=== PATIENT | male | born 1945 | race Caucasian/White ===

== ENCOUNTER 2018-09-10 08:30 | Inpatient (IN) ==
[2018-09-10] MEDS ORDERED: ZOFRAN ODT PO ONE (08:54)
[2018-09-10] MEDS ORDERED: MORPHINE IM ONE (08:54)
--- NOTE | 2018-09-10 09:07 | PROVIDER DOCUMENTATION ---
HPI-Musculoskeletal Pain/Inj - GENERAL Chief Complaint: Fall Stated Complaint: FALL/RT SIDE PAIN Time Seen by Provider: 09/10/18 08:40 - HX OF PRESENT ILLNESS-MUSKULOSKELTAL Nature of Presenting Problem: 73 y/o male patient presents with c/o right sided rib and left knee pain. He fell to the ground yesterday in the morning whiles trying to get into his car, buckling his left knee in the process , apart from hurting his right side . He hit his head as well but no nausea, vomiting, significant headache, dizziness, no mental status changes. Patient is on aspirin only. He has taken some oral opioids at home but still in pain. He uses a walker Quality of Pain: reports: sharp Severity in ED: severe Onset/Duration: 24 hours ago Timing: still present Any recent injury?: Yes Locality of Occurance: Home - FALL INJURY Location of Pain/Injury: reports: head (mild), chest (severe), lower extremity ( left knee) Reason for Fall: reports: lost balance Symptoms prior to fall:: reports: none Loss of Consciousness: no loss of consciousness Injury Associated Symptoms: reports: unable to bear weight (left knee). denies : dizziness, headaches Review of Systems - Adult - REVIEW OF SYSTEMS - ADULT Constitutional: reports: no symptoms reported Eyes: reports: no symptoms reported Ears, Nose, Mouth & Throat: reports: no symptoms reported Cardiovascular: reports: no symptoms reported Respiratory: reports: other (pain in right side of chest) Gastrointestinal: reports: no symptoms reported Genitourinary: reports: no symptoms reported Musculoskeletal: reports: joint pain Integumentary: reports: other (bruise on scalp) Neurological: reports: no symptoms reported Psychiatric: reports: no symptoms reported Endocrine: reports: no symptoms reported Hematologic/Lymphatic: reports: no symptoms reported Allergic/Immunologic: reports: no symptoms reported All Other Systems: Reviewed and Negative Past History - Adult - PAST MEDICAL HISTORY-ADULT Review of Records: reports: Nursing Assessment Review Major Childhood Illnesses: reports: denies history Cardiovascular: reports: A-Fib, CAD, HTN, hyperlipidemia Respiratory: reports: denies history Gastrointestinal: reports: GI bleed, other (hiatal hernia) Obstetrical/Gynecological: reports: denies history Genitourinary: reports: denies history Musculoskeletal: reports: other (weakness, chronic) Neurological: reports: denies history Endocrine/Immune: reports: Diabetes Other Conditions: reports: denies history - PRIOR SURGERIES/PROCEDURES Surgical/Procedure History: reports: EGD, cardiac stent, bowel surgery - FAMILY HISTORY Family History: reviewed, not pertinent - SOCIAL HISTORY Substance Use: none/never Alcohol Use Frequency: never Physical Exam-Injury Related - Physical Exam-Injury Related Initial Vital Signs Reviewed: Yes General Appearance: alert, moderate distress Eyes: PERRL/EOMI, pink conjunctivae Head, Ears, Nose, Mouth & Throat: moist mucous membranes, other (small bruise in occiput, without significant swelling nor tenderness) Neck: non-tender, full range of motion, supple Respiratory: decreased breath sounds, rib tenderness (right lower anterior chest wall). negative: rhonchi, wheezing Cardiovascular: tachycardia, irregularly irregular Abdominal Exam: normal bowel sounds, non tender, soft Extremity: pedal edema (trace in both lower extremities), swelling (minimal left knee), tenderness (left knee). negative: normal range of motion (very limited in left knee due to pain), deformity, erythema Integumentary: warm/dry, abrasion (minimal in occiput) Neurologic: grossly normal, no motor/sensory deficits Psych/Mental Status: oriented x 3 - Glascow Coma Score Best Eye Response (Min): (4) open spontaneously Best Verbal Response ([place]): (5) oriented Best Motor Response (Min): (6) obeys commands Progress - PLAN OF CARE/RESULTS Progress/Plan/Lab Results: Vital Signs - 8 hr 09/10/18 08:33 09/10/18 08:46 09/10/18 08:50 Temperature 97.9 F Pulse Rate 79 125 H 119 H Respiratory Rate 18 29 H 28 H Blood Pressure O2 Sat by Pulse Oximetry 90 L 99 99 09/10/18 08:52 09/10/18 08:56 09/10/18 09:00 Temperature Pulse Rate 134 H 115 H 127 H Respiratory Rate 25 H 25 H 18 Blood Pressure 140/119 179/93 O2 Sat by Pulse Oximetry 98 98 98 09/10/18 09:03 09/10/18 09:10 09/10/18 09:20 Temperature Pulse Rate 132 H 117 H 124 H Respiratory Rate 21 19 23 Blood Pressure 158/127 O2 Sat by Pulse Oximetry 98 98 98 09/10/18 09:50 09/10/18 09:55 09/10/18 10:00 Temperature Pulse Rate 123 H 117 H Respiratory Rate 19 25 H Blood Pressure O2 Sat by Pulse Oximetry 88 L 96 97 09/10/18 10:03 09/10/18 10:10 09/10/18 10:11 Temperature Pulse Rate 119 H 124 H 122 H Respiratory Rate 21 22 20 Blood Pressure 127/112 O2 Sat by Pulse Oximetry 97 97 93 L 09/10/18 10:20 09/10/18 10:30 09/10/18 10:40 Temperature Pulse Rate 125 H 120 H 134 H Respiratory Rate 24 22 19 Blood Pressure O2 Sat by Pulse Oximetry 96 95 97 09/10/18 10:50 09/10/18 11:00 09/10/18 11:04 Temperature Pulse Rate 106 H 126 H 123 H Respiratory Rate 21 20 24 Blood Pressure 171/150 O2 Sat by Pulse Oximetry 96 90 L 86 L 09/10/18 11:53 09/10/18 12:00 09/10/18 12:03 Temperature Pulse Rate 117 H 106 H Respiratory Rate 22 24 Blood Pressure 138/113 O2 Sat by Pulse Oximetry 97 88 L 98 09/10/18 12:47 09/10/18 13:00 09/10/18 13:04 Temperature Pulse Rate 117 H 133 H 66 Respiratory Rate 22 26 H 20 Blood Pressure 140/102 164/129 O2 Sat by Pulse Oximetry 95 93 L 93 L 09/10/18 13:05 Temperature Pulse Rate 130 H Respiratory Rate 24 Blood Pressure O2 Sat by Pulse Oximetry 93 L Laboratory Results - last 24 hr 09/10/18 09/10/18 09/10/18 11:35 11:45 11:45 WBC 7.51 RBC 3.95 L Hgb 10.8 L Hct 33.7 L MCV 85.3 MCH 27.3 MCHC 32.0 L RDW Std Deviation 15.6 H Plt Count 217 MPV 10.0 Immature Gran % (Auto) 0.5 Neut % (Auto) 73.8 Lymph % (Auto) 13.3 L [place] % (Auto) 8.0 Eos % (Auto) 4.1 Baso % (Auto) 0.3 Immature Gran # (Auto) 0.04 Neut # (Auto) 5.54 Lymph # (Auto) 1.00 L [place] # (Auto) 0.60 H Eos # (Auto) 0.31 Baso # (Auto) 0.02 PT INR PTT (Actin FS) D-Dimer, Quantitative 3.80 H Specimen Type ARTERIAL Sample Site R RADIAL pH 7.47 H pCO2 38 pO2 45 L* HCO3 27.6 H Base Excess 3.8 H Oxyhemoglobin 79.3 L* ABG O2 Sat (Calculated) 10.4 L ABG O2 Saturation 82.9 L ABG Carboxyhemoglobin 3.40 H ABG Methemoglobin 0.9 Quentin Test YES A-a O2 Difference 57.0 Total Hemoglobin 9.3 L Lactate 1.10 Blood Gas Modality ROOM AIR FiO2 % 21.0 Sodium Potassium Chloride Carbon Dioxide Anion Gap BUN Creatinine Estimated GFR/1.73 m2 BUN/Creatinine Ratio Glucose Calculated Osmolality Calcium Magnesium Total Bilirubin AST ALT Alkaline Phosphatase Creatine Kinase Troponin T [id number] Pept Total Protein Albumin Globulin Albumin/Globulin Ratio 09/10/18 09/10/18 09/10/18 11:45 11:45 11:45 WBC RBC Hgb Hct MCV MCH MCHC RDW Std Deviation Plt Count MPV Immature Gran % (Auto) Neut % (Auto) Lymph % (Auto) [place] % (Auto) Eos % (Auto) Baso % (Auto) Immature Gran # (Auto) Neut # (Auto) Lymph # (Auto) [place] # (Auto) Eos # (Auto) Baso # (Auto) PT 16.7 H INR 1.25 PTT (Actin FS) 37.2 D-Dimer, Quantitative Specimen Type Sample Site pH pCO2 pO2 HCO3 Base Excess Oxyhemoglobin ABG O2 Sat (Calculated) ABG O2 Saturation ABG Carboxyhemoglobin ABG Methemoglobin Quentin Test A-a O2 Difference Total Hemoglobin Lactate Blood Gas Modality FiO2 % Sodium 136 Potassium 4.0 Chloride 98 Carbon Dioxide 24 L Anion Gap 14 BUN 16 Creatinine 1.2 Estimated GFR/1.73 m2 59 BUN/Creatinine Ratio 13 Glucose 167 H Calculated Osmolality 277 Calcium 8.2 L Magnesium Total Bilirubin 0.86 AST 14 ALT 9 L Alkaline Phosphatase 80 Creatine Kinase 93 Troponin T < 0.010 Ykl-[id number]-Dormnktkxjb Pept Total Protein 6.5 Albumin 2.8 L Globulin 3.7 Albumin/Globulin Ratio 0.8 09/10/18 09/10/18 11:45 11:45 WBC RBC Hgb Hct MCV MCH MCHC RDW Std Deviation Plt Count MPV Immature Gran % (Auto) Neut % (Auto) Lymph % (Auto) [place] % (Auto) Eos % (Auto) Baso % (Auto) Immature Gran # (Auto) Neut # (Auto) Lymph # (Auto) [place] # (Auto) Eos # (Auto) Baso # (Auto) PT INR PTT (Actin FS) D-Dimer, Quantitative Specimen Type Sample Site pH pCO2 pO2 HCO3 Base Excess Oxyhemoglobin ABG O2 Sat (Calculated) ABG O2 Saturation ABG Carboxyhemoglobin ABG Methemoglobin Quentin Test A-a O2 Difference Total Hemoglobin Lactate Blood Gas Modality FiO2 % Sodium Potassium Chloride Carbon Dioxide Anion Gap BUN Creatinine Estimated GFR/1.73 m2 BUN/Creatinine Ratio Glucose Calculated Osmolality Calcium Magnesium 1.6 Total Bilirubin AST ALT Alkaline Phosphatase Creatine Kinase Troponin T Mrw-O-Fknlfuiahrv Pept 3351 H Total Protein Albumin Globulin Albumin/Globulin Ratio Orders Category Date Time Status CT ANGIOGRM PULMONARY ARTERIES [CT] Stat Exams 09/10/18 11:47 Completed KNEE 3 VIEWS LEFT [RAD] Stat Exams 09/10/18 08:53 Completed RIBS UNILAT W/PA CHEST RIGHT [RAD] Stat Exams 09/10/18 08:51 Completed ABG [RESP] Routine Lab 09/10/18 11:35 Completed CBC WITH ELECTRONIC DIFF [HEME] Stat Lab 09/10/18 11:45 Completed CK PROFILE [SP CHEM] Stat Lab 09/10/18 11:45 Completed COMPREHENSIVE METABOLIC PANEL [CHEM] Stat Lab 09/10/18 11:45 Completed D-DIMER [COAG] Stat Lab 09/10/18 11:45 Completed MAGNESIUM [CHEM] Stat Lab 09/10/18 11:45 Completed PRO B-NATRIURETIC PEPTIDE Stat Lab 09/10/18 11:45 Completed PT [PROTIME WITH INR] [COAG] Stat Lab 09/10/18 11:45 Completed PTT [COAG] Stat Lab 09/10/18 11:45 Completed TROPONIN T Stat Lab 09/10/18 11:45 Completed Furosemide [Lasix] Med 09/10/18 15:23 Discontinued 40 mg IV NOW ONE Ketorolac [Toradol] Med 09/10/18 15:12 Discontinued 15 mg IV NOW ONE Morphine Med 09/10/18 08:54 Discontinued 4 mg IM NOW ONE Ondansetron Odt [Zofran Odt] Med 09/10/18 08:54 Discontinued 4 mg PO NOW ONE EKG [EKG] Stat Ther 09/10/18 08:45 Draft Result Diagrams: 09/10/18 11:45 09/10/18 11:45 - REASSESSMENT Reassessment #1 Time Reassessed: 10:45 Status: improving (less pain in ribs and left knee; patient is currently not on anticoagulant due to h/o GI bleed) Reassessment #2 Time Reassessed: 11:45 Status: worsening (patient has oxygen saturations in the low 80s on room air, as such further work up of hypoxemia will be done) - EKG 1 Time of EKG reading by physician:: 08:46 EKG Read and Signed by:: Wilbert Solis EKG Interpretation (*Must complete 3 of following elements*): Abnormal (atrial fibrillation with rapid ventricular response) Rate: 131 [place]: normal - XRAY 1 XRAY: Left XRAY Study: Knee Impression: Normal ( EXAM: KNEE 3 VIEWS LEFT HISTORY: fall; left knee pain TECHNIQUE: Left knee, three views COMPARISON: None. FINDINGS: No fracture. No dislocation. Moderate to prominent arthritis. Moderate atherosclerosis. IMPRESSION: No acute bony injury. Electronically signed by Rob Young 09/10/2018 9:48 AM 09/10/18 0948 Interpreting Physician: Rob Young MD Dictated Date/Time: 09/10/18 0930) 2 XRAY: Right XRAY Study: Ribs Impression: Abnormal ( EXAM: RIBS UNILAT W/PA CHEST RIGHT INDICATION: fall; left lower sided chest pain TECHNIQUE: 5 views COMPARISON: None. FINDINGS : There are several healed rib fractures on the right. These can also be seen on the prior CT of the chest dated 02/07/2018. No definite acute rib fracture can be identified by plain radiograph. There are fibrotic changes throughout the right lung. There is a small chronic pleural effusion on the left that can also be seen on the prior CT. No pleural fluid collection or pneumothorax is identified. IMPRESSION: Several chronic appearing rib fractures on the right. No acute fracture is identified by plain radiograph. Electronically signed by Neno Mckeon 09/10/2018 10:21 AM 09/10/18 1021 Interpreting Physician: Neno Mckeon MD Dictated Date/Time: 09/10/18 1019) XRAY Interpretation: No acute fracture - CT/MRI 1 CT Study: Angiogram, Thorax Impression: Abnormal ( EXAM: CT ANGIOGRM PULMONARY ARTERIES 09/10/2018 HISTORY : chest pain; hypoxemia TECHNIQUE: This exam was performed using automated exposure control, adjustment of mA or kV according to patient size, and/or use of iterative reconstruction technique. COMMENT: 3-D MIPS were performed. The current examination is compared with 02/07/2018. There are bilateral pleural effusions. There was previously no fluid on the right side. The left effusion was present previously. Some of this may be loculated anteriorly on the current study. There are no filling defects in the pulmonary arteries. The aorta is normal in caliber without evidence of dissection. There are some atherosclerotic calcifications with extensive calcification within the coronary arteries. There is compressive atelectasis in both lung bases. The possibility of pneumonia particularly in the lower lobes cannot be excluded. The possibility of pulmonary edema cannot be excluded. In the inferior portion of the right upper lobe there is ill-defined groundglass/interstitial opacity which was not as severe on the previous study however there may have been some degree of interstitial edema and/or fibrosis at that time. There are number of enlarged mediastinal nodes particularly in the right paratracheal region where there is a node measuring over 21mm. This measured over 22 mm at the time the previous study IMPRESSION: New right pleural effusion. Worsened pulmonary edema and/or pneumonia since 02/07/2018. No evidence of pulmonary emboli. Electronically signed by Yehuda Roldan 09/10/2018 2:18 PM 09/10/18 1418 Interpreting Physician: Yehuda Roldan MD Dictated Date/Time: 1413) - CONSULTS/PCP/HOSPITALIST Notification #1 *Consult/PCP/Hospitalist*: KAVEH Hoyos/Dr. Figueroa Time Discussed: 15:32 Consult Disposition: Admit Departure - Departure Date of Disposition Decision: 09/10/18 Time of Disposition Decision: 15:32 DIAGNOSIS: Rib pain on right side, Atrial fibrillation with rapid ventricular response Fall Qualifiers: Encounter type: initial encounter Qualified Code(s): W19.XXXA - Unspecified fall, initial encounter Knee pain, acute Qualifiers: Laterality: left Qualified Code(s): M25.562 - Pain in left knee Pulmonary edema Qualifiers: Chronicity: acute Qualified Code(s): J81.0 - Acute pulmonary edema Respiratory failure with hypoxia Qualifiers: Chronicity: acute Qualified Code(s): J96.01 - Acute respiratory failure with hypoxia Disposition: ADMITTED INPATIENT 09 Certified Medical Emergency: Emergent Condition: Serious Discharge Education: Fall Prevention in the Home, [id number], Rib Contusion, Knee Pain, Adult, [id number], Atrial Fibrillation, [id number] - Critical Care Note This patient required my direct & personal management of CC.: No Attestation - Physician/ LOIVER Attestation The physician spent face to face time with patient:: Yes Advanced Practice Provider documentation review:: Supervising physician onsite and consulted in the evaluation and care of this patient. The physician did have a face to face encounter with the patient.
--- NOTE | 2018-09-10 09:50 | Diag Imaging Result Doc PS360 ---
EXAM: KNEE 3 VIEWS LEFT HISTORY: fall; left knee pain TECHNIQUE: Left knee, three views COMPARISON: None. FINDINGS: No fracture. No dislocation. Moderate to prominent arthritis. Moderate atherosclerosis. IMPRESSION: No acute bony injury. Electronically signed by Rob Young 09/10/2018 9:48 AM
--- NOTE | 2018-09-10 10:23 | Diag Imaging Result Doc PS360 ---
EXAM: RIBS UNILAT W/PA CHEST RIGHT INDICATION: fall; left lower sided chest pain TECHNIQUE: 5 views COMPARISON: None. FINDINGS: There are several healed rib fractures on the right. These can also be seen on the prior CT of the chest dated 02/07/2018. No definite acute rib fracture can be identified by plain radiograph. There are fibrotic changes throughout the right lung. There is a small chronic pleural effusion on the left that can also be seen on the prior CT. No pleural fluid collection or pneumothorax is identified. IMPRESSION: Several chronic appearing rib fractures on the right. No acute fracture is identified by plain radiograph. Electronically signed by Neno Mckeon 09/10/2018 10:21 AM
[2018-09-10 11:40] LABS: ALLEN TEST YES; BE 3.8 mmoll (-3.0-3.0); BLOOD TYPE ARTERIAL; HCO3-(ACT) 27.6 mmoll (20.0-26.0); METHB 0.9 % (0.0-1.5); O2(CT) 10.4 mL/dL (15.0-23.0); PCO2(98.6) 38 mmHg (35-45); SAMPLE BLOOD; SAO2 82.9 % (95.0-100.0); THB 9.3 g/dL (11.5-17.4); pH(98.6) 7.47 (7.35-7.45)
[2018-09-10 11:41] LABS: MODALITY ROOM AIR; O2HB 79.3 % (95.0-99.0); PO2(98.6) 45 mmHg (60-100)
[2018-09-10 12:05] LABS: BASO# 0.02 X1000 (0.0-0.2); BASO% 0.3 % (0.0-0.8); EOS# 0.31 X1000 (0.0-0.7); EOS% 4.1 % (0.0-10.0); HEMATOCRIT 33.7 % (42.0-52.0); HEMOGLOBIN 10.8 g/dL (14.0-18.0); IMM GRAN# 0.04 X1000 (0.0-0.04); IMM GRAN% 0.5 % (0.0-0.5); LYMPH% 13.3 % (20.5-51.1); MCH 27.3 PG (27-31); MCV 85.3 FL (81-99); NEUT# 5.54 X1000 (1.4-6.5); NEUT% 73.8 % (42.2-75.2); PLT 217 X1000 (130-400); RBC 3.95 XMIL (4.7-6.1); RDW 15.6 % (11.5-14.5); WBC 7.51 X1000 (4.8-10.8)
[2018-09-10 12:16] LABS: INR 1.25; PROTIME 16.7 Seconds (11.0-16.0)
[2018-09-10 12:17] LABS: PTT 37.2 Seconds (22.3-41.8)
[2018-09-10 12:30] LABS: ALB/GLOB RATIO 0.8; ALBUMIN 2.8 g/dL (3.5-5.0); CALCIUM 8.2 mg/dL (8.8-10.2); CREATININE 1.2 mg/dL (0.7-1.2); TOTAL BILIRUBIN 0.86 mg/dL (0.20-1.00); TOTAL PROTEIN 6.5 g/dL (6.3-8.3)
--- NOTE | 2018-09-10 14:20 | Diag Imaging Result Doc PS360 ---
EXAM: CT ANGIOGRM PULMONARY ARTERIES 09/10/2018 HISTORY: chest pain; hypoxemia TECHNIQUE: This exam was performed using automated exposure control, adjustment of mA or kV according to patient size, and/or use of iterative reconstruction technique. COMMENT: 3-D MIPS were performed. The current examination is compared with 02/07/2018. There are bilateral pleural effusions. There was previously no fluid on the right side. The left effusion was present previously. Some of this may be loculated anteriorly on the current study. There are no filling defects in the pulmonary arteries. The aorta is normal in caliber without evidence of dissection. There are some atherosclerotic calcifications with extensive calcification within the coronary arteries. There is compressive atelectasis in both lung bases. The possibility of pneumonia particularly in the lower lobes cannot be excluded. The possibility of pulmonary edema cannot be excluded. In the inferior portion of the right upper lobe there is ill-defined groundglass/interstitial opacity which was not as severe on the previous study however there may have been some degree of interstitial edema and/or fibrosis at that time. There are number of enlarged mediastinal nodes particularly in the right paratracheal region where there is a node measuring over 21mm. This measured over 22 mm at the time the previous study IMPRESSION: New right pleural effusion. Worsened pulmonary edema and/or pneumonia since 02/07/2018. No evidence of pulmonary emboli. Electronically signed by Yehuda Roladn 09/10/2018 2:18 PM
--- NOTE | 2018-09-10 14:29 | EKG Report ---
Test Performed on : 09/10/2018 08:46:47 AM Test Reason : NO EKG ORDER FOR MUSE Blood Pressure : / mmHG Vent. Rate : 131 BPM Atrial Rate : 115 BPM P-R Int : 000 ms QRS Dur : 094 ms QT Int : 338 ms P-R-T Axes : 000 003 025 degrees QTc Int : 499 ms Atrial fibrillation. with rapid ventricular response. with premature ventricular or aberrantly conduc vanessa complexes. Abnormal ECG When compared with ECG of 06-OCT-2015 10:55, Left anterior fascicular block is no longer present Unconfirmed Result
[2018-09-10] MEDS ORDERED: TORADOL IV ONE (15:12)
[2018-09-10] MEDS ORDERED: LASIX IV ONE (15:23)
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
[2018-09-10] MEDS: ROCEPHIN 1 GM in NS 50 ML IV SCH (17:36)
[2018-09-10 18:10] LABS: BASO# 0.02 X1000 (0.0-0.2); BASO% 0.3 % (0.0-0.8); EOS# 0.39 X1000 (0.0-0.7); EOS% 6.1 % (0.0-10.0); HEMOGLOBIN 10.5 g/dL (14.0-18.0); IMM GRAN# 0.05 X1000 (0.0-0.04); IMM GRAN% 0.8 % (0.0-0.5); LYMPH# 0.87 X1000 (1.2-3.4); LYMPH% 13.5 % (20.5-51.1); MCH 27.3 PG (27-31); MCHC 31.8 g/dL (33-37); MCV 85.9 FL (81-99); MONO# 0.62 X1000 (0.11-0.59); MONO% 9.6 % (1.7-9.3); NEUT# 4.48 X1000 (1.4-6.5); NEUT% 69.7 % (42.2-75.2); PLT 224 X1000 (130-400); RBC 3.84 XMIL (4.7-6.1); RDW 15.7 % (11.5-14.5); WBC 6.43 X1000 (4.8-10.8)
[2018-09-10 18:20] LABS: IRON SATURATION 17 %; TIBC 243 ug/dL; TOTAL IRON 42 ug/dL (53-167); UNBOUND IRON 201 ug/dL (112-346)
[2018-09-10] MEDS: CARDIZEM PO SCH (18:22)
[2018-09-10] MEDS: DUONEB (A & A) INH SCH ×2 (19:01→23:20)
[2018-09-10] MEDS: LOPRESSOR PO SCH (21:26)
[2018-09-10] MEDS: HUMULIN R SUBQ SCH (21:26)
[2018-09-11] MEDS: MORPHINE IV PRN ×5 (01:24→19:59)
[2018-09-11 02:24] LABS: CK INDEX 1.4 (0.0-2.5); CK-MB 3.06 ng/mL (0.0-5.0)
[2018-09-11] MEDS: DUONEB (A & A) INH SCH ×6 (03:48→23:30)
[2018-09-11 05:23] LABS: BASO# 0.01 X1000 (0.0-0.2); BASO% 0.1 % (0.0-0.8); EOS# 0.33 X1000 (0.0-0.7); EOS% 4.6 % (0.0-10.0); HEMATOCRIT 32.1 % (42.0-52.0); HEMOGLOBIN 10.2 g/dL (14.0-18.0); IMM GRAN# 0.06 X1000 (0.0-0.04); IMM GRAN% 0.8 % (0.0-0.5); LYMPH# 0.77 X1000 (1.2-3.4); LYMPH% 10.7 % (20.5-51.1); MCH 27.5 PG (27-31); MCHC 31.8 g/dL (33-37); MCV 86.5 FL (81-99); MONO# 0.58 X1000 (0.11-0.59); MPV 9.9 FL (7.4-10.4); NEUT# 5.48 X1000 (1.4-6.5); NEUT% 75.8 % (42.2-75.2); PLT 214 X1000 (130-400); RBC 3.71 XMIL (4.7-6.1); RDW 15.8 % (11.5-14.5); WBC 7.23 X1000 (4.8-10.8)
[2018-09-11 05:36] LABS: HEMOGLOBIN A1C 6.1 % (4.8-6.0)
[2018-09-11 05:44] LABS: CALCIUM 7.7 mg/dL (8.8-10.2); CREATININE 1.5 mg/dL (0.7-1.2); POTASSIUM 4.1 mmol/L (3.5-5.1)
--- NOTE | 2018-09-11 07:32 | EKG Report ---
Test Performed on : 09/11/2018 06:45:09 AM Test Reason : afib rvr Blood Pressure : / mmHG Vent. Rate : 113 BPM Atrial Rate : 120 BPM P-R Int : 000 ms QRS Dur : 096 ms QT Int : 346 ms P-R-T Axes : 000 -04 -18 degrees QTc Int : 474 ms Atrial fibrillation. with rapid ventricular response. with premature ventricular or aberrantly conduc vanessa complexes. Low voltage QRS Abnormal ECG When compared with ECG of 10-SEP-2018 08:46, (Unconfirmed) No significant change was found Confirmed by Mendoza SOLIMAN, Quentin Roper ([id number]) on 09/11/2018 4:52:38 PM
[2018-09-11] MEDS ORDERED: LASIX IV SCH (08:00)
[2018-09-11] MEDS: HUMULIN R SUBQ SCH ×2 (08:09→20:00)
[2018-09-11] MEDS: ASPIRIN PO SCH (08:10)
[2018-09-11] MEDS: LOPRESSOR PO SCH ×2 (08:10→20:00)
[2018-09-11] MEDS: CARDIZEM PO SCH ×3 (08:10→20:00)
--- NOTE | 2018-09-11 10:16 | Diag Imaging Result Doc PS360 ---
EXAM: CHEST-2 VIEWS 09/11/2018 HISTORY: POST THORACENTESIS TECHNIQUE: Inspiratory expiratory PA upright COMMENT: There is no evidence of pneumothorax. Considering differences in technique the appearance of the chest has not changed appreciably since the previous examination of 09/10/2018. There is still a fair amount of pleural fluid on the left and there is apparent pulmonary edema. There is cardiomegaly. IMPRESSION: No evidence of pneumothorax. Pulmonary edema cardiomegaly and left pleural effusion. Electronically signed by Yehuda Roldan 09/11/2018 10:14 AM
--- NOTE | 2018-09-11 11:24 | PROGRESS NOTE ---
DATE: 09/11/2018 SUBJECTIVE: This patient is complaining a little bit of shortness of breath and left knee pain. He fell a few days ago and he hit his left knee. X-ray did not show any acute bony abnormality or injury. No fracture. He just had a thoracentesis done on the right side and only a small amount of fluid has been removed, less than 50 mL. I do believe it is 44 mL. Pulmonary department is on board. He is still in atrial fibrillation with RVR but the heart rate has been in the 110s mostly. We have placed this patient back on diltiazem and metoprolol tartrate. Cardiology department has been consulted. He has not been on anticoagulation before because he had a really severe GI bleed. Apparently, he required around 11 units of blood. He was transferred to [facility] and apparently they did a capsule endoscopy. They did not find the source of bleeding. I do believe this is the reason why he is not on blood thinners at this moment, only aspirin. OBJECTIVE: Vital Signs: Temperature. 99.5, pulse 113, respiratory rate 20, blood pressure 154/94, oxygen saturation 93 on 2 L of nasal cannula. HEENT: Head normocephalic. No trauma. PERRLA. Neck: Supple. No JVD. No masses. Central trachea. Chest: Decreased breath sounds at the bases with some rales at the bases as well. Abdomen: Soft, obese, protuberant, nontender, nondistended. No hepatosplenomegaly. Extremities: No edema. No clubbing. No cyanosis. His left knee looks a little bit more edematous compared with the right knee. No signs of infection. A little bit of localized redness which is painful to palpation. Neurological Examination: Alert and oriented x3. No focal deficits. Laboratory: WBCs 7.2, hemoglobin 10.2, hematocrit 32.1, platelets 214,000. Sodium 133, potassium 4.1, chloride 96, bicarbonate 26, BUN 22, creatinine 1.5, glucose 216, hemoglobin A1c 6.1, calcium 7.7. Troponins negative x3. ASSESSMENT AND PLAN: 1. Bilateral pleural effusion with hypoxemic respiratory failure, status post thoracentesis on the right side. Also, he is getting diuretics. He has been placed on 40 of Lasix twice a day but I will decrease it to once a day due to his chronic kidney disease. From the thoracentesis, they removed just a little bit of fluid, I do believe around 44 mL. I do not think this patient has pneumonia, at least clinically, but he has been placed on ceftriaxone. I will wait for the sputum culture. I will keep him on antibiotics for at least 1 or 2 more days. Blood cultures so far negative. 2. Atrial fibrillation with rapid ventricular response. His heart rate has been mostly in the 110s. This is probably the cause of his pulmonary venous hypertension and pleural effusion. Probably congestive heart failure as well. 3. History of chronic obstructive pulmonary disease. He is not complaining of chest pain. Troponins are negative x3. 4. Morbid obesity with a body mass index of 40.3. 5. Soft tissue injury to his left knee due to recent trauma. Aware. No bony abnormality on the x-ray. He may need to go to rehabilitation to improve his deconditioning and weakness. 6. History of severe gastrointestinal bleed. He had an esophagogastroduodenoscopy done on 08/24/2018 that showed gastritis. He is not complaining of shortness of breath or abdominal pain. He also had apparently a capsule endoscopy done at [facility] and they did not find a source of infection. 7. Type 2 diabetes. Continue with the sliding scale insulin and pattern of blood sugar. We will monitor. 8. Patient seems to be stable at this moment. Probably will need to get a thoracentesis done today in the afternoon or tomorrow morning on the left side, which I believe is bigger than the right side. Cardiology department and pulmonary department consulted, pending recommendations. cc: Baron Cisneros MD
[2018-09-11 14:09] LABS: TOTAL PROT BODY FLUID 2.8 g/dL
[2018-09-11 14:21] LABS: AMYLASE BODY FLUID 27 U/L; GLUCOSE BODY FLUID 235 mg/dL; LDH BODY FLUID 167 U/L
[2018-09-11 14:56] LABS: SPECIMEN PLEURAL FLUID
[2018-09-11 15:10] LABS: BODY FLUID SOURCE PLEURAL FLUID; MONOS 87 %; POLYS 13 %; WBC BF 1942 /cumm
[2018-09-11] MEDS: ROCEPHIN 1 GM in NS 50 ML IV SCH (16:12)
[2018-09-11] MEDS ORDERED: NAPROSYN PO PRN (16:40)
[2018-09-11 16:45] LABS: URINE SOURCE CLEAN CATCH
[2018-09-11 16:51] LABS: BILIRUBIN URINE NEGATIVE (NEGATIVE); BLOOD URINE MODERATE (NEGATIVE); COLOR YELLOW; GLUCOSE URINE NEGATIVE (NEGATIVE); KETONE URINE NEGATIVE (NEGATIVE); LEUKOCYTES URINE NEGATIVE (NEGATIVE); NITRITE URINE NEGATIVE (NEGATIVE); PH URINE 5.5; PROTEIN URINE 30 mg/dL (NEGATIVE); SP GRAVITY URINE 1.022; TURBIDITY URINE CLEAR (CLEAR); UROBILINOGEN URINE NORMAL (NORMAL)
[2018-09-11 16:52] LABS: UR EPITHELIAL CELLS <10 /HPF (<10); URINE BACTERIA NEGATIVE /HPF; URINE WBC <10 /HPF (<10)
[2018-09-11] MEDS: ULTRAM PO PRN (17:42)
--- NOTE | 2018-09-11 18:14 | CARDIOLOGY CONSULTATION ---
DATE: 09/11/2018 CHIEF COMPLAINT ON PRESENTATION: Severe pain in bilateral knees as well as the right chest wall area and upper abdomen. HISTORY OF PRESENT ILLNESS: Mr. Ramirez is a 73-year-old gentleman who presented with significant pain that occurred earlier this week after he had a fall. He noted bilateral knee pain as well as he injured his ribs and had significant pain in the right chest wall area as well as the upper abdomen. The patient noted that the fall occurred due to slipping. He did not have a syncopal episode. He has not had any recent chest pain. The patient reports that his shortness of breath has been relatively at baseline lately. He denies any orthopnea. He has not had any palpitations. PAST MEDICAL HISTORY: Significant for: 1. Coronary artery disease. His last cardiac catheterization was performed in 2014. At that time he was found to have an eccentric 30% stenosis in his left main. His LAD had an 85% stenosis. The circumflex had luminal irregularities. The right coronary had mild luminal irregularities. He had a PCI performed with a 3.0 x 24 mm Rio Promus drug-eluting stent to the mid LAD. 2. History of GI bleeding. The patient had a significant GI bleed following the percutaneous coronary intervention that resulted in his discontinuation of dual-antiplatelet therapy. He has not been on anticoagulation for his atrial fibrillation secondary to his significant amount of GI bleeding in the past. 3. Chronic diastolic heart failure. His last evaluation of his ejection fraction was noted by nuclear scan in January 2016. His ejection fraction was 42%. His echo in 2016 had an EF in the order of 45% to 50%. 4. Chronic atrial fibrillation. 5. Hypertension. 6. Hyperlipidemia. 7. Diabetes. 8. History of chronic renal insufficiency. 9. Morbid obesity. SOCIAL HISTORY: He has no tobacco use currently FAMILY HISTORY: Significant for hypertension. REVIEW OF SYSTEMS: A 10-system review of systems is negative except for those as mentioned in the HPI. PHYSICAL EXAMINATION: Vital Signs: The patient has been afebrile. His T max during this hospitalization was 99.5. His heart rates have been predominantly in the 100s to 110s. His most recent blood pressure was noted to be 154/94. General: He is in mild to moderate distress secondary to pain in his bilateral legs as well as his right rib area. Eyes: [facility] conjunctivae and white sclerae. Neck: Shows no obvious thyromegaly or thyroid tenderness. Cardiovascular: He sounds to be in a mildly tachycardic and irregular rhythm. He has no obvious murmurs heard. He has somewhat distant heart sounds. He has trace to mild bilateral lower extremity edema with warm and well-perfused lower extremities. Chest: Has somewhat poor inspiratory effort. He has no increased work of breathing. He has mild reduction in breath sounds somewhat diffusely. Abdomen: Soft and nontender with no obvious organomegaly. Skin: Warm and dry throughout without any rashes. Neurologic: He is moving all extremities well. He has no lateralizing deficits. Psychiatric: He is alert, oriented and pleasant. Normal mood and affect. PERTINENT DATA: The patient's initial pulmonary arteriogram demonstrates a new right pleural effusion, worsening pulmonary edema or pneumonia since January 2018. No evidence of pulmonary emboli. His knee x-ray was unremarkable for any acute bony injury. His chest x-ray had mild cardiomegaly with mild pulmonary edema and small pleural effusions. His rib films show no evidence of any acute fractures. His lab data shows a white count of 7.2, hematocrit of 32, platelet count of 214. His sodium is 133, potassium is 4.1. His BUN is 22, creatinine 1.5. His pro-BNP is 3351. His TSH is 5.41. He has negative cardiac enzymes. ASSESSMENT: Mr. Ramirez is a 73-year-old gentleman with atrial fibrillation. He suffered a fall. PLAN: He has pleural effusions present. Notably, his albumin is 2.8, and looking back at his history, his albumins have been relatively low for quite some time. I will check a urinalysis as well as an abdominal ultrasound. Presently from a cardiovascular standpoint, I would not recommend any acute medication changes given the fact that his atrial fibrillation, I believe, is slightly rapid secondary to pain. I will add in an oral narcotic as well as a bowel regimen to help assist with pain control, and since the patient is receiving occasional narcotics. cc: Abiodun Bustamante MD
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
--- NOTE | 2018-09-12 03:56 | CONSULTATION ---
DATE OF CONSULTATION: 09/11/2018 HISTORY OF PRESENT ILLNESS: This is a 73-year-old male who complains of left knee pain. He reports he was getting into his car with his right leg and his left knee twisted. He fell and landed on the concrete with his left knee. He reports that he cannot bend his knee well. He reports he has lateral and medial side pain. He also reports his knee is extremely swollen. PAST MEDICAL HISTORY: Coronary artery disease, GI bleed, high cholesterol, diabetes mellitus, GERD, chronic atrial fibrillation, and a history of pleural effusions. ALLERGIES: He is allergic to Lasix and sulfa. SOCIAL HISTORY: Denies tobacco or alcohol use. FAMILY HISTORY: There is a history of heart and lung disease. REVIEW OF SYSTEMS: General: He denies weight loss or gain. He denies fever. HEENT: No changes in visual or hearing acuity. Neck: No lymphadenopathy. Respiratory: There is equal chest expansion. He denies shortness of breath. He does report that he had some shortness of breath that comes and goes. GI: Denies complaints. Endocrine: Reports weakness at times. PHYSICAL EXAMINATION: Vital Signs: Temperature 97.6 degrees, pulse rate 102, respiratory rate 20, blood pressure 138/93, oxygen 96% on room air. General: The patient is resting comfortably in the bed. HEENT: Pupils are equal, round, and reactive. Abdomen: Soft and nontender. Extremities: There is mild edema to the left knee. There is decreased range of motion to the knee. There is a positive Kat's sign. There is a negative Homans sign. There is a questionable Spring test. There is moderate medial and lateral joint line tenderness. There is good capillary refill in the toes. There are good pedal pulses. LABS: White blood cells 7.23. INR is 1.25. His D-dimer was elevated at 3.80. Sodium 133, chloride 96, creatinine of 0.5, glucose 216. Hemoglobin A1c 6.1. His troponin was 0.01. His BNP was 3351. His TSH is 5.41. X-ray of the left knee is normal with moderate DJD of the knee. ASSESSMENT/PLAN: 1. Contusion, left knee. 2. Degenerative joint disease, left knee. 3. He could have a possible medial cruciate ligament strain or medial meniscal tear. At this time, we will place him in a knee immobilizer on the left side. We will start him out using crutches. We will see him in the office for followup. If he fails to improve, we will order an MRI of the left knee. We have started naproxen twice daily to help with inflammation and pain in the knee. We will see him in the office soon. Dictated by ALEJANDRA Hernandez for Neno Teran MD cc: ALEJANDRA Hernandez MD
[2018-09-12] MEDS: MORPHINE IV PRN ×6 (04:02→19:34)
[2018-09-12] MEDS: DUONEB (A & A) INH SCH ×6 (04:41→23:30)
[2018-09-12 05:54] LABS: CALCIUM 8.5 mg/dL (8.8-10.2); CREATININE 1.9 mg/dL (0.7-1.2); POTASSIUM 4.2 mmol/L (3.5-5.1)
--- NOTE | 2018-09-12 07:41 | EKG Report ---
Test Performed on : 09/12/2018 06:50:52 AM Test Reason : afib rvr Blood Pressure : / mmHG Vent. Rate : 086 BPM Atrial Rate : 079 BPM P-R Int : 000 ms QRS Dur : 102 ms QT Int : 418 ms P-R-T Axes : 000 002 001 degrees QTc Int : 500 ms Atrial fibrillation. Low voltage QRS Cannot rule out Anterior infarct , age undetermined Prolonged QT Abnormal ECG When compared with ECG of 11-SEP-2018 06:45, Minimal criteria for Anterior infarct are now present Confirmed by Mendoza SOLIMAN, Quentin Roper ([id number]) on 09/12/2018 4:15:31 PM
[2018-09-12] MEDS: ASPIRIN PO SCH (08:25)
[2018-09-12] MEDS: HUMULIN R SUBQ SCH ×4 (08:26→20:35)
[2018-09-12] MEDS: LOPRESSOR PO SCH ×2 (08:26→20:36)
[2018-09-12] MEDS: ULTRAM PO PRN ×2 (08:26→20:36)
[2018-09-12] MEDS: CARDIZEM PO SCH ×3 (08:26→20:36)
[2018-09-12] MEDS: COLACE PO SCH (08:26)
[2018-09-12] MEDS ORDERED: LASIX IV SCH (09:00)
--- NOTE | 2018-09-12 09:34 | Diag Imaging Result Doc PS360 ---
EXAM: US ABDOMEN-COMPLETE INDICATION: hypoalbuminemia, eval liver COMPARISON: Renal ultrasound dated 02/09/2015 FINDINGS: The gallbladder appears normal with no stones, wall thickening, or pericholecystic fluid. The common bile duct is normal in diameter. Sonographic Ramirez's sign was reported to be negative. The liver is grossly unremarkable. Portal venous flow is hepatopetal. The pancreas is largely obscured by gas. The aorta and IVC are also partially obscured. The visualized portion is unremarkable. The spleen is mildly prominent measuring up to 15 cm in length. The kidneys are grossly unremarkable. A left-sided pleural effusion is noted incidentally. IMPRESSION: 1.Mildly prominent spleen. 2.Incidental left-sided pleural effusion. Electronically signed by Neno Mckeon 09/12/2018 9:32 AM
--- NOTE | 2018-09-12 11:20 | ECHO REPORT ---
ORDER DATE: 09/11/2018 INTERPRETING PHYSICIAN: Dr. Clay Reid. ECHOCARDIOGRAPHIC MEASUREMENTS: Interventricular septum: 1.0 cm. Left ventricular posterior wall: 1.0 cm. Diastolic diameter: 5.5 cm. Left atrium: 4.3 cm. Aorta: 3.3 cm. SUMMARY OF THE 2-DIMENSIONAL IMAGING: Technically suboptimal study, very poor acoustic window. Definity was used to assess left ventricular systolic function. Aortic valve leaflets are calcified, trileaflet. Pulmonic valve was normal. There is mitral annular calcification. Tricuspid valve was normal. Mitral valve leaflets were normal. There is left atrial enlargement. There is mild mitral regurgitation. Mild tricuspid regurgitation. Peak velocity across the tricuspid valve was 2.2 m/sec. Peak velocity across the aortic valve was 2.5 m/sec with a peak gradient of 24 mmHg. There is aortic sclerosis. There is trace aortic regurgitation. Normal left ventricular cavity size. Estimated ejection fraction of 55-60%. Atrial fibrillation with tachycardia was noted. This could overestimate the left ventricular systolic function. There is no pericardial effusion. cc: MD Neil Kwon CRNP
--- NOTE | 2018-09-12 11:27 | Diag Imaging Result Doc PS360 ---
EXAM: US THORACENTESIS W/IMAGE GUIDE 09/11/2018 HISTORY: Right effusion TECHNIQUE: Ultrasound-guided right thoracentesis COMMENT: The risks and benefits of the procedure were discussed with the patient and he agreed to the procedure. Following sterile preparation of the skin posteriorly and administration 1% lidocaine to the skin and deeper soft tissues, a 22-gauge needle was advanced into the small pleural fluid collection posteriorly under ultrasonographic guidance. 40 mL of blood-tinged fluid was aspirated and sent to the laboratory. There are no immediate complications. IMPRESSION: Successful ultrasound-guided right thoracentesis. Electronically signed by Yehuda Roldan 09/12/2018 11:24 AM
--- NOTE | 2018-09-12 13:33 | PROGRESS NOTE ---
DATE: 09/12/2018 SUBJECTIVE DATA: Mr. Ramirez reports that his pain has significantly increased in his left knee. By report right now at rest, his pain is 8/10 and sharp. He reports the knee brace is not helping at this time. He also reports that it took about 4 people to help him ambulate around the hallway. OBJECTIVE DATA: There is moderate to severe tenderness to the lateral and medial aspects of the knee. There is decreased range of motion. There is a positive Kat's test. There is a negative Homans sign. There are good pedal pulses. There is good capillary refill in the toes. There is no redness or signs of infection. There is mild to moderate edema in the knee. ASSESSMENT: Left knee pain. PLAN: We plan on continuing the knee immobilizer on the left side. I will order MRI of the left knee to rule out tibial plateau fracture or other internal derangement. We will check back on the patient and go over the MRI results with him. Dictated by ALEJANDRA Hernandez for Neno Teran MD cc: ALEJANDRA Hernandez MD
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
--- NOTE | 2018-09-12 14:49 | Diag Imaging Result Doc PS360 ---
EXAM: MRI LOWER EXT JT W/O CON-LEFT 09/12/2018 HISTORY: Left knee pain TECHNIQUE: T2 axial fat sat, sagittal T1 and T2, sagittal proton density fat sat, coronal STIR and T1 COMMENT: There are no previous studies. There is considerable subcutaneous edema on the lateral aspect of the knee. There is also some edema present in the lateral quadriceps musculature. There is a fairly large effusion. The medial meniscus appears somewhat truncated and there is degenerative change in the articular cartilage on both the medial femoral condyle and tibial plateau with subchondral cyst formation. There is some osteophyte formation in the lateral femoral condyle. There is an apparent tear of the posterior horn of the medial meniscus. The cruciate ligaments are intact. There is increased T2-weighted signal intensity in the anterior horn of the lateral meniscus which may indicate degeneration or tear. There is patellofemoral arthropathy. The quadriceps and patellar tendons appear to be intact. The collateral ligaments appear to be intact. IMPRESSION: Osteoarthritic changes particularly in the medial joint compartment. Medial and lateral meniscal tears as described. Subcutaneous and intramuscular edematous changes laterally as described. Electronically signed by Yehuda Roldan 09/12/2018 2:47 PM
--- NOTE | 2018-09-12 15:23 | PROGRESS NOTE ---
DATE: 09/12/2018 SUBJECTIVE: This patient states that he is feeling better. He is still complaining of left lower extremity knee pain. Has been placed on naproxen which I have stopped today because the kidney function has been getting worse. Also, I stopped the furosemide for now and I have contacted Nephrology Department for evaluation. Also, I spoke with the coding technician nurse practitioner to let her know what I did earlier with the medications. Vital signs are stable. I will continue with the rest of the management. OBJECTIVE: Vital Signs: Temperature 97.4, [id number], respiratory rate 15, blood pressure 136/86. Oxygen saturation 97% on 3 L of nasal cannula. HEENT: Head normocephalic. No trauma. PERRLA. Neck: Supple. No JVD. No masses. Central trachea. Chest: Decreased breath sounds at the bases with some rales at the bases as well, mostly on the on the left side. Abdomen: Soft, obese, protuberant. Nontender, nondistended. No hepatosplenomegaly. Extremities: No edema. No clubbing. No cyanosis. His left knee looks a bit more edematous compared with the right knee. No signs of infection. A little bit of localized redness which is painful to palpation. Neurologic: The patient is alert and oriented x 3. No focal deficits. LABORATORY: Sodium 135, potassium 4.2, chloride 98, bicarbonate 24, BUN 31, creatinine 1.9, glucose 225, calcium 8.5. ASSESSMENT AND PLAN: 1. Bilateral pleural effusions with hypoxemic respiratory failure, status post thoracentesis on the right side. He was getting diuretics which has been stopped because of acute on chronic kidney disease. I have placed a consult for Nephrology Department and I will monitor this patient closely. I also have stopped the naproxen due to his kidney dysfunction. 2. Atrial fibrillation with rapid ventricular response. Heart rate has been stable. Continue with the same management. Cardiology on board. 3. History of COPD. He is not complaining of shortness of breath or chest pain at this moment. Will monitor. 4. History of coronary artery disease. He is having no chest pain and troponins are negative x 3. 5. Morbid obesity, with a body mass index of 40.3, aware. 6. Soft tissue injury. 7. Left knee injury due to recent trauma, Orthopedic Surgery on board. This patient has been placed on naproxen, but I had to stop this in the morning because of the kidney dysfunction. 8. History of severe gastrointestinal bleed. He had an EGD done on 08/24/2018 that showed gastritis. He is not complaining of abdominal pain and apparently he had a capsule endoscopy done at [facility] and they did not identify any source of bleeding. 9. Type 2 diabetes. Continue with sliding scale insulin and pattern of blood sugar. I put this patient back on his home dose of Lantus. cc: Baron Cisneros MD MTDD
[2018-09-12] MEDS: ROCEPHIN 1 GM in NS 50 ML IV SCH (20:35)
[2018-09-12] MEDS ORDERED: BASAGLAR SUBQ SCH (21:00)
[2018-09-12 22:38] LABS: UR CREAT RANDOM 210.7 mg/dL (14-26); UR PROT RANDOM 35.7 mg/dL
[2018-09-13] MEDS: DUONEB (A & A) INH SCH ×5 (03:25→19:22)
[2018-09-13 05:21] LABS: HEMATOCRIT 28.3 % (42.0-52.0); HEMOGLOBIN 9.1 g/dL (14.0-18.0); MCH 27.9 PG (27-31); MCHC 32.2 g/dL (33-37); MCV 86.8 FL (81-99); MPV 10.3 FL (7.4-10.4); RBC 3.26 XMIL (4.7-6.1); RDW 15.7 % (11.5-14.5); WBC 7.48 X1000 (4.8-10.8)
[2018-09-13 05:57] LABS: CREATININE 1.8 mg/dL (0.7-1.2); POTASSIUM 4.4 mmol/L (3.5-5.1)
[2018-09-13] MEDS: MORPHINE IV PRN ×4 (06:38→20:18)
[2018-09-13] MEDS: HUMULIN R SUBQ SCH ×4 (06:38→20:35)
--- NOTE | 2018-09-13 07:11 | Diag Imaging Result Doc PS360 ---
EXAM: CHEST-1 VIEW HISTORY: assess pulmonary edema TECHNIQUE: Portable chest COMPARISON: 09/11/2018 FINDINGS: There are increased interstitial markings throughout both lungs. There is at least a small left pleural effusion. Underlying atelectasis or infiltrates in the left base. Heart is mildly prominent. IMPRESSION: Pulmonary edema with pleural fluid and possibly underlying pneumonia. Electronically signed by Rob Young 09/13/2018 7:09 AM
[2018-09-13] MEDS ORDERED: LANTUS SUBQ ONE (07:35)
--- NOTE | 2018-09-13 07:38 | EKG Report ---
Test Performed on : 09/13/2018 07:12:22 AM Test Reason : afib rvr Blood Pressure : / mmHG Vent. Rate : 106 BPM Atrial Rate : 150 BPM P-R Int : 000 ms QRS Dur : 102 ms QT Int : 362 ms P-R-T Axes : 000 -23 013 degrees QTc Int : 480 ms Atrial fibrillation. with rapid ventricular response. with premature ventricular or aberrantly conduc vanessa complexes. Low voltage QRS Cannot rule out Anterior infarct (cited on or before 12-SEP-2018) Abnormal ECG When compared with ECG of 12-SEP-2018 06:50, No significant change was found Confirmed by Mendoza SOLIMAN, Quentin Roper ([id number]) on 09/13/2018 4:08:03 PM
[2018-09-13] MEDS: ASPIRIN PO SCH ×2 (07:42→08:59)
[2018-09-13] MEDS: COLACE PO SCH ×2 (07:42→08:59)
[2018-09-13] MEDS: CARDIZEM PO SCH ×4 (07:42→20:18)
[2018-09-13] MEDS: LOPRESSOR PO SCH ×3 (07:42→20:18)
--- NOTE | 2018-09-13 07:43 | PROGRESS NOTE ---
DATE: 09/13/2018 Mr. Ramirez is seen status post followup for his knee injury. He underwent an MRI of the knee on the left lower extremity. This showed predominantly osteoarthritic changes with some degenerative meniscal tears. This can be treated nonsurgically just with anti-inflammatory medicine, standing walker, and mobilization as tolerated. There is no signs of fracture or other injury. We will consider a cortisone injection on an outpatient basis or possibly during his hospitalization if needed. We will follow up with him in the outpatient clinic when he is medically cleared and discharged from the hospital. In the interim, he can be mobilized with physical therapy with a walker. Will be available as needed. cc: Neno Teran MD
[2018-09-13] MEDS: BASAGLAR SUBQ SCH ×2 (07:45→08:59)
[2018-09-13 09:07] LABS: ALLEN TEST YES; BE 1.4 mmoll (-3.0-3.0); BLOOD TYPE ARTERIAL; O2(CT) 12.5 mL/dL (15.0-23.0); O2HB 94.6 % (95.0-99.0); PCO2(98.6) 44 mmHg (35-45); PO2(98.6) 86 mmHg (60-100); SAMPLE BLOOD; SAO2 98.5 % (95.0-100.0); THB 9.3 g/dL (11.5-17.4); pH(98.6) 7.39 (7.35-7.45)
[2018-09-13 09:08] LABS: MODALITY CANNULA
--- NOTE | 2018-09-13 10:23 | PROGRESS NOTE ---
DATE: 09/13/2018 SUBJECTIVE: This patient states that he is feeling about the same. His left lower extremity pain/left knee pain is better. For now, we will continue with the same management. He is not getting furosemide or NSAIDs because of his kidney dysfunction. Nephrology Department and Pulmonary Department following this patient closely. Chest x-ray show pulmonary edema and pleural fluid with possible underlying Pneumonia. OBJECTIVE: Vital Signs: Temperature 97.7 degrees, pulse 101, respiratory rate 18, blood pressure 132/62, oxygen saturation 97% on 3 L of nasal cannula. HEENT: Head normocephalic. No trauma. PERRLA. Neck: Supple. No JVD. No masses. Central trachea. Chest: Decreased breath sounds mostly at the bases with some rales and scattered crackles as well, mostly on the left side. Abdomen: Soft, protuberant, obese. Nontender, nondistended, no hepatosplenomegaly. Extremities: No edema. No clubbing. No cyanosis. His left knee looks a little bit edematous compared with the right knee, and he has been placed on a knee brace. Neurological examination: Alert and oriented x3. No focal deficits. LABORATORY: WBC 7.4, hemoglobin 9.1, hematocrit 28.3, platelets 212. Sodium 131, potassium 4.4, chloride 95, bicarbonate 24. BUN 40, creatinine 1.8, glucose 268, calcium 8. ASSESSMENT AND PLAN: 1. Bilateral pleural effusion with hypoxemic respiratory failure, status post thoracentesis on the right side. He was getting diuretics which has been stopped because of his acute on chronic kidney disease. Nephrology Department has been following this patient, as well as Pulmonary Department. We are going to avoid any kind of nephrotoxic medications at this moment. 2. Atrial fibrillation with rapid ventricular response. Heart rate has been stable. Continue with same management. Cardiology on board. 3. History of chronic obstructive pulmonary disease. He is wheezing a little bit today, but he is not complaining of too much shortness of breath. We will continue with breathing treatment. 4. History of coronary artery disease. He is not complaining of chest pain. Troponins are negative. 5. Morbid obesity with a body mass index of 40.3. Aware. 6. Left knee injury due to recent trauma. Orthopedic Surgery on board. They will monitor this patient as an outpatient. For now, we will continue with the knee brace and , once this patient is more stable, we will start with physical therapy. 7. History of severe gastrointestinal bleed. He had an esophagogastroduodenoscopy done on 08/24/2018 that showed gastritis. He is not complaining of abdominal pain or burning sensation in his stomach at this moment. Apparently he also had a capsule endoscopy done at [facility] and did not identify any source of bleeding. 8. Type 2 diabetes. Continue sliding scale insulin and pattern blood sugar. I have placed this patient back on his home dose of Lantus; usually he uses 45 units twice a day. Given his kidney dysfunction, I have placed this patient only on 45 units daily, but in the near future if he is more stable and the kidney function goes back to his baseline, we will put this patient back on his home dose medication which is twice a day. 9. Acute on chronic kidney disease, nephrology following. We will avoid nephrotoxic medications. cc: Baron Cisneros MD MTDD
--- NOTE | 2018-09-13 10:59 | NEPHROLOGY PROGRESS NOTE ---
DATE: 09/13/2018 SUBJECTIVE: Patient is sitting up in bed. He is about to undergo a breathing treatment. OBJECTIVE: Vital Signs: Temperature 97.7 degrees, pulse 65, respiratory rate 18, blood pressure 121/49. Intake 1.2 L; output 720 mL. General: Elderly gentleman resting in bed. Awake alert, no acute distress. HEENT: Normocephalic, atraumatic. MAKEDA. Oral mucosa moist. Cardiovascular: Regular rate and rhythm. Pulmonary: He has some expiratory wheeze, greater in the left upper lobe. Equal excursion otherwise on O2 supplementation. Abdomen: Soft, obese. Positive bowel sounds. : He is voiding. Extremities: Trace pretibial edema. No clubbing , cyanosis. Integumentary: Skin is warm and dry otherwise. LAB DATA: WBC of 7.4, hemoglobin 9.1. Sodium 131, potassium 4.4, CO2 24, creatinine 1.8, calcium 8.0. ASSESSMENT AND PLAN: 1. Acute on chronic kidney disease likely acute tubular necrosis secondary to contrast nonsteroidals and IV contrast. His creatinine appears to have plateaued. He has adequate urine output. No indications for intervention otherwise than his current treatment plan. We will continue to monitor. 2. Recent fall followed by Primary and Orthopedics. 3. Bilateral pleural effusions. History of chronic obstructive pulmonary disease. Followed by Primary. Dictated by ALEJANDRA Chu for Hunter Iniguez MD Face to face encounter, data reviewed, discussed with Gabe Parks on 09/13/18. I agree with the above assessment and plan of care. cc: Hunter Iniguez MD [facility]
--- NOTE | 2018-09-13 12:38 | OPERATIVE NOTE ---
PROCEDURE DATE: DIAGNOSIS: Degenerative joint disease, left knee. PROCEDURE: Injection of Depo-Medrol into the left knee. PROVIDER: ALEJANDRA Hernandez SUPERVISING PHYSICIAN: Neno Teran MD ANESTHESIA: Local. COMPLICATIONS: Zero. PROCEDURE DESCRIPTION: The patient's left knee was prepped with Betadine and an 18-gauge needle was attached to a 12 mL syringe with 4 mL of lidocaine, 4 mL of Marcaine, and 80 mg of Depo- Medrol. Sterile technique was performed and injection of the left knee joint in the intra- articular space was performed on the lateral aspect of the knee. There was roughly 0.5 cc of blood from the site after injection. There were zero complications. The patient tolerated the procedure well. Dictated by ALEJANDRA Hernandez for Neno Teran MD cc: ALEJANDRA Hernandez MD
--- NOTE | 2018-09-13 14:43 | CARDIOLOGY PROGRESS NOTE ---
DATE: 09/13/2018 SUBJECTIVE: Mr. Ramirez reports he is doing better. He has had a steroid injection to his knee, and his pain in that area has been much better controlled. OBJECTIVE: He is afebrile. His heart rate today is 87 in atrial fibrillation. Overall, his heart rate seems to be slightly better over the last 12 hours or so. Blood pressure is 137/71. General: He is in no acute distress. Cardiovascular: He is in an irregularly irregular rhythm. He has no obvious murmurs. He has no S3. He has no lower extremity edema. His chest exam has very distant breath sounds. He has no increased work of breathing. He has mild dullness in the bases. Abdomen is soft, nontender. DIAGNOSTIC DATA: His echocardiogram suggests normal ejection fraction. His hematocrit is 28, platelet count 212. His sodium is 131, potassium 4.4, BUN is 40, creatinine 1.8. Notably, his albumin earlier in the hospitalization was 2.8. ProBNP is 3351. ASSESSMENT: Mr. Ramirez is a 73-year-old gentleman who presented with volume overload as well as significant pain complaints after a fall. PLAN: His renal function seems to have leveled off and is slightly improved compared to yesterday. He is hyponatremic. He may have some volume overload; however, his renal function has been somewhat limiting to this. Nephrology is following. I am unclear the exact reason for his chronic hypoalbuminemia which seems to have been ongoing over several checks. We did check an abdominal ultrasound this hospitalization which did not really show any significant liver abnormalities. His albumin over the last several checks has been in the high 2's to low 3's. We will continue to follow along. We may want to try to add in some slight diuresis over the next few days. cc: Abiodun Bustamante MD
--- NOTE | 2018-09-13 15:56 | PULMONOLOGY PROGRESS NOTE ---
DATE: 09/13/2018 SUBJECTIVE: The patient is awake, alert and conversant. He is eating lunch. OBJECTIVE: Blood pressure is 137/71, heart rate 87, respiratory rate 20, oxygen saturation 93% on nasal cannula. HEENT: Pupils are equal and reactive. Oropharynx is clear. Neck is supple. Chest reveals diminished breath sounds in both lung bases. Cardiac: S1, S2. Abdomen is obese and soft. Extremities reveal trace to plus 1 edema. DIAGNOSTIC DATA: Chest x-ray reveals vascular congestion, generous cardiac silhouette, effusion of left base. Arterial blood gas on 3 L per nasal cannula reveals a pH of 7.39, pCO2 of 44, pO2 of 86. IMPRESSION: A 73 year old with morbid obesity, untreated obstructive sleep apnea, acute hypoxemic respiratory failure, chronic atrial fibrillation, acute on chronic renal insufficiency, pleural effusions. He underwent a thoracentesis, and pleural fluid reveals no growth. Pleural fluid was likely transudative. RECOMMENDATIONS: 1. Continue to monitor intake and output. 2. Continue oxygen for acute hypoxemic respiratory failure, but I suspect he may require oxygen at discharge. 3. The patient has an untreated obstructive sleep apnea. It would be difficult to control his diastolic heart failure without treating his sleep apnea. He has failed CPAP in the past. I recommended that he reattempt CPAP and consider a SomnoDent. A tracheostomy might be of benefit, but he does not wish to pursue this route. cc: Caleb Petty MD
[2018-09-13] MEDS: ROCEPHIN 1 GM in NS 50 ML IV SCH (20:18)
[2018-09-13] MEDS ORDERED: ROCEPHIN ONE (20:19)
[2018-09-13] MEDS ORDERED: BASAGLAR SUBQ SCH (21:00)
[2018-09-14] MEDS: DUONEB (A & A) INH SCH ×7 (00:32→23:14)
[2018-09-14] MEDS ORDERED: HUMALOG SUBQ ONE (01:24)
[2018-09-14] MEDS ORDERED: HUMULIN R SUBQ SCH (01:26)
[2018-09-14 05:39] LABS: HEMOGLOBIN 9.1 g/dL (14.0-18.0); MCH 27.6 PG (27-31); MCHC 32.5 g/dL (33-37); MCV 84.8 FL (81-99); MPV 10.8 FL (7.4-10.4); RBC 3.3 XMIL (4.7-6.1); RDW 15.2 % (11.5-14.5)
[2018-09-14] MEDS: HUMULIN R SUBQ SCH ×4 (06:16→20:33)
[2018-09-14 06:18] LABS: CALCIUM 8.4 mg/dL (8.8-10.2); CREATININE 1.8 mg/dL (0.7-1.2); POTASSIUM 4.6 mmol/L (3.5-5.1)
[2018-09-14] MEDS: ASPIRIN PO SCH (09:08)
[2018-09-14] MEDS: COLACE PO SCH (09:08)
[2018-09-14] MEDS: CARDIZEM PO SCH ×3 (09:08→20:34)
[2018-09-14] MEDS: LOPRESSOR PO SCH ×2 (09:08→20:34)
[2018-09-14] MEDS: BASAGLAR SUBQ SCH ×2 (09:08→17:19)
[2018-09-14] MEDS: MORPHINE IV PRN ×2 (09:58→20:34)
--- NOTE | 2018-09-14 11:05 | NEPHROLOGY PROGRESS NOTE ---
DATE: 09/14/2018 SUBJECTIVE: Patient lying flat in the bed asleep. He appears in no distress. OBJECTIVE: Vital Signs: Temperature 98.3, pulse 96, respiratory rate 18, blood pressure 149/66. Intake 70 mL. Output 1.1 L. General: Elderly gentleman resting in bed. No acute distress. HEENT: Normocephalic, atraumatic. His oral mucosa appears dry. He is sleeping with his mouth open. Cardiovascular: Regular rate and rhythm. Pulmonary: He has no increased work of breathing. No rales or rhonchi. Abdomen: Obese, soft, positive bowel sounds. : Continues to void. Extremities: Trace edema. Integumentary: Skin is warm and dry. LAB DATA: WBC of 6.0, hemoglobin 9.1. Sodium 128, potassium 4.6, CO2 of 23, creatinine 1.8. ASSESSMENT AND PLAN: 1. Acute on chronic kidney disease with overlying acute tubular necrosis secondary to contrast and nonsteroidals. His renal function is stable overnight. He has adequate urine output. No indications for intervention otherwise. 2. Bilateral pleural effusion with hypoxemic respiratory failure. He is followed by pulmonology. Dictated by ALEJANDRA Chu for Hunter Iniguez MD cc: Hunter Iniguez MD
[2018-09-14] MEDS ORDERED: SAMSCA PO ONE (12:38)
[2018-09-14] MEDS ORDERED: HUMULIN R IV ONE ×2 (12:46→18:33)
--- NOTE | 2018-09-14 13:13 | PROGRESS NOTE ---
DATE: 09/14/2018 SUBJECTIVE: The patient has no major complaints. His knee pain is better. Breathing is a bit better. OBJECTIVE: Vital Signs: Blood pressure 133/71, heart rate of 84, respiratory rate 18, temperature 97.6 degrees, 100% on 3 L. Cardiovascular: Regular rate and rhythm. Pulmonary: Bilateral breath sounds. Clear to auscultation. GI: Soft, nontender, nondistended. Bowel sounds were positive. LABORATORY DATA: White count 6, hemoglobin and hematocrit 9 and 28, platelets 232,000. Sodium 128, but his sugar was 428. The most recent check, which was just within the last 5 minutes, is 437. BUN and creatinine are 54 and 1.8. PROBLEM LIST: Today, as far as medical issues: 1. Hyperglycemia, type 2 diabetes. He was on daily Lantus, which with his kidney failure, adjusted down to once a day, but he is still very hyperglycemic, in the 400-range, so I am going to put him back on his dose because he really has not been controlled, and it is worse today. I agree with Dr. Figueroa, we may have to adjust his dose accordingly because of his kidney dysfunction, but right now it is really not controlled. We will adjust it down to 40 b.i.d. I have increased his sliding scale intensity to high. He also gets regular insulin 20 units b.i.d., which I am going to hold for now, just so he does not get extra insulin in addition to his sliding scale. 2. Atrial fibrillation. It has been stable. Cardiology is following. 3. Chronic obstructive pulmonary disease. We will continue breathing treatments. 4. Bilateral pleural effusion, with hypoxic respiratory failure. He is off diuretics now because of acute kidney injury. Micro has been negative, but he is on antibiotics, particularly Rocephin. 5. Acute kidney injury is not much improved. Nephrology is following. Holding nephrotoxic drugs. We will continue to monitor. 6. Disposition pending his clinical status. We will continue to monitor his labs. 7. Hyponatremia I think is probably unchanged, if you correct for his hyperglycemia. 8. Significant arthritis of the knee. He has improved with orthopedic injections. Some of the hyperglycemia may be related to that, although typically not much is absorbed systemically. cc: Darrian Orosco MD
--- NOTE | 2018-09-14 15:31 | CARDIOLOGY PROGRESS NOTE ---
DATE: 09/14/2018 CHIEF COMPLAINT: Pain in the knee, pain in the ribcage. SUBJECTIVE: Mr. Ramirez is generally feeling better today. He is breathing more comfortably. His pain is subsiding. OBJECTIVE: Temperature is 97.6, pulse 84, respirations 18, blood pressure 133/71. Awake, alert, oriented, no distress. Appears to be chronically ill. HEENT is unremarkable. Chest: Diminished breath sounds diffusely. Heart sounds are irregularly irregular with a systolic murmur of the aortic area. Abdomen is obese, nontender. Extremities showed trace brawny edema. Neurologic: Follows commands. Moves all 4 extremities. DIAGNOSTIC DATA: Blood work shows his chemistry today with glucose 437, BUN is 54, creatinine 1.8, sodium 128, potassium 4.6. ProBNP is 4114. IMPRESSION: 1. The patient presented with a fall and hurting in the knee and the ribcage. 2. Congestive heart failure and pulmonary edema, probably a combination of systolic and diastolic dysfunction. 3. History of coronary heart disease. 4. Previous stents. 5. Permanent atrial fibrillation. 6. Acute renal failure, probably precipitated by use of intravenous contrast in the face of heart failure and chronic kidney disease with diabetes mellitus. RECOMMENDATIONS: From a Cardiology viewpoint, we will probably suggest a dose of Samsca to try to correct the low sodium. Part of that could be dilutional or pseudohyponatremia because of the high blood sugar. At any rate, the patient's cardiac status in general seems to be stable. We will follow him. cc: Andrés Irene MD
--- NOTE | 2018-09-14 16:43 | PULMONOLOGY PROGRESS NOTE ---
DATE: 09/14/2018 SUBJECTIVE: The patient reports that he feels better. He does believe he will be ready for rehab soon. He reports his knee is better following the steroid injections. OBJECTIVE: Vital signs: The patient has been afebrile for the last 24 hours. Blood pressure 133/71, heart rate 84, respiratory rate 18 and oxygen saturation 100% on 3 L per nasal cannula. HEENT: Pupils are equal and reactive. Oropharynx is clear. Neck: Supple. Chest: Prolonged expiratory phase with decreased breath sounds in the lung bases. Cardiac: S1, S2. Abdomen: Obese and soft. Extremities: Trace to +1 edema. LABORATORY: Sodium 128, potassium 4.6, chloride 93, bicarbonate 23, BUN 54, creatinine 1.8, glucose 428. ProBNP 4,114. IMPRESSION: 73-year-old with morbid obesity, chronic pleural effusions which were exudative on evaluation, untreated obstructive sleep apnea, chronic atrial fibrillation, acute hypoxemic respiratory failure, contrast-induced [id number] renal insufficiency, status post steroid injection for knee injury which has led to hyperglycemia with mild to moderate hyponatremia. RECOMMENDATIONS: 1. Attempt to balance intake and output if possible. 2. Continue oxygen for acute hypoxemic respiratory failure. The patient will likely need oxygen at the time of discharge. 3. Recommend reevaluation for obstructive sleep apnea. He will have difficulty with fluid management, and his prognosis will improve with treatment of his sleep apnea. 4. MCFP, the patient would benefit from a 100 pound weight loss. cc: Caleb Petty MD
[2018-09-14] MEDS: ROCEPHIN 1 GM in NS 50 ML IV SCH (20:33)
[2018-09-14] MEDS: LIPITOR PO SCH (20:34)
[2018-09-14] MEDS ORDERED: BASAGLAR SUBQ SCH (21:00)
[2018-09-15] MEDS ORDERED: HUMALOG SUBQ ONE ×2 (01:28→23:25)
[2018-09-15] MEDS: DUONEB (A & A) INH SCH ×6 (03:34→23:17)
[2018-09-15 05:20] LABS: HEMATOCRIT 28.6 % (42.0-52.0); HEMOGLOBIN 9.3 g/dL (14.0-18.0); MCH 27.4 PG (27-31); MCHC 32.5 g/dL (33-37); MCV 84.4 FL (81-99); MPV 10.4 FL (7.4-10.4); RBC 3.39 XMIL (4.7-6.1); WBC 9.55 X1000 (4.8-10.8)
[2018-09-15 05:58] LABS: CALCIUM 8.6 mg/dL (8.8-10.2); CREATININE 1.4 mg/dL (0.7-1.2); POTASSIUM 4.3 mmol/L (3.5-5.1)
[2018-09-15] MEDS: HUMULIN R SUBQ SCH ×4 (06:17→20:58)
[2018-09-15] MEDS: ULTRAM PO PRN (08:11)
[2018-09-15] MEDS: MORPHINE IV PRN ×2 (08:12→23:00)
--- NOTE | 2018-09-15 08:44 | Diag Imaging Result Doc PS360 ---
EXAM: CHEST-2 VIEWS - 09/15/2018 HISTORY: effusion TECHNIQUE: Chest two views COMPARISON: Portable chest of 09/13/2018 FINDINGS: There are bilateral interstitial opacities which appear to decreased mildly. There is a left pleural effusion which appears of decreased mildly. There is no pneumothorax identified. There is mild cardiomegaly. IMPRESSION: Mild decrease in interstitial opacities and left pleural effusion compared to prior. Electronically signed by Fernando Cisneros 09/15/2018 8:41 AM
[2018-09-15] MEDS: CARDIZEM PO SCH ×3 (09:00→20:41)
[2018-09-15] MEDS ORDERED: ASPIRIN PO SCH (09:00)
[2018-09-15] MEDS: LOPRESSOR PO SCH ×2 (09:00→20:42)
[2018-09-15] MEDS: NEURONTIN PO SCH (09:00)
[2018-09-15] MEDS: ASPIRIN PO SCH (09:00)
[2018-09-15] MEDS: COLACE PO SCH (09:00)
[2018-09-15] MEDS ORDERED: INSULIN PEN NEEDLES ONE (09:09)
[2018-09-15] MEDS: BASAGLAR SUBQ SCH ×2 (09:10→20:41)
--- NOTE | 2018-09-15 10:04 | PROGRESS NOTE ---
DATE: 09/15/2018 SUBJECTIVE: Patient is still complaining of left lower knee pain. He is not complaining of shortness of breath or chest pain or headache at this moment. Blood sugar a little bit better controlled, down from 428 to 265. I will continue with Lantus twice a day and I will monitor this closely. A couple of days ago, he received apparently a shot of steroids inside his knee and that probably increase the glucose in blood. Sodium better compared with yesterday from 128 to 134. OBJECTIVE: Vital Signs: Temperature 98 degrees, pulse 90, respiratory rate 20, blood pressure 128/68. Oxygen saturation 92 on 3 L of nasal cannula. HEENT: Head normocephalic. No trauma. PERRLA. Neck: Supple. No JVD. No masses. Central trachea. Chest: Decreased breath sounds mostly at the bases with some scattered rales and rhonchi. Abdomen: Soft. Nontender. Nondistended. No hepatosplenomegaly. Extremities: 3+ lower extremity edema. No clubbing. No cyanosis. Neurological: Alert and oriented x3. No focal deficits. LABORATORY: WBC 9.5, hemoglobin 9.3, hematocrit 28.6, platelets 263,000. Sodium 134, potassium 4.3, chloride 96, bicarbonate 23, BUN 59, creatinine 1.4, glucose 265, calcium 8.6. ASSESSMENT AND PLAN: 1. Bilateral pleural effusion with hypoxemic respiratory failure, status post thoracentesis on the right side. He was getting diuretics, which have been stopped because of his acute on chronic kidney injury. Nephrology Department following this patient as well as Pulmonary Department. We will avoid any kind of nephrotoxic medications. 2. Atrial fibrillation with RVR. Heart rate has been stable. Continue with same management. Cardiology on board. 3. Hyponatremia, likely pseudohyponatremia. Today the sodium is much better. Continue to monitor. 4. History of COPD, not in exacerbation. Continue breathing treatment. 5. History of coronary artery disease. No chest pain. 6. Morbid obesity with a body mass index around 40, aware. 7. Left knee injury due to recent trauma. Orthopedic Surgery on board. He needs to use a knee brace and he will follow up Orthopedic Surgery as an outpatient. I do believe he already received a steroid shot inside the knee. 8. History of severe gastrointestinal bleed. He had an EGD done 08/24/2018 that showed gastritis. He is not complaining of abdominal pain or burning sensation in his stomach at this moment. Apparently, he also had a capsule endoscopy done at the [facility] and they did not identify any source of bleeding. The bleed was so severe that he received at least 11 PRBCs. 9. Type 2 diabetes. We have placed this patient back on his home dose of Lantus because his blood sugar has been elevated. Actually at home he is using 45 units and here in the hospital 40 twice a day. We will monitor. Blood sugar is better compared with yesterday. 10. Acute on chronic kidney disease. Nephrology following. We will avoid nephrotoxic medications. The urine output has been stable. cc: Baron Cisneros MD
[2018-09-15] MEDS: LANOXIN PO SCH (10:20)
--- NOTE | 2018-09-15 10:37 | CARDIOLOGY PROGRESS NOTE ---
DATE: 09/15/2018 CHIEF COMPLAINT: Irregular heart beat, chest cage pain. SUBJECTIVE: Mr. Ramirez continues to improve. A chest x-ray was done today that shows mild decrease in interstitial opacities and left pleural effusion compared to prior. OBJECTIVE: Heart rate is still borderline controlled. This morning, heart rate is 93, blood pressure 128/68, temperature is 98 degrees, respirations 18. He is awake, alert, follows commands. He seems to be comfortable. HEENT is unremarkable. Chest shows diminished breath sounds at bases. Heart sounds are irregularly irregular. Abdomen is obese. Extremities showed no significant edema. Neurologic: Follows commands, moves all 4 extremities. DIAGNOSTIC DATA: Blood work shows hemoglobin is 9.3, hematocrit 28.6, white cell count is 9450. Sodium is 134, potassium 4.3, BUN is 59, creatinine 1.4. IMPRESSION: 1. The patient has persistent atrial fibrillation. 2. Rib cage pain, noncardiac chest pain. 3. History of coronary heart disease and previous coronary stents. 4. Congestive heart failure, systolic and diastolic, which is improving. 5. Acute on chronic renal dysfunction. RECOMMENDATIONS: I will add a low dose digoxin to his regimen. We will also go ahead and get him started on long acting diltiazem tomorrow probably at a dose of 240 mg daily, and then we will take it from there. cc: Andrés Irene MD
--- NOTE | 2018-09-15 13:53 | NEPHROLOGY PROGRESS NOTE ---
DATE: 09/15/2018 SUBJECTIVE: Patient is sitting up on the side of the bed. He states he is feeling much better and he hopes to go home or to rehab in the next day or so. OBJECTIVE: Vital Signs: Temperature 96 degrees, pulse 93, respiratory rate 18, blood pressure 128/68. General: This is an elderly gentleman sitting up on the side of the bed. He is awake, alert, no acute distress. HEENT: Normocephalic, atraumatic. MAKEDA. Oral mucosa moist. Neck: Supple. Cardiovascular: Regular rate and rhythm. Pulmonary: He has decreased breath sounds to the bases. Abdomen: Obese, soft, positive bowel sounds. : He is now voiding. Extremities: He has trace lower extremity edema. He has vascular changes noted. Integumentary: Skin is warm and dry. LABORATORY DATA: Creatinine today is 1.4 (1.8). INPUT AND OUTPUT: Intake not measured. Output 250 mL. He is voiding. ASSESSMENT AND PLAN: 1. Acute on chronic kidney disease. Overlying acute tubular necrosis. Renal function continues to improve. No intervention otherwise. 2. Electrolytes, acid-base balance. Apparently, he was dosed with Samsca. No objections. His sodium yesterday was 128, today is 134. 3. Hypoxemic respiratory failure, improving, followed by Pulmonology. Dictated by ALEJANDRA Chu for Hunter Iniguez MD cc: Hunter Iniguez MD
[2018-09-15] MEDS ORDERED: TUMS PO ONE (15:43)
[2018-09-15] MEDS: ROCEPHIN 1 GM in NS 50 ML IV SCH (20:42)
[2018-09-15] MEDS: LIPITOR PO SCH (20:42)
[2018-09-15] MEDS: PRILOSEC PO SCH (20:42)
[2018-09-16] MEDS: DUONEB (A & A) INH SCH ×6 (02:58→23:32)
[2018-09-16 05:38] LABS: HEMATOCRIT 30.9 % (42.0-52.0); HEMOGLOBIN 9.8 g/dL (14.0-18.0); MCH 27.5 PG (27-31); MCHC 31.7 g/dL (33-37); MCV 86.8 FL (81-99); MPV 10.3 FL (7.4-10.4); RBC 3.56 XMIL (4.7-6.1); RDW 15.5 % (11.5-14.5); WBC 8.48 X1000 (4.8-10.8)
[2018-09-16] MEDS: HUMULIN R SUBQ SCH ×5 (06:00→20:01)
[2018-09-16] MEDS: PRILOSEC PO SCH ×3 (06:00→20:02)
[2018-09-16 06:23] LABS: ALBUMIN 2.7 g/dL (3.5-5.0); CALCIUM 9.2 mg/dL (8.8-10.2); CREATININE 1.4 mg/dL (0.7-1.2); PHOSPHORUS 3.2 mg/dL (2.7-4.5); POTASSIUM 4.5 mmol/L (3.5-5.1)
[2018-09-16] MEDS: NEURONTIN PO SCH (08:23)
[2018-09-16] MEDS: LOPRESSOR PO SCH ×3 (08:23→20:02)
[2018-09-16] MEDS: ASPIRIN PO SCH (08:23)
[2018-09-16] MEDS: CARDIZEM PO SCH ×2 (08:23→16:04)
[2018-09-16] MEDS: BASAGLAR SUBQ SCH ×3 (08:23→20:01)
[2018-09-16] MEDS: LANOXIN PO SCH (08:23)
[2018-09-16] MEDS: COLACE PO SCH (08:23)
--- NOTE | 2018-09-16 08:31 | PROGRESS NOTE ---
DATE: 09/16/2018 SUBJECTIVE: I think this patient is doing better. He is still complaining of cough left lower knee pain. His blood sugar is still uncontrolled. I have increased the dose of Lantus to 55 units twice a day, since his kidney function is getting better, and I will monitor. Sodium level is normal today. He states that he is breathing better. No chest pain. OBJECTIVE: Vital Signs: Temperature 98.1, pulse 82, respiratory rate 18, blood pressure 154/77, oxygen saturation 95% on 3 L of nasal cannula. HEENT: Head normocephalic. No trauma. PERRLA. Neck: Supple. No JVD. No masses. Central trachea. Chest: Decreased breath sounds, mostly at the bases with some scattered rhonchi bilaterally and mild rales. Abdomen: Soft, nontender, nondistended. No hepatosplenomegaly. Extremities: 3+ lower extremity edema. No clubbing. No cyanosis. Neurological: The patient is alert and oriented x3. No focal deficits. Cardiovascular: Irregularly, irregular rate and rhythm. LABORATORY: WBC 8.4, hemoglobin 9.8, hematocrit 30.9, platelets 278,000. Sodium 140, potassium 4.5, chloride 102, bicarbonate 28, BUN 55, creatinine 1.4, glucose 297, calcium 9.2, albumin 2.7. ASSESSMENT AND PLAN: 1. Bilateral pleural effusion with hypoxemic respiratory failure, status post thoracentesis on the right side. He was getting diuretics which has been stopped because of acute on chronic kidney injury. Nephrology Department following this patient. The kidney function is getting better. We will avoid any kind of nephrotoxic medications now. Coma he still has some fluid overload. 2. Atrial fibrillation with rapid ventricular response. He is still on atrial fibrillation, rate controlled. Cardiology on board. 3. Hyponatremia, resolved. 4. History of chronic obstructive pulmonary disease not in exacerbation. Continue with breathing treatment. 5. History of coronary artery disease. No chest pain at this moment. 6. Morbid obesity with a body mass index around 40, aware. 7. Left knee injury due to recent trauma. Orthopedic Surgery on board. He needs to use a knee brace and follow up with Orthopedic Surgery as an outpatient. I do believe he already received a steroid shot inside the left knee. 8. History of severe gastrointestinal bleed. Apparently, he received at that time 11 packed red blood cells. Esophagogastroduodenoscopy was done recently on 08/24/2018 that showed gastritis. He is not complaining of abdominal pain or burning sensation on his stomach at this moment. Apparently, he also had a capsule endoscopy done at [facility], and they did not identify any source of bleeding. 9. Type 2 diabetes. Blood sugar is still elevated. I have increased the dose of Lantus from to 55 units twice a day. We will monitor. 10. Acute on chronic kidney disease. Nephrology Department on board. His urine output has been stable. Creatinine is stable around the same compared with yesterday. We have a negative balance of 2.2 liters. cc: Baron Cisneros MD
[2018-09-16] MEDS ORDERED: BASAGLAR SUBQ SCH (09:00)
--- NOTE | 2018-09-16 10:13 | NEPHROLOGY PROGRESS NOTE ---
DATE: 09/16/2018 SUBJECTIVE: He is feeling well overall. He states he had a hard night and slept poorly. No other new symptoms. No shortness of breath, nausea, or vomiting. He is still having musculoskeletal pain. OBJECTIVE: Vital Signs: Blood pressure 158/77, heart rate 94, respirations 16, afebrile. General: He is in no acute distress. Skin: Warm and dry. HEENT: Conjunctivae are pink. Neck: Neck veins are not distended. Heart: Regular. No gallops. Lungs: Equal. No crackles or wheezes. Abdomen: Soft and nontender. Bowel sounds are present. Extremities: Have trace edema. No clubbing or cyanosis. IMPRESSION: Acute kidney injury. Presumably secondary to IV contrast. Baseline creatinine 1.2. Recovering. Electrolytes and acid-base are in target. Nothing further to add so I will sign off. If I can be of further assistance, please do not hesitate to call. cc: Hunter Iniguez MD
--- NOTE | 2018-09-16 11:52 | EKG Report ---
Test Performed on : 09/16/2018 11:27:37 AM Test Reason : afib Blood Pressure : / mmHG Vent. Rate : 096 BPM Atrial Rate : 049 BPM P-R Int : 000 ms QRS Dur : 102 ms QT Int : 376 ms P-R-T Axes : 000 -01 -23 degrees QTc Int : 475 ms Atrial fibrillation. with premature ventricular or aberrantly conducted complexes. Low voltage QRS Cannot rule out Inferior infarct , age undetermined Abnormal ECG When compared with ECG of 13-SEP-2018 07:12, Minimal criteria for Anterior infarct are no longer present Inverted T waves have replaced nonspecific T wave abnormality in Inferior leads Confirmed by Mendoza SOLIMAN, Quentin Roper ([id number]) on 09/17/2018 5:08:31 PM
[2018-09-16] MEDS: MORPHINE IV PRN ×2 (13:25→19:49)
[2018-09-16] MEDS ORDERED: BUMEX PO SCH (16:15)
[2018-09-16] MEDS: LASIX IV SCH (17:29)
[2018-09-16] MEDS: LIPITOR PO SCH ×2 (19:49→20:02)
[2018-09-16] MEDS: ROCEPHIN 1 GM in NS 50 ML IV SCH ×2 (19:51→20:01)
[2018-09-16] MEDS: ULTRAM PO PRN (22:57)
[2018-09-17] MEDS: MORPHINE IV PRN ×2 (00:52→18:55)
[2018-09-17] MEDS: DUONEB (A & A) INH SCH ×6 (03:32→23:13)
[2018-09-17] MEDS: LASIX IV SCH ×2 (03:51→16:22)
[2018-09-17 05:32] LABS: HEMATOCRIT 32.2 % (42.0-52.0); HEMOGLOBIN 10.2 g/dL (14.0-18.0); MCH 27.2 PG (27-31); MCHC 31.7 g/dL (33-37); MCV 85.9 FL (81-99); MPV 9.9 FL (7.4-10.4); RBC 3.75 XMIL (4.7-6.1); RDW 15.6 % (11.5-14.5); WBC 7.55 X1000 (4.8-10.8)
[2018-09-17 05:53] LABS: ALBUMIN 2.8 g/dL (3.5-5.0); CALCIUM 8.5 mg/dL (8.8-10.2); CREATININE 1.3 mg/dL (0.7-1.2); PHOSPHORUS 3.1 mg/dL (2.7-4.5); POTASSIUM 3.9 mmol/L (3.5-5.1)
[2018-09-17] MEDS: PRILOSEC PO SCH ×2 (06:17→20:05)
[2018-09-17] MEDS: HUMULIN R SUBQ SCH ×4 (06:21→20:06)
[2018-09-17] MEDS ORDERED: LOPRESSOR PO SCH (09:00)
[2018-09-17] MEDS ORDERED: INSULIN PEN NEEDLES ONE ×2 (09:12→20:02)
[2018-09-17] MEDS: LANOXIN PO SCH (09:17)
[2018-09-17] MEDS: BASAGLAR SUBQ SCH ×2 (09:17→20:06)
[2018-09-17] MEDS: ASPIRIN PO SCH (09:17)
[2018-09-17] MEDS: NEURONTIN PO SCH (09:17)
[2018-09-17] MEDS: COLACE PO SCH (09:17)
[2018-09-17] MEDS: ULTRAM PO PRN ×2 (09:18→17:35)
[2018-09-17] MEDS: CARDIZEM CD PO SCH (09:18)
--- NOTE | 2018-09-17 10:56 | PROGRESS NOTE ---
DATE: 09/17/2018 SUBJECTIVE: Patient reports breathing better. He reports that he is able to walk with assistance with a walker onto the bathroom, but he has not tried to walk with assistance in the hallways yet. He denies any other complaints. OBJECTIVE: Vital Signs: Temperature 97.4 degrees, heart rate 112, respiratory rate 14, blood pressure 149/93, O2 saturation 93% on room air. General examination: This is a chronically ill- looking, 73-year-old male, lying in bed in no acute distress. HEENT: Head is normocephalic, atraumatic. Neck: No JVD noted. No carotid bruits. No lymphadenopathy. No thyromegaly. Cardiovascular exam: S1, S2 heard. Irregularly irregular. Tachycardic. No murmurs, gallops, or rubs. Respiratory exam: Decreased breath sounds globally mostly at the bases, but there are some scattered crackles and rhonchi. The patient is not using any accessory muscles or having work of breathing. Abdomen: Soft, nontender to palpation. Nondistended. Bowel sounds present. No organomegaly. Extremities: 3+ pedal edema in both lower extremities. No clubbing or cyanosis noted. Peripheral pulses present in both legs. Neurological exam: Patient is alert and oriented x3. Moves 4 extremities. LABORATORY DATA: White cell count 7.55, hemoglobin 10.2, hematocrit 32.2, platelets 269 with creatinine 1.3, basal glucose 122 and no BMP from today. ASSESSMENT AND PLAN: 1. Acute hypoxemic respiratory failure secondary to bilateral pleural effusion status post thoracentesis on the right side. Clinically, this patient is doing good. Because the renal function is stable and almost back to normal, he has been started on diuretics. Again in this case, Lasix 40 mg intravenous every 12 hours. As per Cardiology, we will continue with the same management. 2. Acute kidney injury, resolved. 3. Atrial fibrillation with rapid ventricular response. The heart rate during the last 24 hours has been in the range of 90s, almost 120s. Considering that the blood pressure is between 140s and 150s, I prefer to increase the doses of metoprolol from 50 mg oral twice daily to 50 mg oral three times per day. I will continue to monitor this patient closely. 4. Hyponatremia, resolved. 5. Chronic obstructive pulmonary disease. The patient is not on any exacerbation. We will provide breathing treatments as needed. 6. Coronary artery disease, stable. No chest pain reported. We will continue with home medications. 7. Morbid obesity with body mass index around 40, aware. 8. Left knee injury due to recent trauma. The patient has been evaluated by Orthopedics. At this time, the recommendation is to use a brace and follow with them upon discharge. 9. History of gastrointestinal bleeding. At this point, hemoglobin is stable. No signs of overt bleeding. We will continue with the same management. 10. Diabetes mellitus type 2. The patient has increased his Lantus to 50 units twice daily, and blood sugars are definitely much better. We will continue with the same doses. 11. Acute on chronic kidney disease. Creatinine baseline is 1.2 and today is 1.3. Will monitor 12. Physical deconditioning. Patient reports that he lives alone and he feels very weak. So, physical therapy is working with this patient. We will follow recommendations. If this patient needs to go to rehabilitation facility which this patient will like, but also if there is any possibility that he can go home with home health, that will be his first option. We will contact addiction social worker and we will go from there. cc: Vlad Pearson MD MTDD
[2018-09-17] MEDS ORDERED: MORPHINE IV PRN (11:15)
[2018-09-17] MEDS: LOPRESSOR PO SCH ×2 (16:22→20:05)
[2018-09-17] MEDS: LIPITOR PO SCH (20:05)
[2018-09-17] MEDS: ROCEPHIN 1 GM in NS 50 ML IV SCH (20:06)
--- NOTE | 2018-09-17 20:40 | PULMONOLOGY PROGRESS NOTE ---
DATE: 09/17/2018 SUBJECTIVE: The patient is awake, alert and conversant. He reports good urine output following Lasix today. Overall he reports he is feeling better but continues to have left leg knee pain. OBJECTIVE: Vital Signs: Blood pressure 114/65, heart rate 97, respiration rate 18, oxygen saturation 96% on room air. HEENT: Pupils are equal and reactive. Oropharynx is clear. Neck: Supple. Chest: Reveals prolonged expiratory phase with crackles in the lung bases. Cardiac: S1 and S2. Abdomen: Obese and soft. Extremities: Reveal 1+ edema of the feet and ankles. LABORATORIES: White blood count 7.55, hemoglobin 10.2, platelet count 269,000. Chemistries: Sodium 139, potassium 3.9, chloride 101, bicarbonate 26, BUN 44, creatinine 1.3, glucose 122. IMPRESSION: A 73-year-old with morbid obesity, chronic pleural effusions which have been exudative on evaluation, untreated sleep apnea, chronic atrial fibrillation, acute hypoxemic respiratory failure and contrast-induced acute on chronic renal failure, with left knee pain. Clinically he is improving but continues to have knee pain. His renal failure is resolving, and his urine output appears to be improving. RECOMMENDATIONS: 1. Agree with reinitiation of diuretics, as you are doing. 2. Anticipate the need for oxygen at discharge 3. Recommend the patient be reevaluated for his obstructive sleep apnea. He is not likely to do well if this remains untreated. Other options besides a CPAP device include a jaw advancement device, surgery, and tracheostomy. 4. long-term, it is recommended that the patient lose a significant amount of weight. 5. Followup chest x-ray tomorrow morning. cc: Caleb Petty MD
[2018-09-18] MEDS: DUONEB (A & A) INH SCH ×5 (03:17→19:25)
[2018-09-18] MEDS: MORPHINE IV PRN ×3 (03:21→21:35)
[2018-09-18] MEDS: LASIX IV SCH ×2 (03:21→17:02)
[2018-09-18 05:38] LABS: MPV 10.4 FL (7.4-10.4); RBC 3.84 XMIL (4.7-6.1)
[2018-09-18] MEDS: HUMULIN R SUBQ SCH ×4 (06:03→21:36)
[2018-09-18] MEDS: PRILOSEC PO SCH ×2 (06:09→20:11)
[2018-09-18 06:27] LABS: HEMOGLOBIN 10.6 g/dL (14.0-18.0); MCH 27.6 PG (27-31); MCHC 32.1 g/dL (33-37); MCV 85.9 FL (81-99); RDW 15.8 % (11.5-14.5); WBC 7.64 X1000 (4.8-10.8)
[2018-09-18 06:31] LABS: ALBUMIN 2.7 g/dL (3.5-5.0); CREATININE 1.2 mg/dL (0.7-1.2); PHOSPHORUS 3.5 mg/dL (2.7-4.5); POTASSIUM 3.6 mmol/L (3.5-5.1)
--- NOTE | 2018-09-18 08:38 | Diag Imaging Result Doc PS360 ---
CHEST-2 VIEWS - 09/18/2018 INDICATION: pulmonary edema COMPARISON: 09/15/2018 FINDINGS: Stable cardiomegaly and pulmonary vascular congestion. Stable small left pleural effusion. Stable hazy interstitial pulmonary edema. IMPRESSION: No change from prior. Electronically signed by Prashanth Valerio 09/18/2018 8:36 AM
[2018-09-18] MEDS: CARDIZEM CD PO SCH (08:51)
[2018-09-18] MEDS: NEURONTIN PO SCH (08:51)
[2018-09-18] MEDS: LOPRESSOR PO SCH ×3 (08:51→22:13)
[2018-09-18] MEDS: ASPIRIN PO SCH (08:51)
[2018-09-18] MEDS: LANOXIN PO SCH (08:52)
[2018-09-18] MEDS: BASAGLAR SUBQ SCH ×2 (08:52→20:12)
[2018-09-18] MEDS: COLACE PO SCH (08:52)
--- NOTE | 2018-09-18 11:12 | PROGRESS NOTE ---
DATE: 09/18/2018 SUBJECTIVE: Patient reports feeling fine. He is requiring 3 L of oxygen by nasal cannula. Denies any difficulty in breathing. He reports not being able to walk into the hallways, just to the bathroom with assistance. He denies any other complaints. OBJECTIVE: Vital Signs: Temperature 97.5 degrees, heart rate 78, respiratory rate 18, blood pressure 188/92 and O2 saturation 96% on 3 L nasal cannula. General Examination: As mentioned, this is a chronically ill-looking, 73-year-old male, lying in bed in no acute distress. HEENT: Head is normocephalic, atraumatic. Neck: No JVD noted. Cardiovascular Exam: S1, S2 heard. Irregularly irregular. Tachycardic. No murmurs, gallops, or rubs. Respiratory Exam: Decreased breath sounds globally, mostly at both bases. There is still some scattered crackles and rhonchi better in comparing with yesterday. Patient is not using any accessory muscles or having work of breathing. Abdomen: Soft, nontender to palpation. Nondistended. Bowel sounds present. No organomegaly. Extremities: 2+ pitting edema in both lower extremities. No clubbing or cyanosis noted. Peripheral pulses present in both legs. Neurological Exam: Patient alert and oriented x3. Moves 4 extremities. LABORATORY DATA: White cell count 7.64, hemoglobin 10.6, hematocrit 33.0, platelets 269 with BMP that shows normal renal function with a glucose 94. ASSESSMENT/PLAN: 1. Acute hypoxemic respiratory failure secondary to bilateral pleural effusion status post thoracentesis in the right side. Clinically, this patient is doing fine. The x-ray from today showed stable small left pleural effusion with stable interstitial pulmonary edema. We have restarted Lasix from yesterday 40 mg intravenous every 12 hours. I think we need to continue with this medication. 2. Atrial fibrillation with rapid ventricular response. Heart rate is much better controlled after we increased the doses of metoprolol from 50 mg oral twice daily to three times per day. At this point, we will continue with the same management. 3. Hypertension. Blood pressure this morning and the previous reading was 180 and 160. So, at this point I am going to add amlodipine to his current treatment and we will see how he does. 4. Chronic obstructive pulmonary disease. The patient is not on any exacerbation. We will continue to monitor this patient closely. 5. Coronary artery disease is stable. No chest pain reported. 6. Morbid obesity with body mass index around 40, aware. It is very important for this patient to treat. Also, obstructive sleep apnea as per Pulmonary recommendations. 7. Left knee injury due to recent trauma. The patient is using a brace and they will see Orthopedics at discharge. 8. History of gastrointestinal bleeding. Stable. 9. Diabetes mellitus type 2. After we have made changes to his Lantus, the blood sugars are much better controlled. We will continue with the same management. 10. Acute on chronic kidney disease. Creatinine is at baseline. We will continue to monitor. 11. Physical deconditioning. At this point, the patient is aware that he needs to go to a rehabilitation facility. The patient agreed with the plan because he lives alone and he does not have anybody who can help him. At this point, we are going to inform manager social about it, and we will await for a rehabilitation bed. I think at this point he is medically stable. DISPOSITION: I think this patient is stable enough to be transferred to a regular floor. cc: Vlad Pearson MD MTDD
[2018-09-18] MEDS: NORVASC PO SCH ×2 (11:21→20:12)
[2018-09-18] MEDS: LIPITOR PO SCH (20:11)
[2018-09-18] MEDS: ROCEPHIN 1 GM in NS 50 ML IV SCH (20:12)
[2018-09-19] MEDS: MORPHINE IV PRN ×6 (01:16→23:19)
[2018-09-19] MEDS: LASIX IV SCH ×2 (03:56→16:46)
[2018-09-19] MEDS: DUONEB (A & A) INH SCH ×7 (04:00→23:03)
[2018-09-19] MEDS: HUMULIN R SUBQ SCH ×4 (06:04→21:02)
[2018-09-19] MEDS: PRILOSEC PO SCH ×2 (06:23→20:55)
[2018-09-19 07:42] LABS: HEMOGLOBIN 10.6 g/dL (14.0-18.0); MCH 27.7 PG (27-31); MCHC 32.1 g/dL (33-37); MCV 86.4 FL (81-99); MPV 9.7 FL (7.4-10.4); RBC 3.82 XMIL (4.7-6.1)
[2018-09-19 08:06] LABS: ALBUMIN 2.7 g/dL (3.5-5.0); CALCIUM 8.3 mg/dL (8.8-10.2); CREATININE 1.3 mg/dL (0.7-1.2); PHOSPHORUS 3.5 mg/dL (2.7-4.5); POTASSIUM 3.9 mmol/L (3.5-5.1)
--- NOTE | 2018-09-19 08:24 | PULMONOLOGY PROGRESS NOTE ---
DATE: 09/18/2018 SUBJECTIVE: The patient reports he has had a good day. His breathing continues to improve. His knee is marginally improved. OBJECTIVE: VITAL SIGNS: The patient has been afebrile for the last 24 hours. Blood pressure 137/64, heart rate 90, respiratory rate 21, oxygen saturation 100% on 3 L nasal cannula. HEENT: Pupils are equal and reactive. Oropharynx is clear. NECK: Supple. CHEST: Reveals slight decreased breath sounds left base. ABDOMEN: Obese and soft. EXTREMITIES: Reveal 1+ peripheral edema. IMAGING: Chest x-ray reveals small left-sided pleural effusion with stable cardiomegaly and vascular congestion. LABS: White blood count 7.64, hemoglobin 10.6, platelet count 269,000. Chemistry: Sodium 138, potassium 3.6, chloride 99, bicarbonate 35, BUN 40, creatinine 1.2, glucose 94. ASSESSMENT: A 73-year-old with: 1. Morbid obesity. 2. Chronic pleural effusions, transudative on evaluation. 3. Untreated sleep apnea. 4. Chronic atrial fibrillation. 5. Acute hypoxemic respiratory failure. 6. Resolving contrast-induced acute renal failure. 7. The patient also has left knee pain, status post steroid injection. Clinically, he continues to improve. RECOMMENDATIONS: 1. Continue diuretics as you are doing. 2. Anticipate the need for oxygen at discharge. 3. Recommend outpatient obstructive sleep apnea evaluation. 4. Weight loss is recommended. cc: Caleb Petty MD
[2018-09-19] MEDS: CARDIZEM CD PO SCH (08:45)
[2018-09-19] MEDS: NORVASC PO SCH ×2 (08:45→20:55)
[2018-09-19] MEDS: LOPRESSOR PO SCH ×3 (08:46→20:55)
[2018-09-19] MEDS: ASPIRIN PO SCH (08:46)
[2018-09-19] MEDS: NEURONTIN PO SCH (08:46)
[2018-09-19] MEDS: COLACE PO SCH (08:46)
[2018-09-19] MEDS: LANOXIN PO SCH (08:47)
[2018-09-19] MEDS: BASAGLAR SUBQ SCH ×2 (08:53→20:55)
[2018-09-19] MEDS ORDERED: INSULIN PEN NEEDLES ONE (08:55)
[2018-09-19] MEDS: MIRALAX PO SCH ×2 (12:26→21:02)
--- NOTE | 2018-09-19 14:35 | PROGRESS NOTE ---
DATE: 09/19/2018 SUBJECTIVE: Patient reports feeling fine. Still having some swelling in both lower extremities. OBJECTIVE: Vital Signs: Temperature 96.8 degrees, heart rate 91, respiratory rate 18, blood pressure 145/88, O2 saturation 100% on 2 L nasal cannula. General examination: This is a chronically ill-looking, 73-year-old male, lying in bed in no acute distress. Cardiovascular exam: S1, S2 heard. Irregularly irregular. Tachycardic. No murmurs, gallops, or rubs. Respiratory exam: Decreased breath sounds globally mostly at bases, but there are some scattered crackles and rhonchi, better in comparing with yesterday. Patient is not using any accessory muscles or having work of breathing. Abdomen: Soft. Nontender to palpation. Nondistended. Bowel sounds present. No organomegaly. Extremities: 2+ pitting edema present in both lower extremities. No clubbing or cyanosis noted. Peripheral pulses present in both legs. Neurological exam: Patient alert and oriented x3. Moves 4 extremities. LABORATORY DATA: Reviewed. ASSESSMENT AND PLAN: 1. Acute hypoxemic respiratory failure secondary to bilateral pleural effusion status post thoracentesis in the right side. Clinically, patient is doing good. The patient is receiving Lasix 40 mg intravenous every 12 hours. I think because this patient is still having some lower extremity edema, we will restart Bumex on this patient home doses and we will go from there. 2. Atrial fibrillation with rapid ventricular response. After we have changed metoprolol to 50 two times per day, the patient is definitely much better. We will continue with the same management. 3. Hypertension. Blood pressure is definitely much better controlled with systolic blood pressure 145 this morning. That has been in that range for the last 24 hours. At this point, we are going to continue with the same management. 4. Chronic obstructive pulmonary disease. The patient is not on any exacerbation. We will provide breathing treatments as needed. 5. Coronary artery disease is stable. No chest pain reported. 6. Morbid obesity. Aware. 7. Left knee injury due to recent trauma. Aware. 8. Diabetes mellitus type 2. We will continue with sliding scale insulin and Lantus as well. 9. Acute on chronic kidney disease. Creatinine is at baseline. We will continue to monitor. 10. Physical deconditioning. At this point, we are awaiting a rehabilitation bed. The patient is medically stable. We will release him when we get a bed. cc: Vlad Pearson MD
[2018-09-19] MEDS: BUMEX PO SCH (15:38)
[2018-09-19] MEDS: LOVENOX SUBQ SCH (15:38)
[2018-09-19] MEDS: ROCEPHIN 1 GM in NS 50 ML IV SCH (20:55)
[2018-09-19] MEDS: LIPITOR PO SCH (20:55)
[2018-09-19] MEDS ORDERED: BUMETANIDE 2 MG PO SCH (21:00)
--- NOTE | 2018-09-19 22:01 | PULMONOLOGY PROGRESS NOTE ---
DATE: 09/19/2018 SUBJECTIVE: The patient was sleeping upon my arrival. He is arousable to alert and conversant. He reports he overall feels a little better but continues to have lower extremity edema. OBJECTIVE: Vital Signs: Blood pressure 141/43, heart rate 77, respiratory rate 18, oxygen saturation 100% on nasal cannula. HEENT: Pupils are equal and reactive. Oropharynx is clear. Neck: Supple. Chest: Reveals prolonged expiratory phase. Cardiac: S1 and S2. Abdomen: Obese and soft. Extremities: Reveal 1+ pitting edema of the feet. LABORATORIES: White blood count 7.0, hemoglobin 10.6, platelet count 232,000. Chemistry: Sodium 141, potassium 3.9, chloride 100, bicarbonate 28, BUN 36, creatinine 1.3. ASSESSMENT: 73-year-old with chronic transudative pleural effusions, morbid obesity, untreated sleep apnea, acute hypoxemic respiratory failure, resolving contrast-induced acute renal failure, osteoarthritis left knee. RECOMMENDATIONS: 1. Continue oxygen for hypoxemic respiratory failure. Anticipate oxygen at discharge. 2. Continue diuretics as you're doing. 3. Recommend outpatient sleep apnea evaluation 4. Long-term weight loss is recommended. cc: Caleb Petty MD MTDD
[2018-09-20] MEDS: MORPHINE IV PRN ×3 (02:16→12:56)
[2018-09-20] MEDS: DUONEB (A & A) INH SCH ×6 (03:12→23:10)
[2018-09-20] MEDS: LASIX IV SCH ×2 (05:18→15:41)
[2018-09-20] MEDS: PRILOSEC PO SCH ×2 (06:35→21:14)
[2018-09-20] MEDS: HUMULIN R SUBQ SCH ×4 (06:35→21:14)
[2018-09-20 07:40] LABS: HEMATOCRIT 31.1 % (42.0-52.0); HEMOGLOBIN 9.8 g/dL (14.0-18.0); MCH 27.3 PG (27-31); MCHC 31.5 g/dL (33-37); MCV 86.6 FL (81-99); MPV 10.2 FL (7.4-10.4); RBC 3.59 XMIL (4.7-6.1); WBC 7.92 X1000 (4.8-10.8)
[2018-09-20 08:03] LABS: ALBUMIN 2.3 g/dL (3.5-5.0); CALCIUM 7.8 mg/dL (8.8-10.2); CREATININE 1.3 mg/dL (0.7-1.2); PHOSPHORUS 3.7 mg/dL (2.7-4.5); POTASSIUM 3.9 mmol/L (3.5-5.1)
--- NOTE | 2018-09-20 08:41 | Diag Imaging Result Doc PS360 ---
EXAM: CHEST-2 VIEWS HISTORY: abnormal exam TECHNIQUE: Chest two views COMPARISON: 09/18/2018 FINDINGS: There are small pleural effusions, left greater than right. The heart is enlarged and there is pulmonary edema. There is also left basilar atelectasis. The overall appearance is similar to the prior study. IMPRESSION: Stable chest. Electronically signed by Rob Young 09/20/2018 8:39 AM
[2018-09-20] MEDS: LANOXIN PO SCH (08:53)
[2018-09-20] MEDS: ASPIRIN PO SCH (08:53)
[2018-09-20] MEDS: COLACE PO SCH (08:53)
[2018-09-20] MEDS: MIRALAX PO SCH ×2 (08:53→21:14)
[2018-09-20] MEDS: NEURONTIN PO SCH (08:53)
[2018-09-20] MEDS: BUMEX PO SCH (08:55)
[2018-09-20] MEDS: NORVASC PO SCH ×2 (08:55→21:14)
[2018-09-20] MEDS: LOPRESSOR PO SCH ×3 (08:55→21:14)
[2018-09-20] MEDS: BASAGLAR SUBQ SCH ×2 (09:32→21:13)
[2018-09-20] MEDS: CARDIZEM CD PO SCH (11:18)
[2018-09-20] MEDS: LOVENOX SUBQ SCH (14:36)
--- NOTE | 2018-09-20 16:24 | PROGRESS NOTE ---
DATE: 09/20/2018 SUBJECTIVE: Patient reports feeling fine, although there is still pain in the right knee. OBJECTIVE: Vital Signs: Temperature 97.2 degrees, heart rate 82, respiratory rate 18, blood pressure 138/96, O2 saturation 100% on room air. General examination: This is a chronically ill- looking, 73-year-old male, lying in bed in no acute distress. HEENT: Head is normocephalic, atraumatic. Neck: No JVD noted. No carotid bruits. No lymphadenopathy. No thyromegaly. Cardiovascular exam: S1, S2 heard. No murmurs, gallops, or rubs. Irregularly irregular heart rhythm. Respiratory exam: Decreased breath sounds globally, mostly at both bases with scattered crackles and rhonchi still. The patient is not using any accessory muscles or having work of breathing. Abdomen: Soft. Nontender to palpation. Bowel sounds present. No organomegaly. Extremities: No clubbing, cyanosis, or edema. Peripheral pulses present in both legs. Neurological exam: Patient is alert, oriented x3. Moves 4 extremities. LABORATORY DATA: Reviewed. ASSESSMENT AND PLAN: 1. Acute respiratory failure secondary to bilateral pleural effusion status post thoracentesis on the right side. Clinically, this patient is doing good. He is on Lasix 40 mg intravenous every 12 hours. Also, Bumex has been restarted. We will continue with the same management. 2. Atrial fibrillation with rapid ventricular response. Heart rate is well controlled. We will continue with the same management. 3. Hypertension. Blood pressure is much better. We will continue with the same medications. 4. Chronic obstructive pulmonary disease. The patient is not on any exacerbation. We will provide breathing treatment as needed only. 5. Coronary artery disease is stable. No chest pain reported. 6. Morbid obesity. Aware. 7. Left knee injury due to recent trauma. Aware. This has been evaluated by Orthopedics. 8. Diabetes mellitus type 2. We will continue with sliding scale insulin and Lantus as well. 9. Acute on chronic kidney disease. Creatinine is at baseline. We will continue to monitor. 10. Physical deconditioning. At this point, actually we are awaiting for an insurance approval that could be probably a week. For now, we will see what happens. 11. We will continue to monitor this patient closely. cc: Vlad Pearson MD
[2018-09-20] MEDS: NORCO-5 PO PRN ×2 (16:36→21:13)
[2018-09-20] MEDS: ROCEPHIN 1 GM in NS 50 ML IV SCH (21:13)
[2018-09-20] MEDS: LIPITOR PO SCH (21:14)
[2018-09-21] MEDS: DUONEB (A & A) INH SCH ×6 (03:19→23:03)
[2018-09-21] MEDS: NORCO-5 PO PRN ×2 (04:52→15:39)
[2018-09-21] MEDS: HUMULIN R SUBQ SCH ×4 (06:05→21:32)
[2018-09-21] MEDS: PRILOSEC PO SCH ×2 (06:05→21:33)
[2018-09-21] MEDS: LASIX IV SCH ×2 (06:06→16:11)
[2018-09-21] MEDS: ASPIRIN PO SCH (09:35)
[2018-09-21] MEDS: NORVASC PO SCH ×2 (09:35→21:33)
[2018-09-21] MEDS: LANOXIN PO SCH (09:35)
[2018-09-21] MEDS: NEURONTIN PO SCH (09:35)
[2018-09-21] MEDS: BUMEX PO SCH (09:35)
[2018-09-21] MEDS: CARDIZEM CD PO SCH (09:35)
[2018-09-21] MEDS: MIRALAX PO SCH ×2 (09:35→21:33)
[2018-09-21] MEDS: COLACE PO SCH (09:35)
[2018-09-21] MEDS: LOPRESSOR PO SCH ×3 (09:35→21:33)
[2018-09-21] MEDS: BASAGLAR SUBQ SCH ×2 (09:35→21:33)
[2018-09-21] MEDS: LOVENOX SUBQ SCH (15:39)
--- NOTE | 2018-09-21 16:17 | PROGRESS NOTE ---
DATE: 09/21/2018 SUBJECTIVE: The patient home reports feeling fine. The change in medication from IV to oral that we have made yesterday, he reports that he is feeling much better. OBJECTIVE: Vital Signs: Temperature 97.2 degrees, heart rate 89, respiratory rate 18, blood pressure 129/70, oxygen saturation 94% on room air. General: This is a 73-year-old male, lying in bed, in no acute distress. HEENT: Head is normocephalic and atraumatic. Neck: No JVD noted. No carotid bruits. No lymphadenopathy. No thyromegaly. Cardiovascular: S1, S2 heard. No murmurs, gallops, or rubs. Irregularly irregular heart rhythm. Respiratory: Decreased breath sounds globally, mostly in both bases, with fine scattered crackles and rhonchi still noted there. The patient is not using any accessory muscles or having work of breathing. Abdomen: Soft, nontender to palpation. Bowel sounds present. No organomegaly. Extremities: No clubbing, cyanosis, or edema. Peripheral pulses present in both legs. Neurological: Patient alert and oriented x3. Moves 4 extremities. LABORATORY DATA: Reviewed. ASSESSMENT AND PLAN: 1. Acute respiratory failure secondary to bilateral pleural effusion. Clinically, he is doing fine. Patient continues to be on Lasix 40 mg IV q.12 hours he is on room air right now. Clinically, he is not complaining of any shortness of breath. The urine output has been 1.1 L yesterday. We will continue with the same management. 2. Atrial fibrillation with rapid ventricular rate. Heart rate is well-controlled with oral medication we provided to him. We will continue with the same management. 3. Hypertension. Blood pressure is stable. We will continue with the same medications. 4. Chronic obstructive pulmonary disease. Patient is not in any exacerbation. We will provide breathing treatments as needed only. 5. Coronary artery disease. That condition is stable. No chest pain reported. We will continue home medications. 6. Left knee injury due to recent trauma. The patient reports he has been seen by Dr. Teran. Apparently, he is supposed to be seen as an outpatient for treatment of meniscal tears as an outpatient, but the patient reports that he wanted to go to rehab after he had the surgery. We will talk with Orthopedics about that opportunity, and see if we can do that. 7. Diabetes mellitus type 2. We will continue with sliding scale insulin and Lantus. 8. Ipnwu-kz-fhzlvbz kidney disease. Creatinine is at baseline. We will continue to monitor. 9. Physical deconditioning. We will continue with physical therapy. 10. Disposition. At this point, we will check on social work coordinator on Sunday if we can send this patient home with home health. or have that surgery that Orthopedics has recommended. At this point, we are going to talk with Orthopedics to see if he can be seen as an outpatient and does not need to go to rehab first. Depending upon their recommendation, we will send this patient home or keep him in the hospital in order to transfer him to a rehab facility. cc: Vlad Pearson MD
[2018-09-21] MEDS: LIPITOR PO SCH (21:33)
[2018-09-21] MEDS: MORPHINE IV PRN (21:34)
[2018-09-21] MEDS: ROCEPHIN 1 GM in NS 50 ML IV SCH (21:34)
[2018-09-22] MEDS: MORPHINE IV PRN (02:40)
[2018-09-22] MEDS: DUONEB (A & A) INH SCH ×6 (03:25→22:52)
[2018-09-22] MEDS: HUMULIN R SUBQ SCH ×4 (06:13→20:49)
[2018-09-22] MEDS: PRILOSEC PO SCH ×2 (06:13→20:48)
[2018-09-22] MEDS: LASIX IV SCH ×2 (06:13→17:40)
[2018-09-22] MEDS: NORCO-5 PO PRN ×4 (06:19→23:05)
[2018-09-22 08:30] LABS: AGAP 15; BUN 38 mg/dL (8-22); CALCIUM 8.6 mg/dL (8.8-10.2); CHLORIDE 95 mmol/L (98-107); COSMO 277; CREATININE 1.4 mg/dL (0.7-1.2); GLUCOSE 97 mg/dL (70-104); MAGNESIUM 1.9 mg/dL (1.5-2.7); POTASSIUM 4.8 mmol/L (3.5-5.1); SODIUM 134 mmol/L (136-145); TCO2 24 mmol/L (25-35)
[2018-09-22] MEDS: LANOXIN PO SCH (09:03)
[2018-09-22] MEDS: NORVASC PO SCH ×2 (09:03→20:48)
[2018-09-22] MEDS: BUMEX PO SCH (09:04)
[2018-09-22] MEDS: CARDIZEM CD PO SCH (09:04)
[2018-09-22] MEDS: NEURONTIN PO SCH (09:04)
[2018-09-22] MEDS: LOPRESSOR PO SCH ×3 (09:04→20:48)
[2018-09-22] MEDS: ASPIRIN PO SCH (09:04)
[2018-09-22] MEDS: COLACE PO SCH (09:06)
[2018-09-22] MEDS: MIRALAX PO SCH ×2 (09:06→21:48)
[2018-09-22] MEDS: BASAGLAR SUBQ SCH ×2 (09:14→20:50)
[2018-09-22] MEDS ORDERED: INSULIN PEN NEEDLES ONE (09:18)
[2018-09-22] MEDS: LOVENOX SUBQ SCH (13:59)
--- NOTE | 2018-09-22 14:01 | PROGRESS NOTE ---
DATE: 09/22/2018 SUBJECTIVE: The patient reports feeling fine. Pain definitely is under control. OBJECTIVE: Vital Signs: Temperature 98.1 degrees, heart rate 72, respiratory rate 20, blood pressure 148/77, O2 saturation 95% on room air. General: This is a 73-year- old male lying in bed in no acute distress. Cardiovascular: S1, S2 heard. No murmurs , gallops, or rubs. Regular rate and rhythm. Respiratory: Decreased breath sounds globally, mostly in both bases. There are fine scattered crackles in both pulmonary bases, but patient is not using any accessory muscles or having work of breathing. Abdomen: Soft, nontender to palpation. Bowel sounds present. No organomegaly. Extremities: No clubbing, cyanosis, or edema. Peripheral pulses present in both legs. Neurological: The patient is alert and oriented x3. Moves 4 extremities. LABORATORY DATA: Reviewed. ASSESSMENT AND PLAN: 1. Acute respiratory failure secondary to bilateral pleural effusion. Patient is on Lasix 40 mg IV q.12 hours plus Bumex 1 mg p.o. b.i.d. and the patient is clinically doing much better. Not requiring any oxygen supplementation. So, at this point, we will continue with the same management. 2. Atrial fibrillation with rapid ventricular response. Since she is on metoprolol 50 three times per day, heart rate is well controlled all the time. We will continue with the same management. 3. Hypertension. Blood pressure is stable. We will continue with same management. 4. COPD. Patient is not in an exacerbation. We will provide breathing treatment as needed. 5. Coronary artery disease. Aware. 6. Left knee injury due to recent trauma. The patient has been evaluated by Orthopedics, and they determined that the patient needs to be seen as an outpatient for arthroscopy and surgery that they did not provide much information about. At this point, patient prefers to go home while he waits for that surgery and after that he prefers to go to rehab. We will talk with them tomorrow to see if that is possible and we will go from there. 7. Diabetes mellitus type 2. We will continue with sliding scale insulin and Accu-Cheks before meals and also at bedtime. 8. Acute on chronic kidney disease. Stable. We will continue to monitor. 9. Disposition. At this point, we need to know if the patient has to go to rehab facility in order to get that surgery done or he can go home and get this knee surgery and then go to rehab. We will see what happens. cc: Vlad Perason MD MTDD
[2018-09-22] MEDS: LIPITOR PO SCH (20:48)
[2018-09-22] MEDS: ROCEPHIN 1 GM in NS 50 ML IV SCH (20:50)
[2018-09-23] MEDS: NORCO-5 PO PRN ×3 (03:01→16:21)
[2018-09-23] MEDS: LASIX IV SCH ×3 (03:01→16:20)
[2018-09-23] MEDS: DUONEB (A & A) INH SCH ×6 (03:13→23:07)
[2018-09-23] MEDS: PRILOSEC PO SCH ×2 (06:25→22:18)
[2018-09-23] MEDS: HUMULIN R SUBQ SCH ×4 (06:26→22:21)
--- NOTE | 2018-09-23 07:07 | Diag Imaging Result Doc PS360 ---
CHEST-1 VIEW - 09/23/2018 INDICATION: SOB COMPARISON: 09/20/2018 FINDINGS: Stable cardiomegaly and severe pulmonary vascular congestion. There has been decrease in the left basilar airspace opacification. No new infiltrates. IMPRESSION: Decrease in the left basilar focal opacity compatible with infiltrate and/or pleural effusion. Electronically signed by Prashanth Valerio 09/23/2018 7:04 AM
[2018-09-23] MEDS: ASPIRIN PO SCH (08:42)
[2018-09-23] MEDS: BUMEX PO SCH (08:42)
[2018-09-23] MEDS: NORVASC PO SCH ×2 (08:42→22:18)
[2018-09-23] MEDS: COLACE PO SCH (08:42)
[2018-09-23] MEDS: NEURONTIN PO SCH (08:42)
[2018-09-23] MEDS: MIRALAX PO SCH ×2 (08:42→22:18)
[2018-09-23] MEDS: LOPRESSOR PO SCH ×3 (08:43→22:17)
[2018-09-23] MEDS: CARDIZEM CD PO SCH (08:43)
[2018-09-23] MEDS: LANOXIN PO SCH (08:43)
[2018-09-23] MEDS: BASAGLAR SUBQ SCH ×2 (08:43→22:19)
--- NOTE | 2018-09-23 11:43 | PROGRESS NOTE ---
DATE: 09/23/2018 SUBJECTIVE: Patient reports feeling fine. Denies any other complaints. OBJECTIVE: Vital Signs: Temperature 98.1 degrees, heart rate 71, respiratory rate 18, blood pressure 121/54, O2 saturation 96% on room air. General examination: This is a chronically ill- looking, 73-year-old male, lying in bed, in no acute distress. HEENT : Head is normocephalic, atraumatic. Neck: No JVD noted. No carotid bruit. Cardiovascular: S1, S2 heard. No murmurs, gallops, or rubs. Regular rate and rhythm. Respiratory: Decreased breath sounds globally mostly at bases with fine scattered crackles and rhonchi, but patient is not using any accessory muscles or having work of breathing. Abdomen: Soft, nontender to palpation. Bowel sounds present. No organomegaly. Extremities: No clubbing, cyanosis. Mild edema 1+ in both lower extremities. Peripheral pulses present in both legs. Neurological: Patient is alert and oriented x3. Moves 4 extremities. ASSESSMENT AND PLAN: 1. Acute respiratory failure secondary to bilateral pleural effusion. That condition is resolved. Patient continues to be on Lasix 40 mg IV q.12 hours plus Bumex 1 mg p.o. daily. The patient continues to be feeling fine. At this point, he is not requiring any oxygen supplementation. We will continue with the same management. 2. Atrial fibrillation with rapid ventricular response. Actually, he continues to be in atrial fibrillation. Heart rate is well controlled. He is receiving metoprolol 50 mg p.o. 3 times per day. We will continue with same management. 3. Hypertension. Blood pressure is under control. 4. COPD. The patient is not on any exacerbation. We will continue with the same management. In this case, alex Rod. 5. Coronary artery disease. Aware. 6. Left knee injury due to recent trauma. According to Orthopedics, the first option for him is nonsurgical approach. In that case, he is going to need to go to rehab. He needs to be seen in the office after he is discharged, but he is not needing any surgery at this point. 7. Diabetes mellitus type 2. We will continue with sliding scale insulin, Accu- Chek before meals and also at bedtime. 8. Acute on chronic kidney disease. Creatinine is at his baseline. We will continue to monitor BMP. 9. Disposition. At this point, we continue to wait for rehab facility for this patient. [facility] wafer production lead worker informed they are looking for a bed for the last 4 days. Unfortunately his insurance company [employer] has informed us that could take until after New Year to gen an approval for rehab, which is completely unacceptable but we can not do anything to speed up that process. In the meantime we will continue to monitor patient closely. cc: Vlad Pearson MD MTDD
[2018-09-23] MEDS: LOVENOX SUBQ SCH (16:15)
[2018-09-23] MEDS: MORPHINE IV PRN ×2 (19:47→22:32)
[2018-09-23] MEDS: LIPITOR PO SCH (22:18)
[2018-09-23] MEDS: ROCEPHIN 1 GM in NS 50 ML IV SCH (22:18)
[2018-09-24] MEDS: DUONEB (A & A) INH SCH ×6 (03:08→23:20)
[2018-09-24] MEDS: NORCO-5 PO PRN ×2 (03:53→14:20)
[2018-09-24] MEDS: LASIX IV SCH ×2 (06:38→18:59)
[2018-09-24] MEDS: PRILOSEC PO SCH ×2 (06:44→21:00)
[2018-09-24] MEDS: HUMULIN R SUBQ SCH ×4 (06:45→21:01)
[2018-09-24] MEDS: LOPRESSOR PO SCH ×3 (09:00→21:00)
[2018-09-24] MEDS: ASPIRIN PO SCH (09:57)
[2018-09-24] MEDS: BUMEX PO SCH (09:58)
[2018-09-24] MEDS: BASAGLAR SUBQ SCH ×2 (09:58→21:01)
[2018-09-24] MEDS: CARDIZEM CD PO SCH (09:58)
[2018-09-24] MEDS: COLACE PO SCH ×2 (09:59→11:59)
[2018-09-24] MEDS: LANOXIN PO SCH (10:00)
[2018-09-24] MEDS: NEURONTIN PO SCH (10:01)
[2018-09-24] MEDS: NORVASC PO SCH ×2 (10:02→21:00)
[2018-09-24] MEDS: MIRALAX PO SCH ×2 (12:01→21:01)
[2018-09-24] MEDS: LOVENOX SUBQ SCH (14:21)
--- NOTE | 2018-09-24 15:40 | PROGRESS NOTE ---
DATE: 09/24/2018 SUBJECTIVE: The patient is awake. The family present in the room. OBJECTIVE: Vital signs: Temperature 97.7 degrees, pulse 70, respirations 20, blood pressure 144/80, oxygen is 96%. HEENT: He is atraumatic, normocephalic. Cardiovascular: Distant heart sounds. Respiratory: No rales or rhonchi noted. Abdomen: Obese, nontender. No masses felt. Extremities: Trace edema in the lower extremities. Central nervous system: No obvious focal deficit noted. LABS: Blood sugar 263. ASSESSMENT AND PLAN: 1. Acute respiratory failure. The patient's last chest x-ray done on 09/23/2018 shows evidence of stable cardiomegaly with severe pulmonary vascular congestion. There is also notation of a decrease in the left basilar airspace opacification. The patient is currently on diuretics that will need to be continued. 2. Atrial fibrillation. Heart rate controlled. Continue rate controlling agent. 3. Hypertension. Continue current regimen. 4. Chronic obstructive pulmonary disease. Use nebulized bronchodilators as needed. 5. Coronary artery disease. Aware. 6. Left knee injury due to recent trauma. Orthopedics already consulted. 7. Diabetes mellitus type 2. Continue blood sugar monitoring as well as sliding scale insulin. 8. Acute on chronic kidney disease. Continue to monitor patient's renal function especially with patient being on diuretics. Avoid nephrotoxic agents. 9. Disposition. conference services coordinator has been consulted. cc: Jong Bustillo MD
[2018-09-24] MEDS: ROCEPHIN 1 GM in NS 50 ML IV SCH (21:00)
[2018-09-24] MEDS: LIPITOR PO SCH (21:00)
[2018-09-24] MEDS: MORPHINE IV PRN (22:05)
[2018-09-25] MEDS: MORPHINE IV PRN ×2 (01:44→04:46)
[2018-09-25] MEDS: DUONEB (A & A) INH SCH ×6 (04:53→23:15)
[2018-09-25] MEDS: LASIX IV SCH (06:50)
[2018-09-25 07:03] LABS: BASO# 0.01 X1000 (0.0-0.2); BASO% 0.2 % (0.0-0.8); EOS# 0.26 X1000 (0.0-0.7); EOS% 4.2 % (0.0-10.0); HEMOGLOBIN 9.7 g/dL (14.0-18.0); IMM GRAN# 0.12 X1000 (0.0-0.04); IMM GRAN% 1.9 % (0.0-0.5); LYMPH# 0.74 X1000 (1.2-3.4); MCH 26.9 PG (27-31); MCHC 31.3 g/dL (33-37); MCV 86.1 FL (81-99); MONO# 0.66 X1000 (0.11-0.59); MONO% 10.7 % (1.7-9.3); MPV 10.3 FL (7.4-10.4); NEUT# 4.39 X1000 (1.4-6.5); PLT 231 X1000 (130-400); RDW 16.1 % (11.5-14.5); WBC 6.18 X1000 (4.8-10.8)
[2018-09-25] MEDS: HUMULIN R SUBQ SCH ×4 (07:14→20:52)
[2018-09-25] MEDS: PRILOSEC PO SCH ×2 (07:15→20:52)
[2018-09-25 07:26] LABS: ALB/GLOB RATIO 0.7; ALBUMIN 2.7 g/dL (3.5-5.0); CALCIUM 8.2 mg/dL (8.8-10.2); CREATININE 1.3 mg/dL (0.7-1.2); POTASSIUM 4.4 mmol/L (3.5-5.1); TOTAL BILIRUBIN 0.47 mg/dL (0.20-1.00); TOTAL PROTEIN 6.5 g/dL (6.3-8.3)
--- NOTE | 2018-09-25 07:35 | Diag Imaging Result Doc PS360 ---
CHEST-1 VIEW - 09/25/2018 INDICATION: SOB COMPARISON: 09/23/2018 FINDINGS: Stable cardiomegaly and pulmonary vascular congestion. Stable multifocal infiltrates in the left lung base. Stable hazy interstitial pulmonary edema. IMPRESSION: No significant change from prior. Electronically signed by Prashanth Valerio 09/25/2018 7:33 AM
[2018-09-25] MEDS: NORCO-5 PO PRN ×3 (08:18→21:00)
[2018-09-25] MEDS: NORVASC PO SCH ×2 (08:19→20:51)
[2018-09-25] MEDS: ASPIRIN PO SCH (08:19)
[2018-09-25] MEDS: CARDIZEM CD PO SCH (08:19)
[2018-09-25] MEDS: LOPRESSOR PO SCH ×3 (08:19→20:52)
[2018-09-25] MEDS: BUMEX PO SCH (08:19)
[2018-09-25] MEDS: NEURONTIN PO SCH (08:19)
[2018-09-25] MEDS: LANOXIN PO SCH (08:19)
[2018-09-25] MEDS: COLACE PO SCH (08:20)
[2018-09-25] MEDS: MIRALAX PO SCH ×2 (08:20→20:52)
[2018-09-25] MEDS: BASAGLAR SUBQ SCH ×3 (08:28→21:01)
[2018-09-25] MEDS ORDERED: INSULIN PEN NEEDLES ONE (08:29)
[2018-09-25] MEDS: LOVENOX SUBQ SCH (15:16)
--- NOTE | 2018-09-25 16:01 | PROGRESS NOTE ---
DATE: 09/25/2018 INTERVAL HISTORY: The patient's dyspnea essentially resolved at this point. Continues to complain of left knee pain, but no new complaints. No acute events overnight. REVIEW OF SYSTEMS: Twelve point review of system negative, except as for interval history. LABS: WBC 6.1, hemoglobin 9.7, hematocrit 31, platelets 231. Creatinine 1.3, BUN 30, glucose 194, calcium 8.2, albumin 2.7. BNP 1947. Albumin 2.7, alkaline phosphatase 142 , AST 36. Complete metabolic panel otherwise unremarkable. IMAGING: Chest x-ray with no significant change from prior. Mild cardiomegaly and pulmonary vascular congestion, as well as infiltrates to the left lung base, unchanged. PHYSICAL EXAMINATION: Vitals: T-max 98.9 degrees, pulse 69, respirations 18, blood pressure 144/64, O2 saturation 96% on room air. General Examination: On physical examination, no acute distress. Vitals as above. HEENT: Normocephalic, atraumatic. Moist mucous membranes. Neck: No cervical adenopathy. Cardiovascular: Regular rate and rhythm. No murmurs, rubs, or gallops. Pulmonary: Slightly decreased air entry throughout, but largely clear to auscultation. Abdomen: Soft, nontender, nondistended. Bowel sounds positive, obese. Extremities: Trace edema on the right and 1+ to 2+ edema in the left lower extremity, which is chronic and unchanged. Neurologic: Cranial nerves 2-12 grossly intact. No focal motor or sensory deficits. Psychiatric: Normal mood and affect. Awake, alert, oriented times three. Skin: No new rashes or lesions noted. ASSESSMENT AND PLAN: 1. Acute hypoxic respiratory failure: Multifactorial with acute on chronic diastolic congestive heart failure, underlying chronic obstructive pulmonary disease. Patient with initial saturations in the high 80s on room air, but not saturating well on room air. Chest x-ray still with some edema, but clinically and on exam patient much improved. Respiratory symptoms essentially resolved at this point. We will transition diuretics to entirely intravenous. Will increase Bumex to 2 mg daily and stop intravenous Lasix. Continue digoxin. Continue nebulizers. Not on any steroids at this point. If the patient tolerates change in diuretics well, then essentially stable for discharge to rehabilitation once bed is obtained. Awaiting insurance approval for rehabilitation. 2. Paroxysmal atrial fibrillation. Heart rate has remained controlled and frequently in normal sinus rhythm. No changes at this time. 3. Chronic kidney disease stage III. Creatinine largely stable. Continue to monitor. 4. Hypertension. Occasional mild elevation, but largely reasonable control on current therapy with Norvasc 5 twice daily, Bumex as above, diltiazem and metoprolol. 5. Coronary artery disease. Continue aspirin, beta jovana. 6. Left knee injury from trauma prior to admission. Magnetic resonance imaging with possible meniscal injury, but nothing requiring urgent surgical intervention. The plan is for outpatient orthopedic workup. 7. Morbid obesity. Patient counseled on diet and exercise as possible once acute issues resolved. 8. Hyperlipidemia. Continue statin. 9. Gastroesophageal reflux disease. Continue Prilosec. 10. Chronic pain. The patient on home gabapentin. Also, on low-dose [place] with reasonable control. 11. Deep vein thrombosis. [facility]
[2018-09-25] MEDS: ROCEPHIN 1 GM in NS 50 ML IV SCH (20:50)
[2018-09-25] MEDS: LIPITOR PO SCH (20:51)
[2018-09-25] MEDS ORDERED: LASIX IV SCH (21:00)
[2018-09-26] MEDS: DUONEB (A & A) INH SCH ×6 (03:37→23:10)
[2018-09-26] MEDS: HUMULIN R SUBQ SCH ×4 (06:19→20:20)
[2018-09-26 07:34] LABS: CALCIUM 8.4 mg/dL (8.8-10.2); CREATININE 1.3 mg/dL (0.7-1.2); POTASSIUM 4.3 mmol/L (3.5-5.1)
[2018-09-26] MEDS: PRILOSEC PO SCH ×2 (08:19→20:22)
[2018-09-26] MEDS: COLACE PO SCH (08:20)
[2018-09-26] MEDS: ASPIRIN PO SCH (08:20)
[2018-09-26] MEDS: CARDIZEM CD PO SCH (08:20)
[2018-09-26] MEDS: BUMEX PO SCH ×2 (08:20→20:25)
[2018-09-26] MEDS: NORCO-5 PO PRN ×2 (08:20→20:22)
[2018-09-26] MEDS: NORVASC PO SCH ×2 (08:20→20:22)
[2018-09-26] MEDS: LOPRESSOR PO SCH ×4 (08:21→20:22)
[2018-09-26] MEDS: NEURONTIN PO SCH (08:21)
[2018-09-26] MEDS: LANOXIN PO SCH (08:21)
[2018-09-26] MEDS: MIRALAX PO SCH ×2 (08:22→20:23)
[2018-09-26] MEDS: BASAGLAR SUBQ SCH ×2 (10:14→20:21)
[2018-09-26] MEDS: LOVENOX SUBQ SCH (14:46)
--- NOTE | 2018-09-26 18:51 | PROGRESS NOTE ---
DATE: 09/26/2018 Overnight, no acute events. SUBJECTIVE: He is feeling fine. He states he was able to come out of bed and stand up using his walker. He denies having chest pain. Denies feeling short of breath. He states that he does not use oxygen at home. We discussed about discharge planning to rehab pending insurance authorization. I answered all of his questions. He denies chest pain. OBJECTIVE: Vital signs: Temperature 97.4 degrees, pulse 71 per minute, blood pressure 136/59, saturating 94% on room air. General: Morbidly obese. Does not appear in acute distress. Oral cavity is moist. Lungs: Breath sounds are diminished. Bilateral infrascapular region. Mild inspiratory crackles. Cardiovascular: S1, S2 normal. No murmur or gallop. Abdomen: Obese. Extremities: 2+ bilateral lower extremity edema. LABORATORY DATA: Suggestive of what appears to be chronic kidney disease stage 3 and is at baseline. Blood sugars between 85 to 200. Microbiology, no new data. No new imaging today. ASSESSMENT AND PLAN: 1. Acute hypoxic respiratory failure because of acute on chronic heart failure with preserved ejection fraction exacerbation, underlying chronic obstructive pulmonary disease acute exacerbation of and bilateral multifocal pneumonia. The patient has been breathing well on room air for now. We will give him oxygen if needed to maintain saturation more than 90%. 2. Acute on chronic diastolic congestive heart failure. Continue home bumetanide 2 mg b.i.d. I will consider adding spironolactone as tolerated, as it probably has mortality benefit. Continue metoprolol. 3. Acute chronic obstructive pulmonary disease exacerbation, currently stable. Continue albuterol ipratropium nebulization. 4. Bilateral lung base multifocal pneumonia. He has been on intravenous ceftriaxone and he completed almost 14 days of course. I will stop it and see his response off antibiotics. 5. History of paroxysmal atrial fibrillation, heart rate within acceptable range and frequently in sinus rhythm. Continue his home medications of diltiazem, digoxin and aspirin daily. Previously had a GI bleed and he has not been on any anticoagulation. 6. Hypertension. Continue amlodipine, diltiazem, metoprolol and bumetanide. 7. History of insulin-dependent diabetes mellitus. Continue insulin glargine and sliding scale insulin. 8. Coronary artery disease. Continue aspirin. 9. Left knee injury from trauma prior to admission with MRI suggestive of likely meniscal injury. No acute intervention needed at the moment. Outpatient surgery followup. 10. Morbid obesity. The patient was previously counseled on diet and exercise. 11. Chronic pain. Continue patient's home gabapentin, and low-dose [place]. 12. Disposition. The patient is awaiting insurance authorization for transfer to rehab, which might happen early October as per the previous documentation. 13. Continue physical therapy Plan of care was discussed with the patient. All of his questions have been answered. cc: Laureano Villavicencio MD
[2018-09-26] MEDS ORDERED: INSULIN PEN NEEDLES ONE (20:22)
[2018-09-26] MEDS: LIPITOR PO SCH (20:22)
[2018-09-27] MEDS: NORCO-5 PO PRN ×2 (01:30→09:09)
[2018-09-27] MEDS: DUONEB (A & A) INH SCH ×7 (03:48→23:50)
[2018-09-27] MEDS: HUMULIN R SUBQ SCH ×4 (06:02→21:01)
[2018-09-27] MEDS: PRILOSEC PO SCH ×2 (06:13→21:01)
[2018-09-27 07:54] LABS: CALCIUM 8.6 mg/dL (8.8-10.2); CREATININE 1.3 mg/dL (0.7-1.2); POTASSIUM 4.2 mmol/L (3.5-5.1)
[2018-09-27] MEDS: COLACE PO SCH (09:08)
[2018-09-27] MEDS: LOPRESSOR PO SCH ×3 (09:08→22:04)
[2018-09-27] MEDS: NEURONTIN PO SCH (09:08)
[2018-09-27] MEDS: NORVASC PO SCH (09:09)
[2018-09-27] MEDS: CARDIZEM CD PO SCH (09:09)
[2018-09-27] MEDS: LANOXIN PO SCH (09:09)
[2018-09-27] MEDS: ASPIRIN PO SCH (09:09)
[2018-09-27] MEDS: BASAGLAR SUBQ SCH ×2 (09:10→20:52)
[2018-09-27] MEDS: MIRALAX PO SCH ×2 (09:10→21:01)
[2018-09-27] MEDS: BUMEX PO SCH ×2 (09:25→21:01)
[2018-09-27] MEDS: LOVENOX SUBQ SCH (17:38)
--- NOTE | 2018-09-27 18:26 | PROGRESS NOTE ---
DATE: 09/27/2018 NOTE: Overnight, no acute events except his blood sugars were dropping. He did not have any complaints though and I decreased his insulin. SUBJECTIVE: He is feeling fine. He is feeling much better. He stated he was able to come out of bed today, was able to walk around his bed with the help of Physical Therapy, and he was feeling stronger today. We discussed about insurance pending approval. I answered all of his questions. OBJECTIVE: Vitals: Temperature 97.4 degrees, pulse 60 per minute, blood pressure 130/57, saturating 94% to 95% on room air. General: Appears morbidly obese, not in acute distress. Respiratory: Air entry bilaterally equal. No wheeze, rhonchi, or crackles. Cardiovascular: S1, S2 normal. He has systolic murmur affecting the base of the heart and apex of the heart as well. No rub or gallop. Abdomen: Obese, soft, nontender. Extremities: 2 to 3+ bilateral pitting pedal edema. No lower extremity tingling or numbness. LABORATORY DATA: BMP suggestive of stable chronic kidney disease, stage 3. Blood glucose where she had one hypoglycemic episode with sugars of 63, early in the morning. ASSESSMENT AND PLAN: 1. Acute hypoxic respiratory failure because of acute on chronic heart failure with preserved ejection fraction exacerbation, underlying COPD acute exacerbation, and bilateral multifocal pneumonia. He has been breathing well on room air. 2. Acute on chronic diastolic congestive heart failure exacerbation. Continue home bumetanide 2 mg b.i.d. I will consider adding spironolactone to his regimen as tolerated. Continue metoprolol and atorvastatin. 3. Acute COPD exacerbation, currently stable. Continue albuterol ipratropium nebulization. 4. Bilateral lung multifocal pneumonia affecting bases, status post 14 days of intravenous ceftriaxone. 5. History of paroxysmal atrial fibrillation, currently heart rate in acceptable range, frequently in sinus rhythm. Continue diltiazem, digoxin and aspirin. Previously he had GI bleed and he was not on any anticoagulation. 6. Hypertension. Continue amlodipine, diltiazem, metoprolol and bumetanide. 7. History of insulin-dependent diabetes mellitus. Decrease insulin glargine dose. Continue sliding scale insulin. 8. Coronary artery disease. Continue aspirin and statin. 9. Left knee injury from trauma prior to admission, with MRI suggestive of likely meniscal injury. No acute intervention needed. Outpatient orthopedic surgery followup. 10. Morbid obesity. Aware. 11. Chronic pain. Continue home gabapentin, low-dose [place]. DISPOSITION: The patient is still awaiting insurance authorization for transfer to rehab. I will continue inpatient physical therapy and plan of care were discussed with him. All of his questions have been answered. cc: Laureano Villavicencio MD
[2018-09-27] MEDS: LIPITOR PO SCH (21:01)
[2018-09-28] MEDS: DUONEB (A & A) INH SCH ×6 (04:25→23:58)
[2018-09-28] MEDS: HUMULIN R SUBQ SCH ×4 (06:12→20:40)
[2018-09-28] MEDS: PRILOSEC PO SCH ×2 (06:16→20:39)
[2018-09-28 07:21] LABS: CALCIUM 8.9 mg/dL (8.8-10.2); CREATININE 1.4 mg/dL (0.7-1.2); POTASSIUM 4.2 mmol/L (3.5-5.1)
[2018-09-28] MEDS: NEURONTIN PO SCH (09:00)
[2018-09-28] MEDS: BASAGLAR SUBQ SCH ×2 (09:00→20:28)
[2018-09-28] MEDS: CARDIZEM CD PO SCH (09:00)
[2018-09-28] MEDS: COLACE PO SCH (09:00)
[2018-09-28] MEDS: BUMEX PO SCH ×2 (09:12→20:40)
[2018-09-28] MEDS: LANOXIN PO SCH (09:12)
[2018-09-28] MEDS: LOPRESSOR PO SCH ×3 (09:12→20:39)
[2018-09-28] MEDS: NORCO-5 PO PRN (09:13)
[2018-09-28] MEDS: ASPIRIN PO SCH (09:13)
[2018-09-28] MEDS: NORVASC PO SCH (09:14)
[2018-09-28] MEDS: MIRALAX PO SCH ×2 (09:14→20:29)
--- NOTE | 2018-09-28 15:39 | PROGRESS NOTE ---
DATE: 09/28/2018 Overnight no acute events. SUBJECTIVE: He is feeling fine. He states that he is able to walk a little bit in his corridor. However, he is afraid of coming out and walking in the hallway without any help as he still has some pain inside his left knee that he had sustained after the accident and he is worried he may fall down. OBJECTIVE: Currently his vitals are temperature of 98 degrees, pulse 92 per minute, blood pressure 149/92, saturating 98% on room air. Physical examination: General: Does not appear to be in acute distress. Morbidly obese. Mild shortness of breath. Air entry bilaterally equal. No wheeze, rhonchi, only mild occasional crackles bilateral lower lung lobes. Cardiovascular: S1, S2 normal. Systolic murmur affecting base of the heart and apex. No rub or gallop. Abdomen: Obese, soft, nontender. 2 to 3+ bilateral pitting pedal edema. No lower extremity tingling or numbness. LABS: Suggestive of acceptable range of electrolytes with a GFR of 50 and CKD stage IIIA, which is his baseline. No new microbiological data, no new imaging. ASSESSMENT AND PLAN: 1. Acute hypoxic respiratory failure because of acute on chronic diastolic heart failure exacerbation, underlying acute COPD exacerbation and bilateral multifocal pneumonia. It has resolved. He is breathing well on room air. 2. Acute on chronic diastolic congestive heart failure exacerbation. Continue home bumetanide and add spironolactone. Continue metoprolol and atorvastatin. Follow up with BMP. 3. Acute COPD exacerbation, currently stable. Continue albuterol ipratropium nebulization. 4. Bilateral multifocal pneumonia affecting bases, status post 14 days of ceftriaxone. 5. History of paroxysmal atrial fibrillation, currently heart in acceptable range, frequently in sinus rhythm. Continue diltiazem, digoxin and aspirin. He had history of GI bleed and has not been on any anticoagulation. 6. Hypertension. Continue amlodipine, diltiazem, metoprolol, and bumetanide. 7. History of insulin-dependent diabetes mellitus. Continue current glargine dose and sliding scale insulin. No more hypoglycemia. 8. Coronary artery disease. Continue aspirin and statin. 9. Left knee injury from trauma prior to admission with MRI suggestive of likely meniscal injury. Outpatient orthopedic follow-up is advised. 10. Morbid obesity. The patient was counseled about regular physical activity. 11. Chronic pain. Continue home gabapentin and low-dose [place]. 12. Disposition. Continue physical therapy while inpatient. The patient is still awaiting insurance authorization for rehab transfer. We mutually decided that if insurance authorization does not happen by Sunday, the patient would like to go home on home physical therapy. All of his questions have been answered. cc: Laureano Villavicencio MD
[2018-09-28] MEDS: LOVENOX SUBQ SCH (15:56)
[2018-09-28] MEDS: ALDACTONE PO SCH (15:57)
--- NOTE | 2018-09-28 18:16 | PULMONOLOGY PROGRESS NOTE ---
DATE: 09/28/2018 SUBJECTIVE: The patient is sitting up on the side of his bed eating supper. He is awake, alert and conversant. He denies shortness of breath. He reports his knee pain has significantly improved. OBJECTIVE: The patient has been afebrile for the last 24 hours. Blood pressure is 149/92, heart rate 92, respiratory rate 16, oxygen saturation 98% on 2 L per nasal cannula. HEENT: Pupils are equal and reactive. Oropharynx is clear. Neck is supple. Chest reveals diminished breath sounds in the lung bases. Cardiac: S1, S2. Abdomen is obese and soft. Extremities reveal 1+ peripheral edema. DIAGNOSTIC DATA: Sodium is 137, potassium 4.2, chloride 100, bicarbonate 28, BUN is 30, creatinine 1.4. IMPRESSION: A 73 year old with transudative pleural effusions, morbid obesity, untreated sleep apnea, acute hypoxemic respiratory failure, chronic atrial fibrillation, and left knee pain. Left knee pain has markedly improved. He continues to have peripheral edema. RECOMMENDATIONS: 1. Continue current diuretic regimen. 2. Anticipate oxygen at the time of discharge. 3. Recommend outpatient sleep evaluation. 4. Weight loss is recommended. 5. We will obtain 2-view chest x-ray tomorrow. cc: Caleb Petty MD
[2018-09-28] MEDS: LIPITOR PO SCH (20:40)
[2018-09-29] MEDS: DUONEB (A & A) INH SCH ×6 (03:39→23:31)
[2018-09-29] MEDS: HUMULIN R SUBQ SCH ×4 (05:54→21:05)
[2018-09-29] MEDS: PRILOSEC PO SCH ×2 (06:48→21:04)
--- NOTE | 2018-09-29 08:36 | Diag Imaging Result Doc PS360 ---
EXAM: CHEST-2 VIEWS INDICATION: abnormal exam TECHNIQUE: 3 views COMPARISON: 09/25/2018 FINDINGS: There is a pleural effusion at the left lung base that has increased in size. It is now probably moderate in size. Pulmonary venous congestion and interstitial edema is approximately stable as compared to the previous study. Cardiac silhouette is stable. IMPRESSION: Increasing left effusion. Essentially stable chest, otherwise. Electronically signed by Neno Mckeon 09/29/2018 8:34 AM
[2018-09-29] MEDS: ALDACTONE PO SCH (09:40)
[2018-09-29] MEDS: NORVASC PO SCH (09:40)
[2018-09-29] MEDS: ASPIRIN PO SCH (09:40)
[2018-09-29] MEDS: MIRALAX PO SCH ×2 (09:41→21:34)
[2018-09-29] MEDS: LANOXIN PO SCH (09:41)
[2018-09-29] MEDS: LOPRESSOR PO SCH ×3 (09:41→21:04)
[2018-09-29] MEDS: NEURONTIN PO SCH (09:41)
[2018-09-29] MEDS: COLACE PO SCH (09:42)
[2018-09-29] MEDS: CARDIZEM CD PO SCH (09:42)
[2018-09-29] MEDS: BUMEX PO SCH ×2 (09:42→21:04)
[2018-09-29] MEDS: BASAGLAR SUBQ SCH ×2 (09:43→21:05)
[2018-09-29] MEDS: LOVENOX SUBQ SCH (14:52)
--- NOTE | 2018-09-29 17:39 | PROGRESS NOTE ---
DATE: 09/29/2018 Overnight no acute events. SUBJECTIVE: He is feeling fine denying any complaints. He states that he has not been using oxygen. He only uses oxygen when he getting his nebulization machine but otherwise he is not using oxygen however the chart suggests that he has been on 2 to 3 L nasal cannula. He denies chest pain or feeling short of breath, he states he has been able to walk in his corridor without too much trouble. VITAL SIGNS: Temperature of 98.1, pulse of 82 per minute, blood pressure of 135/69, saturating 93% on room air. OBJECTIVE: General: Morbidly obese does not appear in acute distress. Oral cavity is moist. Air entry bilaterally equal. No wheeze or rhonchi. Mild inspiratory crackles bilateral infrascapular region. S1, S2 normal. Systolic murmur affecting apex of the heart. No rub or gallop. Abdomen: Obese, soft, nontender. 2 to 3+ bilateral pitting pedal edema. LABS: No new labs today. His blood glucose has been mostly in acceptable range. No new microbiological data. Chest x-ray suggests improvement in pleural effusion, pulmonary edema as compared to previous chest x-rays on my review. ASSESSMENT AND PLAN: 1. Acute hypoxic respiratory failure because of acute on chronic diastolic heart failure exacerbation, acute chronic obstructive pulmonary disease exacerbation and bilateral multifocal pneumonia it has resolved. He is breathing well on room air as per the history given by the patient. I will confirm with the nursing staff about this. 2. Acute on chronic diastolic congestive heart failure exacerbation. Continue home bumetanide and current spironolactone. Continue metoprolol, Atorvastatin and aspirin. Follow up with [facility] tomorrow. 3. Acute chronic obstructive pulmonary disease exacerbation currently stable, continue albuterol ipratropium nebulization. 4. Bilateral multifocal pneumonia affecting base status post 14 days of ceftriaxone. 5. History of paroxysmal atrial fibrillation currently heart rate in acceptable range, continue diltiazem, digoxin and aspirin. He previously had history of gastrointestinal bleed, has not been anticoagulation. 6. Hypertension, continue amlodipine, diltiazem, metoprolol, bumetanide. 7. History of insulin-dependent diabetes mellitus. Continue current glargine and sliding scale dose, no more hypoglycemic episodes. 8. Coronary artery disease continue aspirin and statin. 9. Left knee injury from trauma prior to admission with MRI suggestive of left meniscal injury. Outpatient orthopedic followup. 10. Morbid obesity. Patient was counseled about regular physical activity. 11. Chronic pain, continue home gabapentin, low-dose [place]. 12. Disposition. Patient would either like to go home on home physical therapy or rehab by Sunday if the insurance is still pending, I will have evaluation for home oxygen. Plan of care were discussed with patient and all of his questions have been answered. cc: Laureano Villavicencio MD
[2018-09-29] MEDS: LIPITOR PO SCH (21:04)
[2018-09-30] MEDS: DUONEB (A & A) INH SCH ×6 (03:20→23:20)
[2018-09-30] MEDS: HUMULIN R SUBQ SCH ×4 (06:07→21:14)
[2018-09-30] MEDS: PRILOSEC PO SCH ×2 (06:10→21:10)
[2018-09-30 07:25] LABS: BASO# 0.02 X1000 (0.0-0.2); BASO% 0.4 % (0.0-0.8); EOS# 0.22 X1000 (0.0-0.7); HEMATOCRIT 32.4 % (42.0-52.0); HEMOGLOBIN 10.1 g/dL (14.0-18.0); IMM GRAN# 0.03 X1000 (0.0-0.04); IMM GRAN% 0.6 % (0.0-0.5); LYMPH# 0.94 X1000 (1.2-3.4); LYMPH% 17.3 % (20.5-51.1); MCHC 31.2 g/dL (33-37); MCV 86.6 FL (81-99); MONO# 0.37 X1000 (0.11-0.59); MONO% 6.8 % (1.7-9.3); MPV 10.1 FL (7.4-10.4); NEUT# 3.86 X1000 (1.4-6.5); NEUT% 70.9 % (42.2-75.2); PLT 239 X1000 (130-400); RBC 3.74 XMIL (4.7-6.1); RDW 16.1 % (11.5-14.5); WBC 5.44 X1000 (4.8-10.8)
[2018-09-30 07:48] LABS: CALCIUM 8.8 mg/dL (8.8-10.2); CREATININE 1.3 mg/dL (0.7-1.2); POTASSIUM 4.2 mmol/L (3.5-5.1)
[2018-09-30] MEDS: ALDACTONE PO SCH (09:13)
[2018-09-30] MEDS: COLACE PO SCH (09:13)
[2018-09-30] MEDS: LANOXIN PO SCH (09:13)
[2018-09-30] MEDS: MIRALAX PO SCH ×2 (09:13→21:11)
[2018-09-30] MEDS: BUMEX PO SCH ×2 (09:14→21:10)
[2018-09-30] MEDS: NEURONTIN PO SCH (09:14)
[2018-09-30] MEDS: CARDIZEM CD PO SCH (09:14)
[2018-09-30] MEDS: LOPRESSOR PO SCH ×3 (09:14→21:10)
[2018-09-30] MEDS: BASAGLAR SUBQ SCH ×2 (09:14→21:14)
[2018-09-30] MEDS: ASPIRIN PO SCH (09:14)
[2018-09-30] MEDS: NORVASC PO SCH (09:14)
[2018-09-30] MEDS: LOVENOX SUBQ SCH (15:00)
--- NOTE | 2018-09-30 18:37 | PROGRESS NOTE ---
DATE: 09/30/2018 Overnight, no acute events. SUBJECTIVE: He is feeling fine. He states he was able to come out of bed, walk in the hallway with use of a walker and did pretty good. However, he is worried that the physical therapy is not going to come by to help him tomorrow. We discussed about his disposition. The patient's daughter is at bedside and I also discussed plan of care. I answered all of her questions. OBJECTIVE: Vital signs: Temperature 97.6 degrees, pulse 93 per minute, blood pressure 150/68, saturating 95% on room air. General: Physical examination, does not appear in any acute distress. Morbidly obese. Oral cavity is moist. Lungs: Air entry bilaterally equal. No wheeze rhonchi or crackles, except mild infrascapular crackles. Cardiovascular: S1, S2 normal. Systolic murmur affecting apex of the heart. No rub or gallop. Abdomen: Obese, soft, nontender, 2 to 3+ pitting pedal edema. LABORATORY DATA: Labs today, suggestive of no leukocytosis. Hemoglobin, hematocrit, platelet within acceptable range. Baseline chronic kidney disease stage 3. Acceptable level of hyperglycemia. ASSESSMENT AND PLAN: 1. Acute hypoxic respiratory failure because of acute on chronic diastolic heart failure exacerbation, acute chronic obstructive pulmonary disease exacerbation, bilateral multifocal pneumonia. Now it is resolved. The patient is breathing well on room air. 2. Acute on chronic diastolic heart failure exacerbation. Continue home bumetanide and spironolactone. Continue metoprolol, aspirin and atorvastatin. He should discuss with his outpatient furnace charging machine operator about need for PARVIZ inhibitors or ARBs in the future. 3. Acute chronic obstructive pulmonary disease exacerbation, currently stable. Continue albuterol and ipratropium nebulization. 4. Bilateral multifocal pneumonia affecting bilateral base of the heart, status post 14 days of ceftriaxone. 5. History of paroxysmal atrial fibrillation, currently heart rate in acceptable range. Continue diltiazem, digoxin and aspirin. He previously had history of gastrointestinal bleed and is not on anticoagulation. 6. Hypertension. Continue amlodipine, diltiazem, metoprolol, bumetanide, and spironolactone. 7. History of insulin-dependent diabetes mellitus. Continue current sliding glargine and sliding scale insulin. 8. Coronary artery disease. Continue aspirin and statin. 9. Left knee injury from trauma prior to admission with MRI suggestive of left meniscal injury. Outpatient orthopedic followup. 10. Morbid obesity. Patient was counseled about regular physical activity. 11. Chronic pain. Continue home gabapentin, low-dose [place]. 12. Disposition. After extensive discussion with the patient and patient's daughter at bedside, we decided that the patient would like to remain inside the hospital until Sunday. He would like to assess his functional status on Sunday after physical therapy evaluation happens. At that point, he will make a decision whether he would be comfortable going home on home physical therapy, or he would like to wait until the rehab approval happens inside the hospital. cc: Laureano Villavicencio MD
[2018-09-30] MEDS: LIPITOR PO SCH (21:10)
[2018-09-30] MEDS: NORCO-5 PO PRN (21:17)
[2018-10-01] MEDS: DUONEB (A & A) INH SCH ×5 (04:30→19:25)
[2018-10-01] MEDS: PRILOSEC PO SCH ×2 (06:29→21:09)
[2018-10-01] MEDS: HUMULIN R SUBQ SCH ×4 (06:29→21:10)
[2018-10-01] MEDS: COLACE PO SCH (09:03)
[2018-10-01] MEDS: ALDACTONE PO SCH (09:03)
[2018-10-01] MEDS: CARDIZEM CD PO SCH (09:03)
[2018-10-01] MEDS: LANOXIN PO SCH (09:03)
[2018-10-01] MEDS: ASPIRIN PO SCH (09:03)
[2018-10-01] MEDS: NORVASC PO SCH (09:03)
[2018-10-01] MEDS: NEURONTIN PO SCH (09:04)
[2018-10-01] MEDS: BUMEX PO SCH ×2 (09:04→21:08)
[2018-10-01] MEDS: NORCO-5 PO PRN ×2 (09:04→21:06)
[2018-10-01] MEDS: BASAGLAR SUBQ SCH ×2 (09:04→21:14)
[2018-10-01] MEDS: MIRALAX PO SCH ×2 (09:04→21:09)
[2018-10-01] MEDS: LOPRESSOR PO SCH ×3 (09:04→21:09)
--- NOTE | 2018-10-01 14:53 | PROGRESS NOTE ---
DATE: 10/01/2018 OVERNIGHT: No acute events. SUBJECTIVE: He stated he did not eat his breakfast, but he ate all of his lunch. He denies any new complaints. We discussed about waiting for physical therapy tomorrow before deciding on further disposition. OBJECTIVE: Vital Signs: Currently vitals revealed temperature of 97.7 degrees, pulse of 80 per minute, blood pressure of 116/47. He is saturating 96% on 2 L nasal cannula. General appearance: On physical examination, does not appear in acute distress. Mouth: Oral cavity is moist. Lungs: Air entry bilaterally equal. Inspiratory crackles bilaterally in the infrascapular region. No wheeze or rhonchi. Heart: S1, S2 normal. Systolic murmur in mitral region. No rub or gallop. Abdomen: Obese, nontender. Extremities: There is 2+ to 3+ pitting pedal edema. Neurologic: Alert and oriented x3. He does appear morbidly obese. LABS: No new labs today. MICROBIOLOGY: No new microbiological data. IMAGING: Reports no new imaging today. ASSESSMENT AND PLAN: 1. Acute hypoxic respiratory failure because of acute on chronic diastolic heart failure exacerbation, acute chronic obstructive pulmonary disease exacerbation, bilateral multifocal pneumonia, now resolved. The patient is breathing well on room air most of the time. 2. Acute on chronic diastolic heart failure exacerbation, now resolved. Continue home bumetanide and spironolactone. Continue metoprolol, aspirin, statin. He should discuss with outpatient basting marker about need for PARVIZ inhibitors or ARB's in the future. 3. Acute chronic obstructive pulmonary disease exacerbation, currently stable. Continue albuterol ipratropium nebulization. 4. Bilateral multifocal pneumonia affecting bilateral base of the heart, status post 14 days of ceftriaxone, now resolved. 5. History of paroxysmal atrial fibrillation, currently heart rate in acceptable range. Continue diltiazem, digoxin aspirin. He is not on anticoagulation because of previous history of gastrointestinal bleed. 6. Hypertension, well controlled. Continue amlodipine, diltiazem, metoprolol. 7. History of insulin-dependent diabetes mellitus with fluctuating blood sugar levels. I encouraged him to eat small meals frequently. Continue current dose of glargine and sliding scale insulin. 8. Coronary artery disease. Continue aspirin and statin. 9. Left knee injury from trauma prior to admission with MRI suggestive of left meniscal injury. Outpatient Orthopedic followup. 10. Morbid obesity. Patient was counseled about regular physical activity. 11. Chronic pain. Continue home gabapentin, low-dose [place]. DISPOSITION: I will see the patient's functional status on October 02. If he still it needs significant support, the plan is to wait until insurance authorization for rehab happens. The patient will also discuss with his daughter and decide if the insurance authorization for rehab placement is going to take awhile, whether he would want to go home with home physical therapy. Plan of care was discussed with him. I also discussed with daughter at bedside plan of care yesterday. All of their questions have been answered. cc: Laureano Villavicencio MD
[2018-10-01] MEDS: LOVENOX SUBQ SCH (16:00)
--- NOTE | 2018-10-01 17:12 | Diag Imaging Result Doc PS360 ---
EXAM: CHEST-2 VIEWS INDICATION: dyspnea TECHNIQUE: 2 views COMPARISON: 09/29/2018 FINDINGS: Lung volumes are low. The left pleural effusion is approximately stable. Given differences in inspiration, pulmonary venous congestion and interstitial edema is approximately stable. No new consolidation is identified. Cardiac silhouette is stable. IMPRESSION: Lower lung volumes. Stable chest, otherwise. Electronically signed by Neno Mckeon 10/01/2018 5:09 PM
--- NOTE | 2018-10-01 20:45 | PULMONOLOGY PROGRESS NOTE ---
DATE: 10/01/2018 SUBJECTIVE: The patient is awake, alert and conversant. He reports he is getting stronger every day. He has no significant sputum production. OBJECTIVE: Vital Signs: The patient has been afebrile for the last 24 hours. Blood pressure 114/63, heart rate 81, respiratory rate 18, oxygen saturation 98% on 4 liters per nasal cannula. HEENT: Pupils are equal and reactive. Oropharynx is clear. Neck: Supple. Chest: Reveals prolonged expiratory phase with slightly decreased breath sounds in the left base. Cardiac: S1 and S2. Abdomen: Obese and soft. Extremities: Reveal chronic venous insufficiency. LABORATORIES: Chest x-ray reveals cardiomegaly, shallow lung volumes, vascular congestion with stable small left-sided pleural effusions. Chest x-ray is not changed from 09/29/2018. No new chemistries or CBC today. IMPRESSION: A 73-year-old with morbid obesity, untreated sleep apnea, transudative pleural effusions, chronic atrial fibrillation, and knee pain which has improved with an injection, with peripheral edema. He continues to improve and is anxious to be discharged either to rehab or to home with home rehab. RECOMMENDATIONS: 1. Continue diuretic regimen. 2. Anticipate oxygen at the time of discharge. 3. Room air arterial blood gas will be ordered for tomorrow. 4. Recommend outpatient sleep evaluation. 5. Ongoing weight loss is recommended. cc: Caleb Petty MD
[2018-10-01] MEDS: LIPITOR PO SCH (21:07)
[2018-10-02 05:21] LABS: ALLEN TEST YES; BLOOD TYPE ARTERIAL; HCO3-(ACT) 29.5 mmoll (20.0-26.0); METHB 1.1 % (0.0-1.5); O2(CT) 13.8 mL/dL (15.0-23.0); O2HB 92.4 % (95.0-99.0); PCO2(98.6) 38 mmHg (35-45); PO2(98.6) 66 mmHg (60-100); SAMPLE BLOOD; SAO2 95.8 % (95.0-100.0); THB 10.6 g/dL (11.5-17.4)
[2018-10-02 05:22] LABS: MODALITY ROOM AIR
[2018-10-02] MEDS: DUONEB (A & A) INH SCH ×3 (05:58→11:48)
[2018-10-02] MEDS: PRILOSEC PO SCH (06:14)
[2018-10-02] MEDS: HUMULIN R SUBQ SCH (06:14)
[2018-10-02 07:57] VITALS: BP 134/86
[2018-10-02] MEDS ORDERED: INSULIN PEN NEEDLES ONE (09:10)
[2018-10-02] MEDS: BUMEX PO SCH (09:28)
[2018-10-02] MEDS: LANOXIN PO SCH (09:28)
[2018-10-02] MEDS: NEURONTIN PO SCH (09:29)
[2018-10-02] MEDS: LOPRESSOR PO SCH (09:29)
[2018-10-02] MEDS: NORVASC PO SCH (09:29)
[2018-10-02] MEDS: CARDIZEM CD PO SCH (09:29)
[2018-10-02] MEDS: MIRALAX PO SCH (09:29)
[2018-10-02] MEDS: COLACE PO SCH (09:29)
[2018-10-02] MEDS: ALDACTONE PO SCH (09:29)
[2018-10-02] MEDS: BASAGLAR SUBQ SCH (09:33)
[2018-10-02] MEDS: ASPIRIN PO SCH (09:36)
[2018-10-02] MEDS: NORCO-5 PO PRN (09:39)
--- NOTE | 2018-10-02 11:51 | DISCHARGE SUMMARY ---
ADMISSION DATE: 09/10/2018 DISCHARGE DATE: ADDENDUM: I agree with components of discharge summary mentioned. I evaluated the patient at bedside. Today, he is denying any chest pain or shortness of breath. I conveyed to him that the insurance authorization for rehab transfer has been approved. We discussed about changes in insulin regimen and changes in his cardiovascular medication regimen, and that he should follow up with his regular doctors to reconcile medications appropriately and make necessary changes. His vitals suggest temperature of 97.9 degrees, pulse of 72 per minute. He is breathing at 20 per minute. He is saturating 94% on room air. On physical examination, he is morbidly obese. Air entry bilaterally equal. No wheeze, rhonchi or crackles. S1 and S2 normal. He has systolic murmur in the mitral region. Abdomen is soft and nontender. He has 2+ pitting pedal edema. His labs today are suggestive of PO2 of 66 on room air. His blood sugars were well controlled. ASSESSMENT AND PLAN: The patient will be discharged to rehab. He was admitted for acute hypoxic respiratory failure because of acute chronic obstructive pulmonary disease exacerbation, acute diastolic heart failure exacerbation, and pneumonia. He was treated with antibiotics, diuretics, and breathing treatments following which he got better. He was extensively advised about discharge instructions. All of his questions have been answered. cc: Laureano Villavicencio MD
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
== END 2018-10-02 14:49 | DRG 291 ==
LOC: ED 08:30 → SUATTDRO 16:50 → EDIPHOLD 16:50 → 3S 20:19 → 3N 09-18 23:58
PROVIDERS: ATTEND Internal Medicine
CPT/HCPCS: 32421; 32555; 71010; 71020; 71045; 71046; 71101; 71275; 73562; 73721; 76700; 80048; 80053; 80069; 81001; 82150; 82550; 82553; 82570; 82607; 82728; 82746; 82805; 82945; 82947; 82948; 83036; 83540; 83550; 83615; 83735; 83880; 83986; 84156; 84157; 84443; 84484; 85025; 85027; 85379; 85610; 85730; 87040; 87070; 88112; 88305; 89051; 93005; 93010; 93306; 94640; 94760; 94761; 94799; 96372; 96374; 96375; 97110; 97116; 97163; 97530; 99285; A9270; C8929; J0696; J1650; J1815; J1885; J1940; J2270; Q9957; Q9967; XXXXX

== ENCOUNTER 2018-10-23 11:02 | Inpatient (IN) ==
[2018-10-23] MEDS ORDERED: LASIX IV ONE ×2 (11:03→13:04)
[2018-10-23 11:16] LABS: ALLEN TEST YES; BE -4.5 mmoll (-3.0-3.0); BLOOD TYPE ARTERIAL; HCO3-(ACT) 21.2 mmoll (20.0-26.0); METHB 1.2 % (0.0-1.5); O2(CT) 14.1 mL/dL (15.0-23.0); PCO2(98.6) 40 mmHg (35-45); PO2(98.6) 66 mmHg (60-100); SAMPLE BLOOD; THB 11.4 g/dL (11.5-17.4); pH(98.6) 7.33 (7.35-7.45)
[2018-10-23 11:19] LABS: MODALITY NRB; O2HB 87.9 % (95.0-99.0)
[2018-10-23] MEDS ORDERED: ROCEPHIN 1 GM in NS 50 ML IV ONE (11:22)
[2018-10-23] MEDS ORDERED: DUONEB (A & A) INH ONE (11:25)
[2018-10-23 11:26] LABS: BASO# 0.04 X1000 (0.0-0.2); BASO% 0.3 % (0.0-0.8); EOS# 0.09 X1000 (0.0-0.7); EOS% 0.6 % (0.0-10.0); HEMATOCRIT 36.7 % (42.0-52.0); HEMOGLOBIN 11.4 g/dL (14.0-18.0); IMM GRAN# 0.21 X1000 (0.0-0.04); IMM GRAN% 1.4 % (0.0-0.5); LYMPH# 1.59 X1000 (1.2-3.4); LYMPH% 10.9 % (20.5-51.1); MCH 26.8 PG (27-31); MCHC 31.1 g/dL (33-37); MCV 86.2 FL (81-99); MONO# 0.96 X1000 (0.11-0.59); MONO% 6.6 % (1.7-9.3); MPV 10.2 FL (7.4-10.4); NEUT# 11.68 X1000 (1.4-6.5); NEUT% 80.2 % (42.2-75.2); PLT 271 X1000 (130-400); RBC 4.26 XMIL (4.7-6.1); WBC 14.57 X1000 (4.8-10.8)
[2018-10-23 11:36] LABS: URINE SOURCE CATH
[2018-10-23 11:39] LABS: INR 1.18
[2018-10-23 11:40] LABS: PTT 34.8 Seconds (22.3-41.8)
[2018-10-23 11:41] LABS: BILIRUBIN URINE NEGATIVE (NEGATIVE); BLOOD URINE MODERATE (NEGATIVE); COLOR YELLOW; GLUCOSE URINE NEGATIVE (NEGATIVE); KETONE URINE NEGATIVE (NEGATIVE); LEUKOCYTES URINE NEGATIVE (NEGATIVE); NITRITE URINE NEGATIVE (NEGATIVE); PH URINE 6.5; PROTEIN URINE 200 mg/dL (NEGATIVE); SP GRAVITY URINE 1.012; TURBIDITY URINE CLEAR (CLEAR); UROBILINOGEN URINE NORMAL (NORMAL)
[2018-10-23 11:42] LABS: UR EPITHELIAL CELLS <10 /HPF (<10); URINE BACTERIA NEGATIVE /HPF; URINE RBC 20-40 /HPF (<10); URINE WBC <10 /HPF (<10)
[2018-10-23 11:55] LABS: D-DIMER 3.13 ug/mLFEU (0.0-0.52)
--- NOTE | 2018-10-23 12:06 | EKG Report ---
Test Performed on : 10/23/2018 11:06:01 AM Test Reason : sob Blood Pressure : / mmHG Vent. Rate : 110 BPM Atrial Rate : 163 BPM P-R Int : 000 ms QRS Dur : 086 ms QT Int : 334 ms P-R-T Axes : 000 -28 163 degrees QTc Int : 452 ms Atrial fibrillation. with rapid ventricular response. Low voltage QRS ST & T wave abnormality, consider anterolateral ischemia Abnormal ECG When compared with ECG of 23-OCT-2018 11:01, (Unconfirmed) Inverted T waves have replaced nonspecific T wave abnormality in Anterior leads Unconfirmed Result
--- NOTE | 2018-10-23 12:28 | Diag Imaging Result Doc PS360 ---
EXAM: CHEST-1 VIEW INDICATION: sob TECHNIQUE: One view COMPARISON: 10/01/2018 FINDINGS: There are fairly dense infiltrates in the perihilar and lower lung zones bilaterally indicating pulmonary edema +/- pneumonia. This is worse than the previous study. There is pulmonary venous congestion. There is a left pleural effusion that is moderate in size that was also seen on the previous study. Cardiac silhouette is stable. IMPRESSION: Fairly dense infiltrates bilaterally as described indicating pulmonary edema +/- pneumonia as well as a moderate-sized left pleural effusion. Electronically signed by Neno Mckeon 10/23/2018 12:25 PM
[2018-10-23 12:45] LABS: ALB/GLOB RATIO 0.8; ALBUMIN 3.1 g/dL (3.5-5.0); CALCIUM 8.1 mg/dL (8.8-10.2); CREATININE 1.7 mg/dL (0.7-1.2); POTASSIUM 4.9 mmol/L (3.5-5.1); TOTAL BILIRUBIN 0.98 mg/dL (0.20-1.00); TOTAL PROTEIN 6.9 g/dL (6.3-8.3)
[2018-10-23] MEDS ORDERED: NS 1,000 ML IV ONE (13:01)
--- NOTE | 2018-10-23 13:19 | PROVIDER DOCUMENTATION ---
This chart was entered by Socorro Schumacher Scribe, acting as scribe for Neeta Keys MD. HPI-Respiratory General - General Stated Complaint: RESPIRATORY DISTRESS Time Seen by Provider: 10/23/18 11:03 Source: EMS Allergies/Adverse Reactions: Patient Allergies Allergy/AdvReac Type Severity Reaction Status Date / Time latex Allergy HIVES Verified 02/22/18 07:03 Sulfa (Sulfonamide Allergy VOMITING Verified 02/22/18 07:03 Antibiotics) Home Medications: Home Medication List Medication Instructions Recorded Confirmed Last Taken Type Aspirin 81 mg PO DAILY #0 chewtab 10/11/15 09/10/18 09/09/18 08:00 Rx ATORVAstatin [Lipitor] 20 mg PO QHS 02/22/18 09/10/18 09/09/18 08:00 History Bumetanide 2 mg PO BID 02/22/18 09/10/18 09/09/18 08:00 History Gabapentin 100 mg PO DAILY 02/22/18 09/10/18 09/09/18 08:00 History Metoprolol Tartrate 50 mg PO BID 09/10/18 09/10/18 09/09/18 08:00 History Albuterol 2.5MG/Ipratrop 0.5MG 3 ml INH RTQ4H neb 10/02/18 Unknown Rx [Duoneb (A & A)] Amlodipine [Norvasc] 10 mg PO DAILY tablet 10/02/18 Unknown Rx Digoxin [Lanoxin] 125 microgm PO DAILY tablet 10/02/18 Unknown Rx Diltiazem C.d. [Cardizem Cd] 240 mg PO DAILY capsule 10/02/18 Unknown Rx Docusate Sodium [Colace] 100 mg PO DAILY capsule 10/02/18 Unknown Rx Insulin Glargine [Basaglar] 50 unit SUBQ BID insuln.pen 10/02/18 Unknown Rx Omeprazole [Prilosec] 20 mg PO BID@0700,2100 capsule 10/02/18 Unknown Rx Polyethylene Glycol 3350 [Miralax] 17 gm PO BID powder, packet 10/02/18 Unknown Rx Spironolactone [Aldactone] 25 mg PO DAILY tablet 10/02/18 Unknown Rx - History of Present Illness-Resp Nature of Presenting Problem: Patient is a 73 year old male who presents to the ED via EMS with respiratory distress. EMS states patient's O2 sat was 59 % on their arrival. Patient's O2 sat was 89 % on non rebreather at 15 L on arrival to ED. EMS states patient stated shortness of breath started last night and worsened. Patient denies chest pain. history of s/p fall, s/p rehab and home 1 week ago. since then his fluid retention is worsening. family member with strep + Quality of Pain: reports: tightness Severity in ED: reports: severe Onset/Duration: reports: last night Timing: reports: still present, getting worse Current Respiratory Medication Therapy: Initiated see nurses note Associated Symptoms: reports: shortness of breath Similar Symptoms Previously?: Yes (present since last night) Recently seen or treated by another doctor?: No Review of Systems - Adult - REVIEW OF SYSTEMS - ADULT ROS:: limited per condition Constitutional: reports: no symptoms reported Eyes: reports: no symptoms reported Ears, Nose, Mouth & Throat: reports: no symptoms reported Cardiovascular: reports: no symptoms reported Respiratory: reports: shortness of breath. denies: cough, wheezing Gastrointestinal: reports: no symptoms reported Genitourinary: reports: no symptoms reported Musculoskeletal: reports: no symptoms reported Integumentary: reports: no symptoms reported Neurological: reports: no symptoms reported Psychiatric: reports: no symptoms reported Endocrine: reports: no symptoms reported Hematologic/Lymphatic: reports: no symptoms reported Allergic/Immunologic: reports: no symptoms reported All Other Systems: Reviewed and Negative Past History - Adult - PAST MEDICAL HISTORY-ADULT Review of Records: reports: Nursing Assessment Review, Medications Reviewed, Social history reviewed & non-contributory. Major Childhood Illnesses: reports: denies history Cardiovascular: reports: A-Fib, CAD (with stent), CHF, HTN, hyperlipidemia Respiratory: reports: COPD, sleep apnea Gastrointestinal: reports: GI bleed, other (hiatal hernia) Obstetrical/Gynecological: reports: denies history Genitourinary: reports: denies history Musculoskeletal: reports: arthritis, other (weakness, chronic) Neurological: reports: denies history Endocrine/Immune: reports: Diabetes Diabetes Type: Type 2 Other Conditions: reports: denies history - PRIOR SURGERIES/PROCEDURES Surgical/Procedure History: reports: EGD, cardiac stent, bowel surgery - IMMUNIZATION STATUS Childhood Immunizations: See Nurse Assessment Flu Vaccine: See Nurse Assessment - FAMILY HISTORY Family History: reviewed, not pertinent - SOCIAL HISTORY Smoking: cigarettes (former) Substance Use: alcohol Alcohol Use Frequency: occasionally Living Situation: family Physical Exam-General - PHYSICAL EXAM-ADULT Initial Vital Signs Reviewed: Yes - CONSTITUTIONAL General Appearance: alert, moderate distress, obese - EYES Eyes: PERRL/EOMI, pink conjunctivae, other (periorbital edema bilaterally) - HEAD, EARS, NOSE, MOUTH & THROAT HENMT: normocephalic/atraumatic - NECK Neck: non-tender, full range of motion - RESPIRATORY Respiratory: respiratory distress, decreased breath sounds (bilateral), accessory muscle use, increased rate - CARDIOVASCULAR Cardiovascular: tachycardia - GASTROINTESTINAL (ABDOMEN) Abdominal Exam: normal bowel sounds, non tender - MUSCULOSKELETAL Back Exam: normal inspection Extremity: swelling (bilateral hands, periorbital), other (2 + pitting edema to bilateral lower extremities) - SKIN Integumentary: normal color, normal turgor, warm/dry - NEUROLOGIC Neurologic: grossly normal, no motor/sensory deficits, other (unable to assess per patient's condition) - PSYCHIATRIC Psych/Mental Status: normal mood/affect, normal thought content, normal thought process, oriented x 3 Progress - PLAN OF CARE/RESULTS Progress/Plan/Lab Results: Vital Signs - 8 hr 10/23/18 11:14 10/23/18 11:19 10/23/18 11:28 Temperature Pulse Rate 115 H 102 H 103 H Respiratory Rate 46 H 43 H 41 H Blood Pressure 172/78 149/56 O2 Sat by Pulse Oximetry 92 L 90 L 92 L 10/23/18 11:32 10/23/18 11:37 10/23/18 11:40 Temperature Pulse Rate 104 H 95 H 105 H Respiratory Rate 42 H 33 H 38 H Blood Pressure 99/56 103/38 O2 Sat by Pulse Oximetry 92 L 92 L 95 10/23/18 11:47 10/23/18 12:00 10/23/18 12:02 Temperature Pulse Rate 110 H 109 H 105 H Respiratory Rate 37 H 38 H 29 H Blood Pressure 156/73 160/71 O2 Sat by Pulse Oximetry 96 93 L 93 L 10/23/18 12:03 10/23/18 12:32 10/23/18 12:33 Temperature 100.6 F H Pulse Rate 105 H 105 H 105 H Respiratory Rate 36 H 33 H 32 H Blood Pressure 148/75 148/75 O2 Sat by Pulse Oximetry 92 L 93 L 92 L 10/23/18 13:00 10/23/18 13:01 10/23/18 13:02 Temperature Pulse Rate 105 H 107 H 105 H Respiratory Rate 34 H 33 H 33 H Blood Pressure 173/69 O2 Sat by Pulse Oximetry 92 L 93 L 94 L 10/23/18 13:32 Temperature Pulse Rate 107 H Respiratory Rate 33 H Blood Pressure 157/97 O2 Sat by Pulse Oximetry 95 10/23/18 11:35 Influenza Screen - Final Nasopharyngeal 10/23/18 11:35 Group A Strep Rapid Antigen - Final Throat Laboratory Results - last 24 hr 10/23/18 10/23/18 10/23/18 11:01 11:10 11:10 WBC 14.57 H RBC 4.26 L Hgb 11.4 L Hct 36.7 L MCV 86.2 MCH 26.8 L MCHC 31.1 L RDW Std Deviation 16.0 H Plt Count 271 MPV 10.2 Immature Gran % (Auto) 1.4 H Neut % (Auto) 80.2 H Lymph % (Auto) 10.9 L Leon % (Auto) 6.6 Eos % (Auto) 0.6 Baso % (Auto) 0.3 Immature Gran # (Auto) 0.21 H Neut # (Auto) 11.68 H Lymph # (Auto) 1.59 Leon # (Auto) 0.96 H Eos # (Auto) 0.09 Baso # (Auto) 0.04 PT INR PTT (Actin FS) D-Dimer, Quantitative Specimen Type ARTERIAL Sample Site R RADIAL pH 7.33 L pCO2 40 pO2 66 HCO3 21.2 Base Excess -4.5 L Oxyhemoglobin 87.9 L* ABG O2 Sat (Calculated) 14.1 L ABG O2 Saturation 92.0 L ABG Carboxyhemoglobin 3.30 H ABG Methemoglobin 1.2 Quentin Test YES A-a O2 Difference 597.0 Total Hemoglobin 11.4 L Lactate 4.60 H Liter Flow 15.0 Blood Gas Modality NRB FiO2 % 100.0 Sodium 140 Potassium 4.9 Chloride 100 Carbon Dioxide 19 L Anion Gap 21 BUN 21 Creatinine 1.7 H Estimated GFR/1.73 m2 40 BUN/Creatinine Ratio 12 Glucose 262 H Calculated Osmolality 291 Calcium 8.1 L Total Bilirubin 0.98 AST 26 ALT 14 Alkaline Phosphatase 119 Creatine Kinase 198 Troponin T Dcb-F-Palfhaakpzp Pept Total Protein 6.9 Albumin 3.1 L Globulin 3.8 Albumin/Globulin Ratio 0.8 Plasma Lactate Urine Source Urine Color Urine Turbidity Urine pH Ur Specific [place] Urine Protein Ur Glucose (Stick) Ur Ketones (Stick) Urine Blood Urine Nitrite Urine Bilirubin Urobilinogen Dipstick Urine Leukocytes Urine WBC (Auto) Urine RBC (Auto) U Epithel Cells (Auto) Urine Bacteria (Auto) 10/23/18 10/23/18 10/23/18 11:10 11:10 11:10 WBC RBC Hgb Hct MCV MCH MCHC RDW Std Deviation Plt Count MPV Immature Gran % (Auto) Neut % (Auto) Lymph % (Auto) Leon % (Auto) Eos % (Auto) Baso % (Auto) Immature Gran # (Auto) Neut # (Auto) Lymph # (Auto) Leon # (Auto) Eos # (Auto) Baso # (Auto) PT 16.0 INR 1.18 PTT (Actin FS) 34.8 D-Dimer, Quantitative 3.13 H Specimen Type Sample Site pH pCO2 pO2 HCO3 Base Excess Oxyhemoglobin ABG O2 Sat (Calculated) ABG O2 Saturation ABG Carboxyhemoglobin ABG Methemoglobin Quentin Test A-a O2 Difference Total Hemoglobin Lactate Liter Flow Blood Gas Modality FiO2 % Sodium Potassium Chloride Carbon Dioxide Anion Gap BUN Creatinine Estimated GFR/1.73 m2 BUN/Creatinine Ratio Glucose Calculated Osmolality Calcium Total Bilirubin AST ALT Alkaline Phosphatase Creatine Kinase Troponin T 0.042 Pyi-L-Benkexospbw Pept 3719 H Total Protein Albumin Globulin Albumin/Globulin Ratio Plasma Lactate Urine Source Urine Color Urine Turbidity Urine pH Ur Specific [place] Urine Protein Ur Glucose (Stick) Ur Ketones (Stick) Urine Blood Urine Nitrite Urine Bilirubin Urobilinogen Dipstick Urine Leukocytes Urine WBC (Auto) Urine RBC (Auto) U Epithel Cells (Auto) Urine Bacteria (Auto) 10/23/18 10/23/18 11:10 11:16 WBC RBC Hgb Hct MCV MCH MCHC RDW Std Deviation Plt Count MPV Immature Gran % (Auto) Neut % (Auto) Lymph % (Auto) Leon % (Auto) Eos % (Auto) Baso % (Auto) Immature Gran # (Auto) Neut # (Auto) Lymph # (Auto) Leon # (Auto) Eos # (Auto) Baso # (Auto) PT INR PTT (Actin FS) D-Dimer, Quantitative Specimen Type Sample Site pH pCO2 pO2 HCO3 Base Excess Oxyhemoglobin ABG O2 Sat (Calculated) ABG O2 Saturation ABG Carboxyhemoglobin ABG Methemoglobin Quentin Test A-a O2 Difference Total Hemoglobin Lactate Liter Flow Blood Gas Modality FiO2 % Sodium Potassium Chloride Carbon Dioxide Anion Gap BUN Creatinine Estimated GFR/1.73 m2 BUN/Creatinine Ratio Glucose Calculated Osmolality Calcium Total Bilirubin AST ALT Alkaline Phosphatase Creatine Kinase Troponin T Dph-I-Cbbdqmnnayu Pept Total Protein Albumin Globulin Albumin/Globulin Ratio Plasma Lactate 5.0 H Urine Source CATH Urine Color YELLOW Urine Turbidity CLEAR Urine pH 6.5 Ur Specific [place] 1.012 Urine Protein 200 A Ur Glucose (Stick) NEGATIVE Ur Ketones (Stick) NEGATIVE Urine Blood MODERATE A Urine Nitrite NEGATIVE Urine Bilirubin NEGATIVE Urobilinogen Dipstick NORMAL Urine Leukocytes NEGATIVE Urine WBC (Auto) <10 Urine RBC (Auto) 20-40 A U Epithel Cells (Auto) <10 Urine Bacteria (Auto) NEGATIVE Orders Category Date Time Status Cardiac Monitoring DIRECTED Care 10/23/18 11:01 Active Oxygen Therapy- ED Nursing DIRECTED Care 10/23/18 11:01 Active Saline Loc NOW Care 10/23/18 11:01 Active CHEST-1 VIEW [RAD] Stat Exams 10/23/18 11:[address] ANGIOGRM PULMONARY ARTERIES [CT] Stat Exams 10/23/18 11:04 Ordered ABG [RESP] Routine Lab 10/23/18 11:01 Completed BLOOD CULTURE [BLDCUL] Stat Lab 10/23/18 11:06 Results CBC WITH ELECTRONIC DIFF [HEME] Stat Lab 10/23/18 11:10 Completed CK PROFILE [SP CHEM] Stat Lab 10/23/18 11:10 Completed COMPREHENSIVE METABOLIC PANEL [CHEM] Stat Lab 10/23/18 11:10 Completed D-DIMER [COAG] Stat Lab 10/23/18 11:10 Completed DIRECT STREP Stat Lab 10/23/18 11:35 Completed Flu Swab [INFLUENZA SCREEN A/B] Stat Lab 10/23/18 11:35 Completed LACTATE, PLASMA [CHEM] Stat Lab 10/23/18 11:10 Completed LACTATE, PLASMA [CHEM] Stat Lab 10/23/18 15:00 Uncollected PRO B-NATRIURETIC PEPTIDE Stat Lab 10/23/18 11:10 Completed PROTIME WITH INR [COAG] Stat Lab 10/23/18 11:10 Completed PTT [COAG] Stat Lab 10/23/18 11:10 Completed TROPONIN T Stat Lab 10/23/18 11:10 Completed URINALYSIS W/POSS RFLX CULT [URINALYSIS] Stat Lab 10/23/18 11:16 Completed 0.9% Sodium Chloride Inj [Ns] 1,000 ml Med 10/23/18 13:01 Discontinued IV Wide Open Albuterol 2.5MG/Ipratrop 0.5MG [Duoneb (A & A)] Med 10/23/18 11:25 Discontinued 3 ml INH NOW ONE CefTRIAXONE [Rocephin] 1 gm Med 10/23/18 11:22 Discontinued 0.9% Sodium Chloride Inj [Ns] 50 ml IV NOW Furosemide [Lasix] Med 10/23/18 11:03 Discontinued 40 mg IV NOW ONE Furosemide [Lasix] Med 10/23/18 13:04 Discontinued 40 mg IV NOW ONE Aerosol Treatments Routine Oth 10/23/18 11:25 Completed Aerosol Treatments Stat Oth 10/23/18 11:25 Completed CP/SOB/Palp >45 yrs of Age Stat Oth 10/23/18 11:01 Ordered EKG [EKG] Stat Ther 10/23/18 11:01 Draft Transfer/Admit Order [TRANSFER] Routine Transfer 10/23/18 13:33 Ordered Result Diagrams: 10/23/18 11:10 10/23/18 11:10 - REASSESSMENT Reassessment #1 Time Reassessed: 11:57 (pt came in with chf exacerbation with hypoxia. s/p furosemide 40mg treatment pt immediately improving. cxr showed pulm castillo/ pleural effusion vs PNA. lactate elevated. given sepsis criteria met. however clinically patient improving. admitting doctor also informed. barratte operator also not recommended of fluid bolus at this present time given chf exacerbation. ) Status: improving - EKG 1 Time of EKG reading by physician:: 11:01 EKG Read and Signed by:: Francisco Park EKG Interpretation (*Must complete 3 of following elements*): Abnormal (ST & T wave abnormality, consider lateral ischemia) Rate: 110 Rhythm: atrial fibrillation with rapid ventricular response Comments: low voltage QRS; cannot rule out anterior infarct, age undetermined 2 Time of EKG reading by physician:: 11:06 EKG Read and Signed by:: Francisco Park EKG Interpretation (*Must complete 3 of following elements*): Abnormal Rate: 110 Rhythm: atrial fibrillation with rapid ventricular response Comments: low voltage QRS; ST & T wave abnormality, consider anterolateral ischemia - XRAY 1 XRAY Study: Chest Impression: See EMR Report (EXAM: CHEST-1 VIEW INDICATION: sob TECHNIQUE: One view COMPARISON: 10/01/2018 FINDINGS: There are fairly dense infiltrates in the perihilar and lower lung zones bilaterally indicating pulmonary edema +/- pneumonia. This is worse than the previous study. There is pulmonary venous congestion. There is a left pleural effusion that is moderate in size that was also seen on the previous study. Cardiac silhouette is stable. IMPRESSION: Fairly dense infiltrates bilaterally as described indicating pulmonary edema +/- pneumonia as well as a moderate-sized left pleural effusion. Electronically signed by Neno Mckeon 10/23/2018 12:25 PM 1225 Interpreting Physician: Neno Mckeon MD Dictated Date/Time: 1223 cc: Neeta Keys MD; Celia Segovia) - CONSULTS/PCP/HOSPITALIST Notification #1 *Consult/PCP/Hospitalist*: ALEJANDRA Hoyos for Hospitalist Time Discussed: 13:08 (resp failure with hypoxia, chf exac, sepsis, acute renal failure) Reason/Comments: Dr. Keys consulted with Romain about patient. Consult Disposition: Admit Departure - Departure Date of Disposition Decision: 10/23/18 Time of Disposition Decision: 13:13 DIAGNOSIS: Atrial fibrillation with rapid ventricular response, Respiratory failure with hypoxia, Acute renal failure, Sepsis, Acute exacerbation of CHF (congestive heart failure) Disposition: ADMITTED INPATIENT 09 Certified Medical Emergency: Emergent Condition: Stable Referrals and Follow-Ups: Celia Segovia CRNP [Primary Care Provider] - - Critical Care Note This patient required my direct & personal management of CC.: No Attestation - Physician/ OLIVER Attestation Patient care was provided by Advanced Practice Provider:: No The physician spent face to face time with patient:: Yes Advanced Practice Provider documentation review:: Supervising physician onsite and consulted in the evaluation and care of this patient. The physician did have a face to face encounter with the patient. This chart was documented by the indicated scribe, (Socorro Schumacher Scribe) and accurately reflects the services I performed and decisions made by me, Neeta Keys MD, as attested by the provider's signature.
--- NOTE | 2018-10-23 14:44 | Diag Imaging Result Doc PS360 ---
CT ANGIOGRM PULMONARY ARTERIES - 10/23/2018 INDICATION: sob TECHNIQUE: Axial CT images were obtained after administering intravenous contrast. Coronal MIP images were generated. COMPARISON: 09/10/2018 FINDINGS: There is no visible pulmonary embolism. There is significant cardiomegaly and advanced coronary artery disease. There are moderate bilateral pleural effusions. There are dense bilateral infiltrates. There are several stable rib deformities of the posterior right rib cage. IMPRESSION: Negative for pulmonary embolism. Congestive heart failure. This exam was performed using automated exposure control, adjustment of mA or kV according to patient size, and/or use of iterative reconstruction technique Electronically signed by Prashanth Valerio 10/23/2018 2:42 PM
[2018-10-23] MEDS: XOPENEX NEB INH SCH ×3 (15:00→23:26)
[2018-10-23] MEDS ORDERED: XOPENEX NEB INH PRN (15:22)
[2018-10-23] MEDS ORDERED: SODIUM CHLORIDE 0.9% INJ SCH (15:30)
[2018-10-23 16:12] LABS: ALLEN TEST NO; BE 1.3 mmoll (-3.0-3.0); BLOOD TYPE ARTERIAL; HCO3-(ACT) 25.9 mmoll (20.0-26.0); METHB 1.3 % (0.0-1.5); O2(CT) 14.4 mL/dL (15.0-23.0); O2HB 93.6 % (95.0-99.0); PCO2(98.6) 40 mmHg (35-45); PO2(98.6) 82 mmHg (60-100); SAMPLE BLOOD; SAO2 97.4 % (95.0-100.0); THB 10.9 g/dL (11.5-17.4); pH(98.6) 7.42 (7.35-7.45)
[2018-10-23 16:15] LABS: MODALITY NRB
--- NOTE | 2018-10-23 16:41 | HISTORY AND PHYSICAL ---
PRIMARY CARE PHYSICIAN: ALEJANDRA Ricardo CHIEF COMPLAINT: Shortness of breath. HISTORY OF PRESENT ILLNESS: Mr. Ramirez is a 73-year-old male with a history of coronary artery disease, chronic atrial fibrillation, diastolic heart failure, hypertension, diabetes, morbid obesity, CKD, who presents with acute onset of dyspnea that woke him up this morning at around midnight. He woke up with shortness of breath but no chest pain, no abdominal pain, no nausea or vomiting, no fever. He also denies any cough. He mainly just reports shortness of breath that is significantly worse when lying flat. He is also complaining of worsening lower extremity edema. Reports in the chart that when he got into the ambulance, his O2 saturations were in the low 60s. When he got to the ER, he was 89%, 100% nonrebreather. Laboratory data shows that he has an elevated white count at 15. He is hypoxic on blood gas, and he has a lactic acid of 5. He also has a low grade fever, tachycardia, and tachypnea. Given the hypoxia, respiratory failure, will place history in the ICU for further treatment and evaluation. PAST MEDICAL HISTORY: 1. Coronary artery disease. 2. Chronic atrial fibrillation. 3. Diastolic heart failure, ejection fraction 55%. 4. History of GI bleeding. 5. CKD, stage 3. 6. Type 2 diabetes mellitus. 7. GERD. 8. History of possible asbestos exposure. 9. History of transudative pleural effusion status post thoracentesis, negative for malignancy. 10.Morbid obesity. 11.Chronic anemia. PAST SURGICAL HISTORY: 1. He has had colon resection. 2. Coronary stent. 3. Thoracentesis in the past. SOCIAL HISTORY: No tobacco, alcohol, or drug use. FAMILY HISTORY: Noncontributory. REVIEW OF SYSTEMS: A 14-point review of systems obtained by me negative with the exception of the HPI. ALLERGIES: Latex and sulfa. HOME MEDICATIONS: 1. Bumex 2 mg p.o. b.i.d. 2. Cartia XT 240 mg in the morning. 3. Neurontin 100 mg p.o. nightly. 4. Lantus 50 units subcu b.i.d. 5. Metoprolol 50 mg p.o. in the morning. 6. Norvasc 10 mg daily. 7. Aspirin 81 mg daily. 8. Lanoxin 125 mcg daily. 9. Colace 100 mg daily. 10.Prilosec 20 mg b.i.d. 11.Aldactone 25 mg p.o. daily. PHYSICAL EXAMINATION: VITAL SIGNS: Blood pressure 114/57, heart rate 79, respiratory rate 28, O2 saturation 95% on 100% nonrebreather, temperature 99 degrees Fahrenheit. GENERAL: Morbidly obese male lying in the hospital bed in mild to moderate respiratory distress. NEUROLOGIC: Awake and alert. Follows commands. No focal deficits. HEENT: Head is atraumatic, normocephalic. Pupils are equal, round and reactive to light. Oral mucosa is moist. Trachea midline. CHEST: Decreased with bibasilar crackles bilaterally. She is tachy and irregular. S1 and S2 noted. ABDOMEN: Soft, nondistended, nontender. Bowel sounds are active. EXTREMITIES: 1-2+ pitting edema bilaterally. Pulses are diminished but palpable in both lower extremities. DIAGNOSTIC DATA: Pulmonary arteriogram shows significant cardiomegaly, advanced coronary artery disease, moderate bilateral pleural effusion, dense bilateral infiltrates. Chest x-ray shows fairly dense infiltrates bilaterally indicating pulmonary edema, +/- pneumonia as well moderate sized left pleural effusion. EKG shows atrial fibrillation with RVR, low voltage, nonspecific ST and T abnormalities. WBC 14.57, hemoglobin 11.4, hematocrit 36.7, platelet count 271. INR 1.18. D- dimer 3.13. ABG on 100% nonrebreather, pH 7.33, CO2 40, O2 66, bicarbonate 21.2, oxyhemoglobin 87.9 , lactic acid 4.6. Sodium 140, potassium 4.9, chloride 100, CO2 19, anion gap 21, BUN 21, creatinine 1.7, glucose 262, calcium 8.1, bilirubin 0.98, AST 26, ALT 14, alkaline phosphatase 119. Troponin 0.042. ProBNP 3719. Albumin 3.1, lactic acid 5. ASSESSMENT AND PLAN: 1. Acute hypoxic respiratory failure: The patient appears to have a combination of congestive heart failure exacerbation, likely diastolic in nature, and pneumonia as well. He has been given Lasix in the ER but he was also given some fluid for sepsis. We are going to recheck another ABG now and likely switch him over to BiPAP. Continue Xopenex breathing treatments, aggressive pulmonary toilet, obtain sputum cultures and consult pulmonary. 2. Healthcare associated pneumonia: The patient has low grade fever, white count, tachycardia, lactic acidosis. Will put him on cefepime and Zyvox breathing treatments and consult Pulmonary. Check chest x-ray and ABGs daily. 3. Acute on chronic diastolic heart failure: He has been given Lasix. Will hold Lasix until at least for now given the kidney function. Follow strict I's and O's, daily weights. Trend his cardiac enzymes. Follow telemetry. 4. Chronic atrial fibrillation: His rate is essentially stable. He denies any chest pain. Will continue all of the same medications he is on at home with regards to rate control. 5. Chronic kidney disease: Baseline stage 3. He is a little bit higher today. He did receive 80 mg of Lasix and had a CTA of the chest done in the ER, so will need to be quite cautious of his renal function. Will monitor closely. Make any adjustments to medications as necessary and consult Nephrology if any worsening is noted. 6. Diabetes mellitus: Continue to pattern sugars, sliding scale insulin. 7. Sepsis: The patient meets criteria with pneumonia as the likely source. Please see numbers 1 and 2. Will trend his lactate and continue broad spectrum antibiotics, and monitor cultures for culture and sensitivity. 8. Deep venous thrombosis prophylaxis with Lovenox, renally dosed. Further recommendations to follow. Patient seen and examined by me face to face, all the laboratory, vitals signs and images were reviewed, Patient brought to the emergency department due to shortness of breath, he was recently discharged from this hospital, he has pneumonia, pleural effusion, physical exam showed bilateral decreased breath sounds with crackles, some wheezing, he is weak also, pulmonary department will be consulted, we will start broad coverage with antibiotics, diuretics, breathing treatment, oxygen, and ICU monitoring, we will do daily blood work, images, telemetry, I agree with the SLASHER RUNNER's assessment and plan, Baron Goss MD Dictated by ALEJANDRA Phelps for Baron Cisneros MD cc: ALEJANDRA Phelps MD [facility]
[2018-10-23] MEDS: PROTONIX IV SCH (17:58)
[2018-10-23] MEDS: MAXIPIME 1 GM in NS 50 ML IV SCH (17:58)
[2018-10-23] MEDS: ZYVOX 600 MG/D5W 600 MG/300 ML IVPB IV SCH (18:18)
[2018-10-23] MEDS ORDERED: LASIX IV STA (19:08)
[2018-10-23] MEDS ORDERED: LASIX 200 MG in NS 25 ML IV ONE (19:30)
[2018-10-23 21:12] LABS: CREATININE 1.6 mg/dL (0.7-1.2); POTASSIUM 4.7 mmol/L (3.5-5.1)
[2018-10-23] MEDS: HUMULIN R SUBQ SCH (23:29)
[2018-10-23] MEDS: NEURONTIN PO SCH (23:30)
[2018-10-23] MEDS: BASAGLAR SUBQ SCH (23:30)
[2018-10-23] MEDS ORDERED: INSULIN PEN NEEDLES ONE (23:33)
[2018-10-24] MEDS: XOPENEX NEB INH SCH ×6 (03:22→23:30)
[2018-10-24] MEDS: MAXIPIME 1 GM in NS 50 ML IV SCH ×2 (03:36→17:00)
[2018-10-24] MEDS ORDERED: LASIX IV ONE (04:00)
[2018-10-24 04:13] LABS: BASO# 0.02 X1000 (0.0-0.2); BASO% 0.2 % (0.0-0.8); EOS# 0.06 X1000 (0.0-0.7); EOS% 0.7 % (0.0-10.0); HEMOGLOBIN 9.7 g/dL (14.0-18.0); IMM GRAN# 0.06 X1000 (0.0-0.04); IMM GRAN% 0.7 % (0.0-0.5); LYMPH# 0.96 X1000 (1.2-3.4); LYMPH% 10.8 % (20.5-51.1); MCH 27.3 PG (27-31); MCHC 31.3 g/dL (33-37); MCV 87.3 FL (81-99); MONO# 0.86 X1000 (0.11-0.59); MONO% 9.7 % (1.7-9.3); MPV 9.9 FL (7.4-10.4); NEUT# 6.89 X1000 (1.4-6.5); NEUT% 77.9 % (42.2-75.2); PLT 205 X1000 (130-400); RBC 3.55 XMIL (4.7-6.1); WBC 8.85 X1000 (4.8-10.8)
[2018-10-24] MEDS: ZYVOX 600 MG/D5W 600 MG/300 ML IVPB IV SCH ×2 (04:18→18:04)
[2018-10-24 04:57] LABS: CALCIUM 7.6 mg/dL (8.8-10.2); CREATININE 1.8 mg/dL (0.7-1.2)
[2018-10-24 05:08] LABS: ALLEN TEST YES; BE 3.9 mmoll (-3.0-3.0); BLOOD TYPE ARTERIAL; HCO3-(ACT) 27.9 mmoll (20.0-26.0); METHB 1.2 % (0.0-1.5); O2(CT) 13.1 mL/dL (15.0-23.0); PCO2(98.6) 42 mmHg (35-45); PO2(98.6) 89 mmHg (60-100); SAMPLE BLOOD; SAO2 98.7 % (95.0-100.0); THB 9.7 g/dL (11.5-17.4); pH(98.6) 7.44 (7.35-7.45)
[2018-10-24 05:10] LABS: MODALITY BI PAP
--- NOTE | 2018-10-24 05:37 | PULMONOLOGY CONSULTATION ---
DATE: 10/23/2018 REQUESTING PHYSICIAN: Baron Cisneros MD. REASON FOR CONSULTATION: Respiratory failure. HISTORY OF PRESENT ILLNESS: Mr. Ramirez is a 73-year-old white male with morbid obesity, obstructive sleep apnea, chronic atrial fibrillation with recurrent pleural effusions, which have been transudative in the past. The patient had a prolonged hospital course and was admitted 09/10/2018 and discharged on 10/02/2018. The patient's course was complicated by pleural effusions, hypoxemic respiratory failure due to diastolic heart failure, significant pain in the left knee. The patient was discharged to the rehab facility for 21 days, and he recently returned home. He really has not done well since returning home. The patient was evaluated by EMS with an oxygen saturation of 59%. He was initiated on a non-rebreather and it increased to 89%. PAST MEDICAL HISTORY/PROBLEM LIST: 1. Morbid obesity. 2. Obstructive sleep apnea with noncompliance of CPAP device. 3. Diastolic heart failure. 4. Chronic kidney disease. 5. Type 2 diabetes mellitus. 6. History of transudative pleural effusions. 7. Chronic anemia. 8. Coronary artery disease status post stent placement. 9. Remote colon surgery. SOCIAL HISTORY: Nonsmoker. No alcohol use. FAMILY HISTORY: Noncontributory to current presentation. REVIEW OF SYSTEMS: Limited. The patient is arousable. He currently is without specific complaints, but is somnolent and goes back to sleep. He does report increased lower extremity edema. PHYSICAL EXAMINATION: General: Reveals an obese white male on non-rebreather. Current saturation 95%. Blood pressure 152/106, heart rate 96, respiratory rate 19 and unlabored. HEENT: Pupils are equal and reactive. Oropharynx is clear. Neck: Supple. Chest: Reveals diminished breath sounds both lung bases. Cardiac: S1, S2. Abdomen: Obese and soft. Extremities: Revealed 2+ peripheral edema. LABORATORIES: Chest x-ray reveals significant increased density in the lungs consistent with worsening effusions and pulmonary edema. CT angiogram was performed which reveals cardiomegaly. Moderate size bilateral effusions with pulmonary infiltrates. Arterial blood gas reveals a pH of 7.33, pCO2 of 40, pO2 of 66 on non-rebreather with a lactate of 4.6. IMPRESSION: A 73-year-old with morbid obesity, obstructive sleep apnea with noncompliance to continuous positive airway pressure device, who recently had an extended stay in this hospital followed by a rehabilitation stay. He has failed an attempt to return home and live alone. He now has worsening diastolic heart failure and obstructive sleep apnea with noncompliance of continuous positive airway pressure is likely a major contributor. He has chronic renal insufficiency and now, has received a contrast load and will be at risk for acute renal failure, during this hospitalization. The patient's overall prognosis is guarded to poor. He has acute hypoxemic respiratory failure, morbid obesity, bilateral pleural effusions, and non-treated sleep apnea. His daughter is at the bedside and it is her belief that if he fails BiPAP/CPAP, that he would not wish to be intubated. RECOMMENDATION: 1. Initiate BiPAP in an attempt to decrease PA pressures and help mobilize pleural effusions. 2. Diuretics as tolerated. 3. Rate control of atrial fibrillation. 4. Serial monitoring of kidney status. 5. Recommend do not intubate at family's request. cc: Caleb Petty MD
--- NOTE | 2018-10-24 07:02 | Diag Imaging Result Doc PS360 ---
EXAM: CHEST-PORTABLE 10/24/2018 HISTORY: resp failure TECHNIQUE: AP portable at 0337 COMMENT: Compared to 10/23/2018 there is worsening alveolar opacity throughout the right lung. This is particularly notable in the upper lobe. The left lung is essentially stable. IMPRESSION: Pulmonary edema and/or pneumonia worse than on 10/23/2018. Electronically signed by Yehuda Roldan 10/24/2018 7:00 AM
[2018-10-24] MEDS: HUMULIN R SUBQ SCH ×4 (09:44→21:10)
[2018-10-24] MEDS: LOPRESSOR PO SCH (09:50)
[2018-10-24] MEDS: CARDIZEM CD PO SCH (09:50)
[2018-10-24] MEDS: COLACE PO SCH (09:50)
[2018-10-24] MEDS: LANOXIN PO SCH (09:50)
[2018-10-24] MEDS: ASPIRIN PO SCH (09:50)
[2018-10-24] MEDS: NORVASC PO SCH (09:50)
[2018-10-24] MEDS ORDERED: INSULIN PEN NEEDLES ONE (10:44)
[2018-10-24] MEDS: BASAGLAR SUBQ SCH ×2 (11:04→21:00)
--- NOTE | 2018-10-24 12:05 | PROGRESS NOTE ---
DATE: 10/24/2018 SUBJECTIVE: This patient states that he is feeling better even though his x-ray looks a little bit worse for me. He does have pulmonary edema and, likely, he has also some infiltrates bilaterally. I will continue with the BiPAP machine even though with nonrebreathing mask he is doing fine with oxygen saturation around 96%. He has bilateral 3+ lower extremity edema bilaterally. No signs of infection though. Family members at the bedside. We discussed his resuscitation status, and he decided to be DNR LEVEL 1. OBJECTIVE: Vital Signs: Temperature 99.8, pulse 72, respiratory rate 24, blood pressure 155/84. Oxygen saturation 99% on the non rebreathing mask. HEENT: Head normocephalic. No trauma. PERRLA. Neck supple. No JVD. No masses. Central trachea. Chest: Decreased breath sounds bilaterally with bilateral crackles and rhonchi. Some expiratory wheezing. Abdomen is soft, nontender, nondistended. No hepatosplenomegaly. Abdominal wall edema. Extremities: 3+ lower extremity edema. No clubbing. No cyanosis. Neurological: The patient is alert and oriented x3. No focal neurological deficits. LABORATORY: WBC 8.8, hemoglobin 9.7, hematocrit 31.0. Platelets 205,000. Sodium 138, potassium 5, chloride 100, bicarbonate 26. BUN 25, creatinine 1.8, glucose 206. Calcium 7.6, magnesium 1.9, troponin 0.09. ASSESSMENT AND PLAN: 1. Acute hypoxemic respiratory failure probably this is also a chronic issue ,likely a combination of congestive heart failure exacerbation, likely diastolic. Pleural effusion and pneumonia. He has been given Lasix/ I will recheck the BMP in the afternoon. We will continue breathing treatment and pulmonary toilet, antibiotics. Pulmonary Department on board. 2. Healthcare-associated pneumonia. Continue with Zyvox and cefepime coma. Continue with x-rays and ABGs daily. 3. [id number] diastolic heart failure. He received Lasix yesterday and also today in the morning but his kidney function is going up. I will hold for now the Lasix, and I will recheck the kidney function in the afternoon to see if we can go ahead and give him some more. 4. Chronic atrial fibrillation, stable. He denies any chest pain at this moment. 5. Chronic kidney disease. Baseline creatinine is around 1.3 to 1.4. At this moment, it is a little bit elevated. We will continue with the same management. We will monitor the kidney function closely. 6. Diabetes mellitus. Continue pattern of blood sugar and sliding scale insulin. 7. Sepsis. This patient meets criteria with pneumonia which is likely the source, as well as a leukocytosis and tachycardia and tachypnea. His lactic acid also was elevated at 5 and decreased to 0.3. I will check that tomorrow as well. 8. Morbid obesity. Part of this is a lot of fluid but this patient's BMI is around 37.9. Diet and exercise have been discussed. 9. Deep vein thrombosis prophylaxis with Lovenox, renally dose. DNR status. This patient is DNR LEVEL 1. cc: Baron Cisneros MD
--- NOTE | 2018-10-24 14:03 | PULMONOLOGY PROGRESS NOTE ---
DATE: 10/24/2018 See later note cc: Caleb Petty MD MTDD
[2018-10-24] MEDS: NORCO-5 PO PRN ×2 (15:38→21:12)
[2018-10-24 16:34] LABS: CALCIUM 8.2 mg/dL (8.8-10.2); CREATININE 1.6 mg/dL (0.7-1.2); POTASSIUM 4.4 mmol/L (3.5-5.1)
[2018-10-24] MEDS: PROTONIX IV SCH (16:55)
[2018-10-24] MEDS: LASIX IV SCH (17:52)
[2018-10-24] MEDS: NEURONTIN PO SCH (21:10)
--- NOTE | 2018-10-25 01:18 | PULMONOLOGY PROGRESS NOTE ---
DATE: 10/24/2018 SUBJECTIVE: The patient reports he has had a good day. He reports his shortness of breath has diminished. He is currently on the BiPAP and saturating at 100%.HEENT: Pupils are equal and reactive. Oropharynx evaluation is limited with BiPAP in place. Neck: Supple. Chest: Reveals good air entry bilaterally with decreased breath sounds in the bases. Cardiac: S1, S2. Abdomen: Obese and soft. Extremities: Reveal 1+ peripheral edema. LABORATORIES: Arterial blood gas this morning on 70% FiO2 pH 7.44, pCO2 of 42, PO2 of 89. Chemistries at 4:00 a.m. this morning: Sodium 138, potassium 5.0, chloride 100, bicarbonate 26, BUN 25, creatinine 1.8. Chemistries at 15:55: Sodium 135, potassium 4.4, chloride 97, bicarbonate 27, BUN 26, creatinine 1.6. Chest x-ray: Increased density in the right lung. With stable changes on the left. Microbiology sputum culture pending. Influenza negative. Blood cultures negative to date. IMPRESSION: The patient is a 73-year-old with morbid obesity, obstructive sleep apnea, diastolic heart failure, pulmonary edema, pleural effusions, with acute on chronic renal insufficiency. The patient did receive contrast yesterday, his creatinine has slightly come down this afternoon which is encouraging. Clinically he reports he feels better although radiographically he appears slightly worse. RECOMMENDATIONS: 1. Continue BiPAP through the evening. 2. Continue diuretics as tolerated. 3. Continue to control atrial fibrillation rate. 4. Agree with end-of-life discussions which have taken place. 5. Follow up chest x-ray, and chemistries tomorrow per. cc: Caleb Petty MD
[2018-10-25] MEDS: XOPENEX NEB INH SCH ×5 (03:30→19:05)
[2018-10-25] MEDS: MAXIPIME 1 GM in NS 50 ML IV SCH ×2 (04:12→17:01)
[2018-10-25] MEDS: ZYVOX 600 MG/D5W 600 MG/300 ML IVPB IV SCH ×2 (04:53→17:01)
[2018-10-25] MEDS: NORCO-5 PO PRN ×2 (06:00→18:03)
[2018-10-25] MEDS: LASIX IV SCH ×2 (06:16→17:01)
[2018-10-25 06:37] LABS: BASO# 0.01 X1000 (0.0-0.2); BASO% 0.2 % (0.0-0.8); EOS# 0.27 X1000 (0.0-0.7); EOS% 4.1 % (0.0-10.0); HEMATOCRIT 29.3 % (42.0-52.0); HEMOGLOBIN 9.2 g/dL (14.0-18.0); IMM GRAN# 0.06 X1000 (0.0-0.04); IMM GRAN% 0.9 % (0.0-0.5); LYMPH# 0.86 X1000 (1.2-3.4); LYMPH% 13.2 % (20.5-51.1); MCH 27.3 PG (27-31); MCHC 31.4 g/dL (33-37); MCV 86.9 FL (81-99); MONO# 0.56 X1000 (0.11-0.59); MONO% 8.6 % (1.7-9.3); MPV 9.9 FL (7.4-10.4); NEUT# 4.75 X1000 (1.4-6.5); PLT 173 X1000 (130-400); RBC 3.37 XMIL (4.7-6.1); RDW 15.3 % (11.5-14.5); WBC 6.51 X1000 (4.8-10.8)
[2018-10-25 07:14] LABS: ALB/GLOB RATIO 0.6; ALBUMIN 2.5 g/dL (3.5-5.0); CREATININE 1.5 mg/dL (0.7-1.2); POTASSIUM 4.3 mmol/L (3.5-5.1); TOTAL BILIRUBIN 0.68 mg/dL (0.20-1.00); TOTAL PROTEIN 6.7 g/dL (6.3-8.3)
--- NOTE | 2018-10-25 07:40 | Diag Imaging Result Doc PS360 ---
EXAM: CHEST-PORTABLE HISTORY: resp failure TECHNIQUE: Portable chest single view COMPARISON: 10/24/2018 FINDINGS: The lungs are slightly better expanded and aerated on the current exam. There are bilateral infiltrates which remain although they're less dense on the right. Heart is borderline mildly prominent. There is a small left pleural effusion. IMPRESSION: Mild interval improvement. Electronically signed by Rob Young 10/25/2018 7:38 AM
[2018-10-25] MEDS: HUMULIN R SUBQ SCH ×5 (08:09→21:01)
[2018-10-25] MEDS: ASPIRIN PO SCH (09:40)
[2018-10-25] MEDS: BASAGLAR SUBQ SCH ×2 (09:40→21:00)
[2018-10-25] MEDS: COLACE PO SCH (09:40)
[2018-10-25] MEDS: LOPRESSOR PO SCH (09:40)
[2018-10-25] MEDS: NORVASC PO SCH (09:40)
[2018-10-25] MEDS: LANOXIN PO SCH (10:37)
[2018-10-25] MEDS: CARDIZEM CD PO SCH (10:37)
--- NOTE | 2018-10-25 11:37 | PROGRESS NOTE ---
DATE: 10/25/2018 SUBJECTIVE: This patient states that he is feeling better and he looks better today. X-ray showed a mild interval improvement. His kidney function has been stable. Will continue breathing treatment, oxygen supplementation. Pulmonary Department on board. OBJECTIVE: Vital signs: Temperature 97.6, pulse 86, respiratory rate 23, blood pressure 159/94, oxygen saturation 91 on a nonrebreathing mask. HEENT: Head normocephalic, no trauma, PERRLA. Neck: Supple. No JVD. Central trachea. Respiratory: He had decreased breath sounds bilaterally with bilateral crackles and rhonchi, some expiratory wheezing but minimally. Abdomen: Soft, nontender, nondistended, no hepatosplenomegaly. Extremities: 3+ lower extremity edema, no clubbing, no cyanosis. Neurological: The patient is alert and oriented x3. No focal deficits. LABORATORY: WBC 6.5, hemoglobin 9.2, hematocrit 29.3, platelets 173. Sodium 136, potassium 4.3, chloride 97, bicarbonate 27, BUN 28, creatinine 1.5, glucose 171, calcium 8, magnesium 1.9. AST 15, ALT 10, alkaline phosphatase 84. Albumin 2.5. Lactate is 1.2. ASSESSMENT AND PLAN: 1. Acute hypoxemic respiratory failure, which is probably a chronic issue, as well, like a combination of congestive heart failure--likely diastolic, pleural effusion, and pneumonia. He has been tolerating his Lasix really well. His kidney function has been stable so far, close to 4 L is the negative balance. 2. Healthcare-associated pneumonia. Continue with Zyvox and cefepime. Continue with x-ray and ABGs on a daily basis. 3. Acute on chronic diastolic heart failure. Continue with Lasix. Kidney function has been stable. Will continue to monitor. 4. Chronic atrial fibrillation, stable. He denies any chest pain at this moment. 5. Chronic kidney disease, baseline creatinine around 1.3 to 1.4. Today, the creatinine is 1.5. Will continue to monitor. Stable. 6. Diabetes mellitus. Continue with patterned blood sugar, sliding scale insulin. Stable. 7. Sepsis. This patient met criteria with pneumonia which is likely the source as well as leukocytosis, tachycardia, tachypnea. His lactic acid also was elevated at 5. Today it is normal. I will monitor. 8. Morbid obesity. Diet and exercise have been discussed as well as medications. 9. Deep vein thrombosis prophylaxis with Lovenox. 10.Do not resuscitate status. The patient is DNR level 1. cc: Baron Cisneros MD
--- NOTE | 2018-10-25 16:46 | PULMONOLOGY PROGRESS NOTE ---
DATE: 10/25/2018 SUBJECTIVE: The patient remains in the Emergency Department pending room availability. He has multiple family members in the room. He is awake, alert and conversant. He reports the shortness of breath has diminished. He did wear the BiPAP last evening. OBJECTIVE: Vital Signs: BP 137/94, heart rate 89, respiratory rate 31, oxygen saturation 95%. HEENT: Pupils are equal and reactive. Oropharynx is clear. Neck: Is supple. Chest: Reveals diminished breath sounds bilaterally with scattered crackles. Cardiac: S1-S2. Abdomen: Obese and soft. Extremities: Reveal 1 to 2+ peripheral edema. LABORATORIES: Chest x-ray reveals better inflation with slightly decreased infiltrates on the right. White blood count 6.5, hemoglobin 9.2, platelet count 173,000. Chemistries. Sodium 136, potassium 4.3, chloride 97, bicarbonate 27, BUN 28, creatinine 1.5, glucose 171. IMPRESSION: A 73-year-old morbid obesity, obstructive sleep apnea, diastolic heart failure, pulmonary edema, pleural effusions, with acute on chronic renal insufficiency. Patient's creatinine is stable and he is diuresing. Radiographically he appears to be improving. Clinically appears to be improving as well. RECOMMENDATIONS: 1. Continue nocturnal BiPAP. The patient might benefit from a Trilogy since he has had difficulty tolerating the BiPAP. 2. Continue diuretics as tolerated. 3. Continue rate control of his atrial fibrillation. 4. End-of-life discussions have been held with this patient and his resuscitation status has been addressed. cc: Caleb Petty MD
[2018-10-25] MEDS: PROTONIX IV SCH (17:01)
[2018-10-25] MEDS ORDERED: TYLENOL PO PRN (20:12)
[2018-10-25] MEDS: NEURONTIN PO SCH (20:59)
--- NOTE | 2018-10-25 21:07 | Diag Imaging Result Doc PS360 ---
EXAM: KNEE 3 VIEWS RIGHT HISTORY: Right Knee Pain TECHNIQUE: Right knee three views COMPARISON: None. FINDINGS: No fracture. No dislocation. Mild medial joint space narrowing with bone spurring. Severe atherosclerosis. IMPRESSION: Mild arthritis. Electronically signed by Rob Young 10/25/2018 9:04 PM
[2018-10-26] MEDS: MAXIPIME 1 GM in NS 50 ML IV SCH ×2 (02:46→15:19)
[2018-10-26] MEDS: ZYVOX 600 MG/D5W 600 MG/300 ML IVPB IV SCH ×2 (02:47→15:18)
[2018-10-26] MEDS: XOPENEX NEB INH SCH ×7 (03:43→23:42)
[2018-10-26] MEDS: LASIX IV SCH ×3 (05:12→23:12)
[2018-10-26] MEDS: NORCO-5 PO PRN ×4 (05:30→21:17)
[2018-10-26 05:49] LABS: BASO# 0.01 X1000 (0.0-0.2); BASO% 0.1 % (0.0-0.8); EOS# 0.17 X1000 (0.0-0.7); EOS% 2.2 % (0.0-10.0); HEMATOCRIT 27.6 % (42.0-52.0); HEMOGLOBIN 8.7 g/dL (14.0-18.0); IMM GRAN# 0.06 X1000 (0.0-0.04); IMM GRAN% 0.8 % (0.0-0.5); LYMPH# 1.12 X1000 (1.2-3.4); LYMPH% 14.5 % (20.5-51.1); MCH 26.9 PG (27-31); MCHC 31.5 g/dL (33-37); MCV 85.4 FL (81-99); MONO# 0.82 X1000 (0.11-0.59); MONO% 10.6 % (1.7-9.3); MPV 10.7 FL (7.4-10.4); NEUT# 5.53 X1000 (1.4-6.5); NEUT% 71.8 % (42.2-75.2); PLT 217 X1000 (130-400); RBC 3.23 XMIL (4.7-6.1); RDW 15.2 % (11.5-14.5); WBC 7.71 X1000 (4.8-10.8)
[2018-10-26 05:51] LABS: ALLEN TEST YES; BE 3.3 mmoll (-3.0-3.0); BLOOD TYPE ARTERIAL; HCO3-(ACT) 27.5 mmoll (20.0-26.0); O2(CT) 10.9 mL/dL (15.0-23.0); O2HB 95.2 % (95.0-99.0); PCO2(98.6) 46 mmHg (35-45); PO2(98.6) 88 mmHg (60-100); SAMPLE BLOOD
[2018-10-26 05:53] LABS: MODALITY BI PAP
[2018-10-26] MEDS: HUMULIN R SUBQ SCH ×4 (06:25→21:17)
[2018-10-26 06:28] LABS: ALB/GLOB RATIO 0.5; ALBUMIN 2.4 g/dL (3.5-5.0); CALCIUM 8.2 mg/dL (8.8-10.2); CREATININE 1.7 mg/dL (0.7-1.2); POTASSIUM 4.4 mmol/L (3.5-5.1); TOTAL BILIRUBIN 0.68 mg/dL (0.20-1.00); TOTAL PROTEIN 6.8 g/dL (6.3-8.3)
--- NOTE | 2018-10-26 07:32 | Diag Imaging Result Doc PS360 ---
EXAM: CHEST-PORTABLE HISTORY: resp failure TECHNIQUE: Portable chest single view COMPARISON: 10/25/2018 FINDINGS: The lungs are well expanded. There are dense bilateral infiltrates, right greater than left. Heart remains enlarged. There is a small left pleural effusion. The overall appearances study. IMPRESSION: No interval improvement. Electronically signed by Rob Young 10/26/2018 7:30 AM
[2018-10-26] MEDS: COLACE PO SCH (08:17)
[2018-10-26] MEDS: LANOXIN PO SCH (08:17)
[2018-10-26] MEDS: CARDIZEM CD PO SCH (08:17)
[2018-10-26] MEDS: BASAGLAR SUBQ SCH ×2 (08:18→21:17)
[2018-10-26] MEDS: LOPRESSOR PO SCH (08:18)
[2018-10-26] MEDS: NORVASC PO SCH (08:18)
[2018-10-26] MEDS: ASPIRIN PO SCH (08:18)
--- NOTE | 2018-10-26 09:46 | PROGRESS NOTE ---
DATE: 10/26/2018 SUBJECTIVE: Apparently, during the night, this patient's right knee started hurting. It looks like during the transportation, at some point, his right knee was traumatized, and he has been complaining of pain the whole night. Otherwise, he is feeling a little bit better. He is breathing a little bit better, but the x-ray had no changes compared with yesterday. There are dense bilateral infiltrates; the right side greater than the left side. The heart remains enlarged. There is some pleural effusion. I have requested an evaluation by the Cardiology Department to adjust his medications. He has been getting Lasix twice a day, and, so far, he has a negative balance of 5.2 L. This patient is completely alert and oriented x3. For his right knee, I have consulted the Orthopedic Surgery Department. Probably, this patient has fluid inside the knee. X-ray did not show any acute abnormality. OBJECTIVE: Vital Signs: Temperature 98.4, pulse 69, respiratory rate 15, blood pressure 173/85, oxygen saturation 97% on a Venturi mask. HEENT: Head normocephalic. No trauma. PERRLA. Neck: Supple. No JVD. No masses. Central trachea. Chest: Decreased breath sounds bilaterally with bilateral crackles and rhonchi. Some faint expiratory wheezing minimally. Abdomen soft, protuberant, nontender, nondistended. No hepatosplenomegaly. Extremities: 3+ lower extremity edema. No clubbing. No cyanosis. Neurologic: The patient is alert and oriented x3. No focal deficits. LABORATORY: WBC 7.7, hemoglobin 8.7, hematocrit 27.6, platelets 217,000. Sodium 133. Potassium 4.4. Chloride 94, bicarbonate 26. BUN 33. Creatinine 1.7. Glucose 187. Calcium 8.2. ASSESSMENT AND PLAN: 1. Acute hypoxemic respiratory failure which is probably a chronic issue as well, likely a combination of congestive heart failure, diastolic; pleural effusion and pneumonia. He probably has some component of chronic obstructive pulmonary disease. He used to be a smoker, and he smoked for more than 20 years, about 1 pack a day. His kidney function has been stable. BUN a little bit elevated compared with the baseline as well. 2. Healthcare-associated pneumonia. Continue with Zyvox and Cefepime. Will continue with x-rays on a daily basis. 3. [id number]-[id number] diastolic heart failure. I will continue with Lasix. Kidney function has been about the same compared with admission. BUN a little bit elevated though. Will continue to monitor. I have requested an evaluation by Cardiology Department. 4. Right knee swelling. lt looks like his knee has been traumatized during the night at some point, apparently during his transportation. I have requested an evaluation by the Orthopedic Surgery Department. Probably, will need to do an arthrocentesis. 5. Chronic atrial fibrillation, stable. He denies any chest pain. Continue with rate control. We are not using anticoagulation due to history of gastrointestinal bleed. 6. Chronic kidney disease. Baseline is around 1.4; today, it is 1.7. Continue with the same management. We will monitor this closely. 7. Type 2 diabetes. Continue pattern blood sugar and sliding scale insulin, stable. 8. Sepsis. This patient met criteria with pneumonia, leukocytosis, tachycardia, and tachypnea. His lactic acid also was elevated at 5. Will monitor. Continue with same management. 9. Morbid obesity. Diet and exercise have been discussed as well as medications. 10. Deep vein thrombosis prophylaxis with Lovenox. 11. Resuscitation status. This patient is DNR LEVEL I. cc: Baron Cisneros MD
[2018-10-26] MEDS: ISORDIL PO SCH ×2 (12:30→16:25)
[2018-10-26] MEDS: ALDACTONE PO SCH (12:30)
[2018-10-26] MEDS: APRESOLINE PO SCH ×2 (12:31→16:25)
[2018-10-26 12:52] LABS: C REACTIVE PROT QUANT 129.58 mg/L (0.00-5.00); URIC ACID 11.9 mg/dL (3.4-7.0)
--- NOTE | 2018-10-26 14:21 | CARDIOLOGY CONSULTATION ---
DATE: 10/26/2018 REQUESTING PHYSICIAN: Hospitalist Service. REASON FOR CONSULTATION: Congestive heart failure and dyspnea. CHIEF COMPLAINT: Dyspnea and pain in the right knee. HISTORY OF PRESENT ILLNESS: Mr. Ramirez is a pleasant 73-year-old male regularly followed by Dr. Abiodun Bustamante at my office. He presented to the hospital recently after a fall on 09/10/2018 and he was kept in the hospital for several days because of the development of acute renal failure, CHF, and persistent atrial fibrillation. He was complaining of pain in the knee all along. He spent a few days at [facility] in [place] and then he was discharged to his house on 10/18/2018. Since then he was seen by his primary care provider a couple of days later and he was noted to be swollen. 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 In the E.R. they did a chest x-ray that showed evidently fairly dense infiltrates bilaterally indicating pulmonary edema plus pneumonia and a moderate -sized pleural effusion. They could not help themselves but to do another pulmonary arteriogram and that study showed more pleural effusions bilaterally with extensive pulmonary infiltration and extensive consolidation. The patient has been treated with a BiPAP system and has required management with high flow oxygen to maintain adequate saturations. They have called us to help them in the management of his fluid overload. Dr. Petty from [facility] is suppose to follow him. PAST MEDICAL HISTORY: His past history is positive for severe coronary artery disease with a previous acute coronary syndrome and a stent to the LAD in 2014. He has had previous GI bleeding. He has been found to be in atrial fibrillation, however, he has not been able to tolerate anticoagulation because of gastrointestinal bleeding. He has hypertension, hyperlipidemia, and diabetes mellitus type 2. He has chronic kidney disease. He is morbidly obese. His body mass index is 40. PAST SURGICAL HISTORY: He has had a prior colectomy. He has had a closed head injury. SOCIAL HISTORY: He was in the [employer] for 5 years. He served in [employer] for a couple of years. He retired from [employer] in 1996. He has been 3 times and . He has been living by himself for the past 22 years. He has 3 daughters; two of them were in the room and they helped to provide history. He quit smoking several years ago. FAMILY HISTORY: Positive for a heart attack in his mother and his father with lung cancer. ALLERGIES: His allergies are positive to latex and sulfa drugs. HOME MEDICATION: Amlodipine 10 mg daily, aspirin 81 mg daily, Bumex 2 mg twice a day, digoxin 0.125 mg daily, diltiazem 240 mg in the morning, docusate 100 mg daily, gabapentin 100 mg at bedtime, insulin Lantus 50 units twice a day, metoprolol 50 mg in the morning, omeprazole 20 mg daily, and spironolactone 25 mg daily. REVIEW OF SYSTEMS: Very poor functional status. Right now his main complaint is pain in the right knee. He has had gout before. PHYSICAL EXAMINATION: Vital Signs: Blood pressure is 173/85, pulse 69, respirations 15, and temperature 98.4. General: He is awake, alert, oriented, and in no distress. HEENT: Unremarkable. Chest: Markedly diminished breath sounds bilaterally, especially at the bases with some dullness to percussion. I do not hear rales. Cardiovascular: Heart sounds are irregularly irregular. He does have a systolic murmur, 2/6, over the aortic area. It sounds like he could have aortic stenosis. Abdomen: The abdomen is obese and nontender. Extremities: The extremities show tenderness in the right knee with increased temperature there. He has good palpable pulses distally. He has trace to 1+ pedal edema. Neurological: He follows commands and moves all extremities. DIAGNOSTIC DATA: Blood work reveals a hemoglobin of 8.7, hematocrit of 27.6, and white cell count of 7,710. Blood gases reveal a pH of 7.40, pCO2 of 46, and pO2 of 88. Sodium is 133, potassium 4.4, BUN 33, and creatinine 1.7. Magnesium is 2. Albumin is 2.4. As I said, his chest x-ray shows persistent dense bilateral infiltrates. He has bilateral pleural effusions extensively noted on the CT of the chest done on the day of admission , 10/23/2018 IMPRESSION: 1. Patient presenting with increasing dyspnea, pulmonary infiltrates, and pleural effusions. This may be a combination of pneumonitis and congestive heart failure. 2. History of coronary artery disease and previous acute coronary syndrome status post stent. 3. Persistent atrial fibrillation. 4. Morbid obesity. 5. Diabetes mellitus type 2. 6. Chronic kidney disease. 7. History of morbid obesity and hypertension. 8. Acute? arthritis right knee. question of gout. RECOMMENDATIONS: 1. At this point in time I would like to obtain a followup echo just to reassess his ejection fraction and also aortic valve and mitral valve. 2. I will put him on a combination of isosorbide dinitrate and hydralazine to try to optimize blood pressure and put him on higher doses of diuretics. 3. Check inflammatory markers including uric acid and get an opinion from Orthopaedic Surgery because of his significant pain in the right knee. I discussed this with Dr. Petty. He is going to contact the orthopaedic physician. Further advise will be forthcoming. cc: Andrés Irene MD MTDD
--- NOTE | 2018-10-26 14:43 | CONSULTATION ---
DATE OF CONSULTATION: 10/26/2018 SUBJECTIVE: Napoleon Ramirez is a 73-year-old male who complains of right knee swelling and pain. PAST MEDICAL HISTORY: See admission History and Physical. PAST SURGICAL HISTORY: See admission History and Physical. MEDICATIONS: See admission History and Physical. ALLERGIES: See admission History and Physical. PHYSICAL EXAMINATION: GENERAL: Physical exam reveals a well-nourished male. He is cooperative with the exam. RIGHT LOWER EXTREMITY: Examination of his knee reveals 2 to 3+ effusion of the right knee. There is some mild warmth. There is no significant redness. He does have pain with any range of motion of his knee. His leg is neurovascularly intact. X-rays of his knee show moderate degenerative joint disease of the right knee. IMPRESSION: Right knee degenerative joint disease with possible gout versus just an acute flare of his arthritis. PLAN: We will aspirate his knee and send it for crystals. We will inject his knee as well if it does not appear to be any kind of infected appearing material. We will plan on doing that hopefully later this afternoon or evening. cc: Morgan Caruso MD
[2018-10-26] MEDS ORDERED: MORPHINE IV ONE (15:03)
[2018-10-26] MEDS: PROTONIX IV SCH (15:18)
--- NOTE | 2018-10-26 15:25 | PULMONOLOGY PROGRESS NOTE ---
DATE: 10/26/2018 SUBJECTIVE: The patient reports his breathing has significantly improved; however, he reports he is having severe pain in the right knee which is almost unbearable. The patient had pain in the left knee during a previous hospitalization and received an injection by Dr. Javan Teran. OBJECTIVE: The patient has had some urinary output. He appears to be negative for the last 24 hours. BP 160/75, heart rate 67, respiratory rate 15, oxygen saturation 99% on Venturi mask. HEENT: Pupils are equal and reactive. Oropharynx is clear. Neck is supple. Chest reveals diminished breath sounds in both lung bases. Cardiac exam S1, S2 with 2-3/6 systolic ejection murmur right upper sternal border. Abdomen is obese and soft. Extremities reveal slight decrease in edema. He has pain in the right knee without overt erythema. LABORATORIES: White blood count 7.17, hemoglobin 8.7, platelet count 217,000. Sedimentation rate 136, C-reactive protein 129. Sodium 130, potassium 4.4, chloride 94, bicarbonate 26. BUN 33, creatinine 1.7. Arterial blood gas: pH 7.40, pCO2 of 46, PO2 of 88. IMPRESSION: A 73-year-old with 1. Morbid obesity. 2. Obstructive sleep apnea. 3. Diastolic heart failure. 4. Pulmonary edema. 5. Pleural effusions. 6. [id number] renal insufficiency following contrast. The patient is having increased pain in his right knee. This could be inflammatory, such as gout or his routine arthritis or infectious, but the infection would seem less likely. I am reluctant to give him nonsteroidals and would like to avoid IV steroids if possible. PLAN: 1. Continue to cycle BiPAP and Venturi mask for hypoxemic and hypercapnic respiratory failure. 2. Continue diuretics as tolerated. 3. Echocardiogram per Dr. Irene. 4. I will ask Dr. Richard Caruso to evaluate the patient's right knee for interventions and treatments. cc: Caleb Petty MD
[2018-10-26 19:20] LABS: BODY FLUID SOURCE SYNOVIAL FLUID; WBC BF 27606 /cumm
[2018-10-26 19:26] LABS: MONOS 3 %; POLYS 97 %
[2018-10-26] MEDS: NEURONTIN PO SCH (21:17)
[2018-10-27] MEDS: NORCO-5 PO PRN ×2 (01:26→05:47)
[2018-10-27] MEDS: ZYVOX 600 MG/D5W 600 MG/300 ML IVPB IV SCH ×2 (03:20→16:20)
[2018-10-27] MEDS: MAXIPIME 1 GM in NS 50 ML IV SCH ×2 (03:20→16:20)
[2018-10-27] MEDS: XOPENEX NEB INH SCH ×6 (03:53→23:36)
[2018-10-27] MEDS ORDERED: ALBUMIN 25% IV SCH ×2 (04:30→09:00)
[2018-10-27 06:01] LABS: BASO# 0.01 X1000 (0.0-0.2); BASO% 0.1 % (0.0-0.8); HEMATOCRIT 26.4 % (42.0-52.0); HEMOGLOBIN 8.5 g/dL (14.0-18.0); IMM GRAN# 0.09 X1000 (0.0-0.04); IMM GRAN% 1.2 % (0.0-0.5); LYMPH# 0.63 X1000 (1.2-3.4); LYMPH% 8.6 % (20.5-51.1); MCH 27.3 PG (27-31); MCHC 32.2 g/dL (33-37); MCV 84.9 FL (81-99); MONO# 0.23 X1000 (0.11-0.59); MONO% 3.2 % (1.7-9.3); MPV 10.7 FL (7.4-10.4); NEUT# 6.34 X1000 (1.4-6.5); NEUT% 86.9 % (42.2-75.2); PLT 214 X1000 (130-400); RBC 3.11 XMIL (4.7-6.1); RDW 14.9 % (11.5-14.5)
[2018-10-27] MEDS: HUMULIN R SUBQ SCH ×4 (06:10→22:22)
[2018-10-27] MEDS: LASIX IV SCH ×3 (06:11→22:23)
[2018-10-27 06:44] LABS: ALB/GLOB RATIO 0.6; ALBUMIN 2.3 g/dL (3.5-5.0); CALCIUM 7.7 mg/dL (8.8-10.2); TOTAL BILIRUBIN 0.51 mg/dL (0.20-1.00); TOTAL PROTEIN 6.3 g/dL (6.3-8.3)
[2018-10-27 06:51] LABS: POTASSIUM 5.3 mmol/L (3.5-5.1)
[2018-10-27 07:07] LABS: LYMPHS 14 % (21-51); MONO 2 % (1-9); SEGS 84 % (42-75)
--- NOTE | 2018-10-27 08:20 | Diag Imaging Result Doc PS360 ---
EXAM: CHEST-PORTABLE - 10/27/2018 HISTORY: resp failure TECHNIQUE: Portable chest COMPARISON: 10/26/2018 FINDINGS: There is been mild decrease in bilateral infiltrates. There is persistent small left pleural effusion. There is no pneumothorax identified. The left heart border is partially obscured, but heart size appears borderline to mildly enlarged. IMPRESSION: Mild decrease in bilateral infiltrates. Persistent small left pleural effusion. Electronically signed by Fernando Cisneros 10/27/2018 8:18 AM
[2018-10-27] MEDS: CARDIZEM CD PO SCH (08:25)
[2018-10-27] MEDS: ALDACTONE PO SCH (08:25)
[2018-10-27] MEDS: LOPRESSOR PO SCH (08:25)
[2018-10-27] MEDS: COLACE PO SCH (08:25)
[2018-10-27] MEDS: ASPIRIN PO SCH (08:25)
[2018-10-27] MEDS: APRESOLINE PO SCH ×3 (08:25→16:19)
[2018-10-27] MEDS: BASAGLAR SUBQ SCH ×2 (08:26→22:22)
[2018-10-27] MEDS: ISORDIL PO SCH ×3 (08:26→16:19)
[2018-10-27] MEDS: LANOXIN PO SCH (08:26)
--- NOTE | 2018-10-27 09:16 | ECHO REPORT ---
ORDER DATE: 10/26/2018 INTERPRETING PHYSICIAN: Dr. Irene REQUESTING PHYSICIAN: CLINICAL INDICATIONS: This is a 73-year-old male with CHF, atrial fibrillation. M-MODE MEASUREMENTS: Right ventricle: cm. Left ventricle end diastole: 4.9 cm. Left ventricle end systole: 3.6 cm. Posterior wall: 1.2 cm. Interventricular septum: 1.2 cm. Left atrium: 5.3 cm. Aortic root: 2.6 cm. SUMMARY OF 2-DIMENSIONAL IMAGIN. Left ventricular function appears to be at the lower limits of normal. It is somewhere in the range of 50% to 55%. 2. This study is difficult. Definity was added. With Definity, the general contractility of the ventricle appears to be really normal. Ejection fraction with Definity is more within the normal range of 55% to 60%. 3. I do not see any significant pericardial effusion. 4. Pleural effusion appears to be present. 5. Aortic valve is calcific. It shows decreased opening. Maximum gradient across this valve is 40 mmHg, mean gradient is 28 mmHg which is consistent with a moderate degree of aortic stenosis. Valve area is grossly estimated at 1.6 cm sq. 6. Mitral valve was not well visualized. There may be mild degree of mitral regurgitation. 7. The patient appears to be in atrial fibrillation. 8. The mitral inflow shows a single filling wave. CONCLUSIONS: In summary, this study was limited. However, Definity was added and shows the presence of generally well preserved left ventricular systolic function with moderate aortic stenosis. Mean gradient 28 mmHg. Valve area appears to be in the order of 1.6 cm sq, although this is just a gross estimation. Mild mitral regurgitation appears to be present. Left atrium appears to be moderately enlarged. Pleural effusion is present. Clinical correlation is recommended. cc: Andrés Irene MD
[2018-10-27] MEDS: COLCRYS PO SCH ×2 (09:28→22:22)
--- NOTE | 2018-10-27 09:45 | PROGRESS NOTE ---
DATE: 10/27/2018 SUBJECTIVE: This patient feels better compared with yesterday. He is still having knee pain but compared with yesterday, it is better. He had an arthrocentesis done that showed elevated WBCs but only 97 polynuclear white blood cells. Crystals are pending but the uric acid is 11.9 so I will go ahead and start this patient on colchicine and I will monitor. Also, I will try to ask the orthopedic surgeon to put some steroids inside the knee if possible. OBJECTIVE: Vital Signs: Temperature 97.6 degrees, pulse 79, respiratory rate 15, oxygen saturation 96 on a Venturi mask, 15% oxygen flow. HEENT: Head normocephalic. No trauma. PERRLA. Neck: Supple. No JVD. No masses. Central trachea. Chest: Decreased breath sounds bilaterally with bilateral crackles at the bases and some rhonchi. No wheezing today. Abdomen: Soft, protuberant, nontender, nondistended. No hepatosplenomegaly. Extremities: There is 2 to 3+ lower extremity edema. No clubbing. No cyanosis. Right knee a little bit edematous compared with the left knee and painful to palpation and mobilization. Laboratory Data: WBCs 7.3, hemoglobin 8.5, hematocrit 26.4, platelets 214,000. Sodium 133, potassium 5.3, chloride 93, bicarbonate 26, BUN 40, creatinine 2, glucose 275, calcium 7.7. CRP 129.5, albumin 2.3. ASSESSMENT AND PLAN: 1. Acute hypoxemic respiratory failure which is probably a chronic issue as well, likely a combination of congestive heart failure, diastolic, pleural effusion, and pneumonia. He probably has chronic obstructive pulmonary disease as well. He used to be a smoker and he smoked for more than 20 years about 1 pack a day but he stopped a long time ago. His kidney function has increased a little bit. BUN and creatinine are a little bit elevated compared with yesterday. 2. Healthcare-associated pneumonia. Continue with the same management. Continue with x-rays. 3. Acute on chronic diastolic heart failure. I will continue with Lasix but I will decrease the dose from every 8 hours to every 12 hours. Also, I will hold the spironolactone due to his hyperkalemia. BUN and creatinine are a little bit elevated. The case has been discussed with the cardiology department. 4. Right knee swelling, likely secondary to a gout flare. I will start this patient on colchicine. We will ask orthopedic surgery department to see if they can place some steroids inside the knee if possible. This patient had an arthrocentesis done yesterday that showed increased WBCs, pending crystals, and around 97 polymorphic WBCs. 5. Chronic atrial fibrillation, stable. He denies any chest pain. Continue with rate control. He is not on anticoagulation due to his history of gastrointestinal bleed. 6. Chronic kidney disease. His baseline is around 1.4. Today, the creatinine is 2. Continue with diuretics but I will decrease the frequency. I will hold the spironolactone due to his mild hyperkalemia. 7. Hyperkalemia. Hold spironolactone. Continue with furosemide but twice a day. 8. Sepsis. This patient met criteria with pneumonia, leukocytosis, tachycardia, and tachypnea. His lactic acid also was elevated at 5. We will monitor. Continue with the same management. 9. Morbid obesity. Diet and exercise have been discussed, as well as medications. 10. Deep vein thrombosis prophylaxis. Continue with the same management. 11. Resuscitation status. This patient is Do Not Resuscitate. cc: Baron Cisneros MD
--- NOTE | 2018-10-27 12:06 | PROGRESS NOTE ---
DATE: 10/27/2018 SUBJECTIVE: Napoleon Ramirez is a 73-year-old male with right knee swelling. He states his knee has improved as far as pain is concerned today. It is still painful to move or use his leg. OBJECTIVE: General: He is a well-developed, well-nourished male. He is alert, oriented, and cooperative with exam. Extremities: Exam of his knee does reveal pain with range of motion. He does have less effusion today. I aspirated his knee yesterday and returned about 30 mL of normal appearing joint fluid. We injected his knee with 4 mL of Marcaine, 4 mL of lidocaine, and 80 mg of Depo-Medrol. He tolerated this well. He states it has improved his knee pain and function since the yesterday, although it is still not back to normal. Dr. Figueroa has already placed him on colchicine for gout. His uric acid level was elevated and his white cell count in his sample was 27,000, consistent with an inflammatory arthropathy such as gout. ASSESSMENT: Right knee inflammatory arthropathy, likely gout. PLAN: I agree with continuing the colchicine. We can continue physical therapy as tolerated. Once this has calmed down, he can be placed on Uloric or allopurinol for maintenance for his gout and follow up with his family physician or internal sales for treatment of his gout in the manager intermediate. I will be available as needed for any further treatment for him orthopedically. cc: Morgan Caruso MD
--- NOTE | 2018-10-27 12:47 | CARDIOLOGY PROGRESS NOTE ---
DATE: 10/27/2018 CHIEF COMPLAINT: Shortness of breath, pain in the knee. SUBJECTIVE: Mr. Ramirez is feeling much better today. His breathing is better. Blood pressure seems to be better controlled. Also, he was seen by Dr. Caruso from Orthopedic Surgery, and he performed aspiration of the right knee which shows inflammatory process, gave him a steroid. His uric acid is elevated, suggesting that indeed we are dealing with gout. His sedimentation rate was very high at 136 mm per hour. His C-reactive protein was also up at 129.58. OBJECTIVE: Vital signs: Today, blood pressure is 122/57, temperature 97.6, pulse 79, respirations 15. He is awake, alert, oriented, no distress. HEENT: Unremarkable. Chest: Diminished breath sounds at bases. Heart sounds are regular and rhythmic. Systolic murmur is noted. Abdomen is obese, nontender. Extremities showed less tenderness at the level of the right knee. Neurologic: Follows commands. Moves all 4 extremities. DIAGNOSTIC DATA: His echocardiogram from yesterday shows that he has moderate aortic stenosis. His ejection fraction actually is well preserved. Mean gradient across the valve is 28 mmHg. IMPRESSION: 1. The patient is with diastolic heart failure. 2. Severe coronary heart disease. 3. Anemia. 4. Chronic kidney disease. 5. Acute gout involving right knee. This is better now. 6. The patient is with morbid obesity. RECOMMENDATIONS: At this point in time, we will continue present medical therapy. Colchicine has been started by Dr. Fgiueroa to control his gout. He probably will have to start taking allopurinol at some point in time. We will follow his hospital course. Right now, he seems to be getting better. cc: Andrés Irene MD
[2018-10-27 14:20] LABS: UR CREATININE 123.5 mg/dL (14-26); UR PROTEIN 28.9 mg/dL
[2018-10-27 14:27] LABS: UR CREATININE TOTAL 1358.5 mg/24 (800-1800)
[2018-10-27] MEDS: PROTONIX IV SCH (16:19)
[2018-10-27 17:29] LABS: CALCIUM 7.4 mg/dL (8.8-10.2); CREATININE 2.2 mg/dL (0.7-1.2); POTASSIUM 5.4 mmol/L (3.5-5.1)
--- NOTE | 2018-10-27 19:49 | PULMONOLOGY PROGRESS NOTE ---
DATE: 10/27/2018 SUBJECTIVE: The patient is sitting on the side of the bed eating lunch. His shortness of breath has markedly diminished. He reports the pain in the knee has markedly diminished following aspiration and initiation of Marcaine, lidocaine and Depo-Medrol. OBJECTIVE: Vital Signs: Blood pressure 122/51, heart rate 60, respiratory rate 17, oxygen saturation 100% on Venturi mask at 40%. HEENT: Pupils are equal and reactive. Oropharynx appears clear. Neck: Supple. Chest: Reveals better breath sounds in the lung bases. Cardiac: S1, S2. Abdomen: Obese and soft. Extremities: Reveal decreased edema. LABORATORIES: BUN 40, slightly elevated, creatinine 2.0, stable. Sodium 133, potassium 5.3, chloride 93, glucose 275. Cultures from the synovial fluid aspiration negative growth, Gram stain from the synovial fluid aspiration 3+ white blood cells but no organisms. Chest x-ray: Continued decrease in bilateral infiltrates with small left-sided pleural effusion. IMPRESSION: A 73-year-old with morbid obesity, obstructive sleep apnea, diastolic heart failure, pulmonary edema, pleural effusions, acute hypoxemic respiratory failure, acute on chronic renal insufficiency associated with contrast dye and diuretics, inflammatory findings in the right knee likely related to gout. Pain has significantly improved with the initiation of Marcaine, lidocaine, and Depo-Medrol. PLAN: 1. Agree with decreasing Lasix dose with increasing BUN and creatinine. Would like to balance intake and output if possible. 2. Continue to cycle BiPAP at bedtime. 3. Colchicine as per Dr. Figueroa with initiation of Uloric or allopurinol after discharge. cc: Caleb Petty MD
[2018-10-27] MEDS ORDERED: INSULIN PEN NEEDLES ONE (22:06)
[2018-10-27] MEDS: NEURONTIN PO SCH (22:23)
[2018-10-28] MEDS ORDERED: HUMALOG SUBQ ONE (02:26)
[2018-10-28] MEDS: MAXIPIME 1 GM in NS 50 ML IV SCH ×2 (03:18→14:30)
[2018-10-28] MEDS: ZYVOX 600 MG/D5W 600 MG/300 ML IVPB IV SCH ×2 (03:19→14:30)
[2018-10-28] MEDS: XOPENEX NEB INH SCH ×6 (03:42→23:20)
[2018-10-28 06:31] LABS: CALCIUM 8.6 mg/dL (8.8-10.2); CREATININE 2.3 mg/dL (0.7-1.2)
[2018-10-28 06:57] LABS: HEMOGLOBIN 7.9 g/dL (14.0-18.0); IMM GRAN# 0.05 X1000 (0.0-0.04); IMM GRAN% 0.6 % (0.0-0.5); LYMPH# 0.41 X1000 (1.2-3.4); LYMPH% 5.2 % (20.5-51.1); MCH 26.7 PG (27-31); MCHC 31.6 g/dL (33-37); MCV 84.5 FL (81-99); MONO# 0.23 X1000 (0.11-0.59); MONO% 2.9 % (1.7-9.3); MPV 10.8 FL (7.4-10.4); NEUT# 7.13 X1000 (1.4-6.5); NEUT% 91.3 % (42.2-75.2); PLT 231 X1000 (130-400); RBC 2.96 XMIL (4.7-6.1); RDW 14.6 % (11.5-14.5); WBC 7.82 X1000 (4.8-10.8)
[2018-10-28] MEDS: HUMULIN R SUBQ SCH ×5 (07:09→20:49)
[2018-10-28 07:52] LABS: LYMPHS 14 % (21-51); MONO 8 % (1-9); SEGS 78 % (42-75)
[2018-10-28] MEDS ORDERED: SAMSCA PO ONE (07:52)
[2018-10-28] MEDS ORDERED: BASAGLAR SUBQ ONE ×2 (08:00→21:00)
[2018-10-28] MEDS: BASAGLAR SUBQ SCH (08:09)
[2018-10-28] MEDS: LANOXIN PO SCH (08:10)
[2018-10-28] MEDS: ASPIRIN PO SCH (08:11)
[2018-10-28] MEDS: COLACE PO SCH (08:11)
[2018-10-28] MEDS: COLCRYS PO SCH ×2 (08:11→20:50)
[2018-10-28] MEDS: LOPRESSOR PO SCH (08:11)
[2018-10-28] MEDS: ISORDIL PO SCH ×3 (08:11→16:23)
[2018-10-28] MEDS: APRESOLINE PO SCH ×3 (08:11→16:23)
[2018-10-28] MEDS: CARDIZEM CD PO SCH (08:11)
[2018-10-28] MEDS ORDERED: ALBUMIN 25% IV SCH (08:30)
--- NOTE | 2018-10-28 09:09 | Diag Imaging Result Doc PS360 ---
EXAM: CHEST-PORTABLE HISTORY: SOB TECHNIQUE: Single view of the chest was performed portably. COMPARISON: 10/27/2018 FINDINGS: Cardiomegaly, pulmonary vascular congestion, with bilateral alveolar infiltrates and left pleural effusions/basilar airspace disease has not significantly changed. IMPRESSION: No significant change in pulmonary vascular congestion and bilateral infiltrates/left effusion. Electronically signed by Arleth Rivera 10/28/2018 9:07 AM
--- NOTE | 2018-10-28 09:11 | CARDIOLOGY PROGRESS NOTE ---
DATE: 10/28/2018 CHIEF COMPLAINT: Shortness of breath, pain in the knee. SUBJECTIVE: Mr. Ramirez, in general, seems to be doing better. Followup chest x-ray yesterday showed mild decrease in bilateral infiltrates. The pain in the knee has improved with management per Dr. Caruso. He did have gout. His telemetry shows atrial fibrillation with controlled rate. OBJECTIVE: Vital signs today: Blood pressure 141/60, pulse 67, respirations 19, temperature 97.6. General: He is awake, alert, in no distress. HEENT: Unremarkable. Chest: Diminished breath sounds at bases. Cardiac: Heart sounds irregularly irregular with a systolic murmur, 2/6 intensity. Abdomen: Obese. Extremities: Showed less warmth as well as the right knee. Neurological: Follows commands, moves four extremities. BLOOD WORK: Sodium 128, potassium 5.0, BUN 71, creatinine 2.3. IMPRESSION: 1. Patient with congestive heart failure. This is diastolic and probably compounded by coronary heart disease. 2. Permanent atrial fibrillation. 3. Gout, acute. 4. Chronic kidney disease with some prerenal azotemia. 5. History of morbid obesity. 6. Arterial hypertension. RECOMMENDATION: At this time, we will stop diuretics as per discussion with Dr. Figueroa. We have to manage his hyperglycemia. We will give him a dose of Samsca to handle the hyponatremia. Further advice will be forthcoming. He needs to start getting up and about. Cardiac-whittington, I think he is fairly reasonably treated right now. We will continue program with hydralazine, diltiazem, digoxin, aspirin, and metoprolol. Will follow him along. cc: Andrés Irene MD
--- NOTE | 2018-10-28 09:54 | PROGRESS NOTE ---
DATE: 10/28/2018 SUBJECTIVE: The patient feels a little bit better compared with yesterday. He is having some wheezing today. He had an arthrocentesis yesterday, that showed elevated WBCs, but only 97 polynuclear white blood cells. He received a shot of steroids as well inside the knee. Blood sugar has been elevated, likely due to the steroids. I have increased the dose of the sliding scale to intermediate dose and I will increase the dose of his insulin glargine today from 50 to 70. I will monitor his blood sugar during the day. His kidney function is getting a little bit worse and the urine output has decreased. I held the furosemide and I placed a consult for Nephrology Department evaluation. OBJECTIVE: Vital Signs: Temperature 97.6, pulse 67, respiratory rate 17, blood pressure 141/60, oxygen saturation 98 on a Venturi mask. HEENT: Head normocephalic. No trauma. PERRLA. Neck: Supple. No JVD. No masses. Central trachea. Chest: Decreased breath sounds bilaterally with bilateral rales at the bases. Bilateral scattered expiratory wheezing. Abdomen: Soft, protuberant, nontender, nondistended. No hepatosplenomegaly. Extremities: 2 to 3+ lower extremity edema. No clubbing. No cyanosis. His right knee is still a little bit edematous, but compared with a couple days ago, it is better, less painful. LABORATORY: WBC 7.8, hemoglobin 7.9, hematocrit 25, platelet 231. Sodium 128, potassium 5, chloride 90, bicarbonate 23, BUN 72, creatinine 2.3, glucose 447, calcium 8.6, magnesium 2.3. ASSESSMENT AND PLAN: 1. Acute hypoxemic respiratory failure which is probably a chronic issue as well, likely a combination of congestive heart failure, pleural effusion and pneumonia. He probably has also chronic obstructive pulmonary disease. He has been wheezing today. He used to be a smoker, and he smoked for more than 20 years, about 1 pack a day but he stopped a long time ago. His kidney function is getting a little bit worse as well as his urine output. I have requested an evaluation by Nephrology Department, and I held the furosemide. 2. Healthcare-associated pneumonia. Continue with the same management. X-ray looks about the same for me. 3. Acute on chronic diastolic heart failure. I will continue with the same management except that I will hold the Lasix for now. Spironolactone has been held due to hyperkalemia as well. Cardiology Department on board. 4. Right knee swelling, likely secondary to gout flare, I already started this patient on colchicine and he probably will need to get outpatient treatment like allopurinol upon discharge. 5. Chronic atrial fibrillation, stable. He denies any chest pain. Continue with rate control. He is not on anticoagulation due to his history of GI bleed. 6. Chronic kidney disease. His baseline is around 1.4. Today, his creatinine is elevated at 2.3 and the urine output is decreasing. Nephrology department has been consulted. I held already the furosemide and spironolactone. 7. Hyperkalemia, resolved. 8. Sepsis. This patient met criteria with pneumonia, leukocytosis, tachycardia, tachypnea and lactic acid was elevated at 5. Will monitor. Continue with same management. 9. Morbid obesity with a body mass index of 40.4. 10. Deep vein thrombosis prophylaxis. Continue with same management. 11. Resuscitation status: This patient is Do Not Resuscitate level 1. cc: Baron Cisneros MD
[2018-10-28 11:58] LABS: UR CREAT RANDOM 179.3 mg/dL (14-26)
--- NOTE | 2018-10-28 13:32 | NEPHROLOGY CONSULTATION ---
DATE: 10/28/2018 REASON FOR ADMISSION: Increased work of breathing. REQUESTING PHYSICIAN: Baron Cisneros MD. REASON FOR CONSULT: Acute kidney injury on CKD stage 3. HISTORY OF PRESENT ILLNESS: Mr. Ramirez is a 73-year-old, white male, with a history of coronary artery disease, chronic atrial fibrillation, and diastolic heart failure, who has known creatinine of 1.4, CKD stage 3. The patient has recently been hospitalized and was discharged in October. Had gone to rehab and was recently home. He is very short of breath. He remains on his 50% isabella- mask at this time. His sister from [place] is his historian and states that her sister who lives locally, found him complaining of worsening lower extremity swelling and significant increased work of breathing. Was unable to lie flat. She called the ambulance. He was brought to the emergency room where he was found to be at 89% on 100% non-rebreather. His labs indicated that his white count was 15. He was hypoxic on blood gases with a lactic acid of 5. He had a low- grade temperature, was tachycardic and tachypneic. He now has Dr. Petty on his case, following for pneumonia. Cardiology has been consulted in regards with his chronic atrial fibrillation with a plan for a repeat echocardiogram. Last known diastolic ejection fraction of 55% prior to this hospitalization. The patient has continued to receive diuretic therapy over the last 5 days due to his elevated creatinine. It has been suggested that they will hold his Lasix for today. PAST MEDICAL HISTORY: Coronary artery disease, chronic atrial fibrillation, diastolic heart failure, previous known ejection fraction of 55%. CKD stage 3, baseline creatinine 1.4, type 2 diabetes, asbestos exposure in the past, morbid obesity, chronic anemia, history of transudative pleural effusions status post thoracentesis which was negative for malignancy. He has GERD, chronic swelling. PAST SURGICAL HISTORY: Colon resection, coronary artery stent. Thoracentesis in the past. SOCIAL HISTORY: He lives alone. He has family who are attentive to his care. Denies tobacco, alcohol or illicit drug use. FAMILY HISTORY: Positive for cardiac, negative for end-stage renal disease. ALLERGIES: Listed as latex and sulfa. MEDICATIONS: Are listed as Bumex, cardia XT, Neurontin, Lantus, metoprolol, Norvasc, aspirin, Lanoxin, Colace, Prilosec and Aldactone. REVIEW OF SYSTEMS: As best obtained per patient and per his sister at his bedside. He currently denies any chest pain. No increased work of breathing. Remains on 50% face mask. Positive for lower extremity swelling. No nausea, vomiting, or diarrhea. No complaints of fever or chills. VITAL SIGNS: His most recent vital signs: Temperature 97.6, blood pressure 141 /60, heart rate 61, respirations 17. He is on 50% face mask. Last recorded saturation 98%. He has had 590 in. He has only had 250 mL out to his Bradley catheter, which has been diminishing over the last several days. The patient currently is in a -5 L fluid balance since his admission. LABS: Sodium 128, potassium 5, chloride 90, CO2 of 23, BUN 71, creatinine 2.3, glucose 447. Anion gap 15, calcium 8.6, albumin 2.3, magnesium 2.3. White count 7.82, hemoglobin 7.9, hematocrit 25, platelet count 231. The patient had a 24-hour urine indicating a creatinine clearance of 47% with a total proteinuria of 318. The patient's most recent chest x-ray has been completed this morning showing no significant changes in pulmonary vascular congestion and bilateral infiltrates. PHYSICAL EXAMINATION: General: This is a 73-year-old, white male, who appears in no acute distress. Skin: Warm and dry. HEENT: Normocephalic, atraumatic. Conjunctiva is pale pink. He has MAKEDA. Mucous membranes are dry. Neck: Supple. Trachea midline. Unable to determine JVD due to body habitus. Cardiovascular: Irregular rate and rhythm. S1, S2 auscultated. No gallop appreciated. Lungs: Diminished breath sounds bilateral. Poor inspiratory effort. Remains on O2 support. Abdomen: Obese, soft, hypo bowel sounds present. Genitourinary: Bradley catheter is in place. He has greater than 250 mL out to his urometer at this time with only 250 recorded this a.m. for a total of 500 in the last 24 hours. Integumentary: No rashes or lesions noted on the anterior surface. Extremities: He has 2+ lower extremity edema with chronic venous stasis present. Neurological: He is alert and oriented to person and to place. ASSESSMENT AND PLAN: 1. Acute kidney injury overlying chronic kidney disease stage 3. Baseline creatinine is 1.3. This appears to be multifactorial ATN. Patient has had an arteriogram performed upon his admission on the . He has continued to receive diuretic therapy. The patient had a repeat echocardiogram showing 50% ejection fraction. He has had decreased urinary output as per recorded, though it is noted he has 250 mL already in his bag from this morning. We will check urine electrolytes to determine if he is prerenal. We will check a renal ultrasound at the bedside to determine if he is obstructed. His Lasix is currently on hold. 2. Electrolytes and acid-base balance. These are fairly stable with a low sodium secondary more than likely to #1. 3. Anemia. This remains low but fairly stable. We will defer to the primary care team for possible transfusion. 4. Possible pneumonia versus congestive heart failure. The patient is currently on Maxipime. His spironolactone and furosemide have been held. I would like to thank you for allowing us to follow with this patient. Dictated by ALEJANDRA Reyes for Hunter Iniguez MD Face to face encounter, data reviewed, discussed with Shen Garsia on 10/28/18. I agree with the above assessment and plan of care. cc: ALEJANDRA Reyes MD [facility]
[2018-10-28] MEDS: PROTONIX IV SCH (14:30)
--- NOTE | 2018-10-28 16:41 | Diag Imaging Result Doc PS360 ---
EXAM: US RENAL 2 (RETROPER) COMPLETE 10/28/2018 HISTORY: decreased renal function TECHNIQUE: Renal ultrasound COMMENT: The kidneys are without evidence of hydronephrosis or mass. Detail is somewhat poor due to the patient's body habitus. The right kidney is 10.7 x 5.6 x 5.5 cm the left is 10.1 x 5.9 x 5.2 cm. The bladder is not distended and there is a Bradley catheter. IMPRESSION: No evidence of obstructive uropathy. Electronically signed by Yehuda Roldan 10/28/2018 4:38 PM
[2018-10-28] MEDS: NEURONTIN PO SCH (20:50)
--- NOTE | 2018-10-29 02:19 | PULMONOLOGY PROGRESS NOTE ---
DATE: 10/28/2018 SUBJECTIVE: The patient reports he has had a good day. Knee pain bilaterally has diminished. OBJECTIVE: Vital Signs: The patient has been afebrile. Blood pressure 128/53, heart rate 63, respiratory rate 18, oxygen saturation 96% on 40% FiO2. HEENT: Pupils are equal and reactive. Oropharynx is clear. Neck: Supple. Chest: Reveals crackles in the lung bases. Cardiac: S1 and S2. Abdomen: Obese and soft. Extremities: Revealed increase in peripheral edema. LABORATORY DATA: Chest x-ray reveals [id number] left-sided pleural effusion with cardiomegaly and stable vascular congestion. White blood count 7.82, hemoglobin 7.9, platelet count 231,000. Chemistry: Sodium 128, potassium 5.0, chloride 90, bicarbonate 23, BUN 71, creatinine 2.3, glucose 441. IMPRESSION: The patient is a 73-year-old with morbid obesity and a body mass index of 40, obstructive sleep apnea, diastolic heart failure, pulmonary edema, pleural effusions, acute hypoxemic respiratory failure, acute on chronic renal insufficiency, with probable gout. Clinically he continues to improve, but his BUN and creatinine remain elevated. RECOMMENDATIONS: 1. Attempt to balance intake and output. Hopefully his BUN and creatinine will improve. 2. Continue to cycle BiPAP at bedtime. He does need an outpatient CPAP BiPAP evaluation. 3. Continue to treat gout as you are doing. cc: Caleb Petty MD
[2018-10-29] MEDS: MAXIPIME 1 GM in NS 50 ML IV SCH ×2 (03:04→14:47)
[2018-10-29] MEDS: ZYVOX 600 MG/D5W 600 MG/300 ML IVPB IV SCH ×2 (03:04→14:47)
[2018-10-29] MEDS: XOPENEX NEB INH SCH ×6 (03:35→23:13)
[2018-10-29 05:22] LABS: BASO# 0.01 X1000 (0.0-0.2); BASO% 0.1 % (0.0-0.8); HEMATOCRIT 24.3 % (42.0-52.0); HEMOGLOBIN 7.7 g/dL (14.0-18.0); IMM GRAN# 0.12 X1000 (0.0-0.04); IMM GRAN% 1.4 % (0.0-0.5); LYMPH# 0.54 X1000 (1.2-3.4); LYMPH% 6.4 % (20.5-51.1); MCH 26.6 PG (27-31); MCHC 31.7 g/dL (33-37); MCV 83.8 FL (81-99); MONO# 0.35 X1000 (0.11-0.59); MONO% 4.1 % (1.7-9.3); MPV 10.5 FL (7.4-10.4); NEUT# 7.48 X1000 (1.4-6.5); PLT 233 X1000 (130-400); RDW 14.7 % (11.5-14.5)
[2018-10-29 05:39] LABS: ALBUMIN 2.8 g/dL (3.5-5.0); CALCIUM 8.6 mg/dL (8.8-10.2); CREATININE 2.5 mg/dL (0.7-1.2); PHOSPHORUS 5.2 mg/dL (2.7-4.5); POTASSIUM 5.2 mmol/L (3.5-5.1)
[2018-10-29] MEDS: HUMULIN R SUBQ SCH ×4 (06:20→21:24)
--- NOTE | 2018-10-29 07:28 | Diag Imaging Result Doc PS360 ---
CHEST-PORTABLE - 10/29/2018 INDICATION: dyspnea COMPARISON: 10/28/2018 FINDINGS: There is worsening in the severe bilateral alveolar infiltrates. Stable cardiomegaly. Stable small left pleural effusion. IMPRESSION: Worsening, severe bilateral infiltrates. Concerning for ARDS. Electronically signed by Prashanth Valerio 10/29/2018 7:26 AM
[2018-10-29] MEDS ORDERED: NS 1,000 ML IV SCH (07:30)
[2018-10-29] MEDS: ALBUMIN 25% IV SCH (07:37)
[2018-10-29] MEDS: ASPIRIN PO SCH (08:23)
[2018-10-29] MEDS: ALDACTONE PO SCH (08:26)
[2018-10-29] MEDS: APRESOLINE PO SCH ×3 (08:26→17:44)
[2018-10-29] MEDS: LANOXIN PO SCH (08:26)
[2018-10-29] MEDS: LOPRESSOR PO SCH (08:26)
[2018-10-29] MEDS: COLCRYS PO SCH ×2 (08:26→21:17)
[2018-10-29] MEDS: COLACE PO SCH (08:26)
[2018-10-29] MEDS: CARDIZEM CD PO SCH (08:26)
[2018-10-29] MEDS: ISORDIL PO SCH ×3 (08:26→17:44)
[2018-10-29] MEDS: BASAGLAR SUBQ SCH ×2 (08:27→21:17)
[2018-10-29 08:29] LABS: URINE SOURCE CATH
[2018-10-29 09:01] LABS: BILIRUBIN URINE NEGATIVE (NEGATIVE); BLOOD URINE LARGE (NEGATIVE); COLOR BROWN; GLUCOSE URINE NEGATIVE (NEGATIVE); KETONE URINE TRACE mg/dL (NEGATIVE); LEUKOCYTES URINE SMALL (NEGATIVE); NITRITE URINE NEGATIVE (NEGATIVE); PROTEIN URINE 50 mg/dL (NEGATIVE); SP GRAVITY URINE 1.007; TURBIDITY URINE TURBID (CLEAR); UR EPITHELIAL CELLS <10 /HPF (<10); URINE BACTERIA NEGATIVE /HPF; URINE RBC TNTC /HPF (<10); URINE WBC 20-40 /HPF (<10); UROBILINOGEN URINE NORMAL (NORMAL)
[2018-10-29 09:09] LABS: URINE YEAST NONE SEEN
--- NOTE | 2018-10-29 09:22 | PROGRESS NOTE ---
DATE: 10/29/2018 SUBJECTIVE: Mr. Ramirez was admitted on 10/23/2018. His doctor is ALEJANDRA Montenegro. He presented with shortness of breath. A 73-year-old male with history of coronary artery disease, chronic atrial fibrillation, diastolic heart failure, hypertension, diabetes, morbid obesity, chronic kidney disease, who presented with onset of dyspnea that woke him up in the morning around midnight. Woke up with shortness of breath, but no chest pain. No abdominal pain. No nausea or vomiting. No fever. Denies any cough. Reports shortness of breath that is significantly worse when he is lying flat. Complained of worsening lower extremity edema. Reports that he got into the ambulance and his O2 saturations were in 60s. When he got to the ER, they were 89% and then 100%. They were 89% on 100% nonrebreather. Laboratory data shows that he has elevated white count of 15,000. He is hypoxic on his blood gas, and his lactic acid was 5. He had a low-grade fever, tachycardia, and tachypnea. PAST MEDICAL HISTORY: 1. Coronary artery disease. 2. Chronic atrial fibrillation. 3. Diastolic heart failure. Ejection fraction 55%. 4. History of GI bleed. 5. Chronic kidney disease stage 3. 6. Type 2 diabetes mellitus type 2. 7. Gastroesophageal reflux disease. 8. History of possible asbestos exposure. 9. History of transudative pleural effusion, status post thoracentesis. Negative for malignancy. 10. Morbid obesity. 11. Chronic anemia. PAST SURGICAL HISTORY: 1. Colon resection. 2. Coronary stent. 3. Thoracenteses in the past. MEDICATIONS: Review of his medications when he came in, he was on: 1. Bumex 2 mg b.i.d. 2. Cartia XT 240 mg a day. 3. Neurontin 100 mg at night. 4. Lantus 50 units subcutaneously b.i.d. 5. Metoprolol 50 mg p.o. in the morning. 6. Norvasc 10 mg a day. 7. Aspirin 81 mg a day. 8. Lanoxin 125 mcg a day. 9. Colace. 10. Prilosec 20 mg b.i.d. 11. Aldactone 25 mg a day. ADMISSION DIAGNOSES: 1. Acute hypoxic respiratory failure, and appears to have a combination of congestive heart failure exacerbation, likely diastolic in nature, as well as pneumonia. He had been taking Lasix in the emergency room, was given some more Lasix, but also given fluid for possible sepsis. 2. Healthcare-associated pneumonia. Covered him initially with cefepime and Zyvox. 3. Acute diastolic heart failure exacerbation, and tells me they are trying to adjust his fluid level as well. 4. Chronic atrial fibrillation. His rate was stable when he presented. 5. Chronic kidney disease stage 3. 6. Diabetes mellitus type 2. 7. Possibility of sepsis, and meets the criteria. 8. Underlying pneumonia. The patient has been followed by Dr. Petty. He is on BiPAP, and decrease his PA pressures and help mobilize as pleural effusion and giving him diuretics as tolerated. ASSESSMENT: Morbidly obese, obstructive sleep apnea, noncompliant to continuous positive airway pressure device, and recently had an extended stay in the hospital, followed by rehabilitation stay. He has failed attempt to return home alone, and worsening diastolic dysfunction in the face of obstructive sleep apnea, noncompliant to continuous positive airway pressure, likely major contributor, and then underlying renal insufficiency, and suspect elevated pulmonary artery pressures. Echocardiogram on 10/26/2017 showed left ventricular function is somewhere in the range of 50% to 55%. Study was difficult. Ejection fraction with Definity is more in the normal range, 55% to 60%. No sign of pericardial effusion. Aortic valve was calcific, decreased opening, maximum gradient in the valve is 40 mmHg, so a moderate degree of aortic stenosis. Valve area estimated at 1.6 cm2. Mitral valve not well visualized. I do not know that we are able to get PA pressures. He has showed some steady progress. Chest x-ray on 10/27/2017 showed mild decrease in bilateral infiltrates, persistent small left pleural effusion. Cardiology asked to see, Dr. Irene, and his assessment was to continue to try and diurese as we could and reduce the afterload and preload. Put him on a combination of isosorbide dinitrate and hydralazine. Optimize his blood pressure, and put him on a higher dose of diuretics. This morning, he is breathing comfortably. He is on the BiPAP. His chest x-ray from this morning shows worsening severe bilateral infiltrates, and concerning for acute respiratory distress syndrome. PHYSICAL EXAMINATION: Respiratory: Today, lungs are clear anterior and posterior. He was laying on his left side. Cardiovascular: Regular rhythm and rate without murmur or S3. Abdomen: Soft. Skin: Warm and dry. Extremities: No pedal edema at this time. LABORATORY DATA: His lab from this morning shows white count 8500, hematocrit is 24, hemoglobin 7.7, which is fairly stable. Platelet count is 233,000. Electrolytes: Sodium 127, potassium 5.2, chloride 89, BUN 89, creatinine 2.5. Note, his creatinine has steadily gone up a little bit, was running around 2.0. His sodium has gone down a little bit as well. Blood sugars have been running in the 400s. ASSESSMENT AND PLAN: 1. Morbidly obese. Body mass index of 40. Underlying sleep obstructive apnea, diastolic heart failure, pulmonary edema, pleural effusions, acute hypoxemic respiratory failure, acute on chronic renal insufficiency, and probable gout as well. Clinically, he appears to be improving. BUN and creatinine remain elevated, and sodium is coming down just a little bit, so attempting to balance the intake and output, and hope that the renal function continues to improve. 2. Continue cyclic bilevel positive airway pressure at bedtime. He does need outpatient continuous positive airway pressure/bilevel positive airway pressure evaluation. 3. Diabetes. Sugar is still running high. Need to adjust his insulin. 4. History of gout. 5. History of pneumonia, which appears to be clinically improving. cc: Quentin Donaldson MD
[2018-10-29] MEDS ORDERED: INSULIN PEN NEEDLES ONE (09:34)
--- NOTE | 2018-10-29 10:56 | NEPHROLOGY PROGRESS NOTE ---
DATE: 10/29/2018 TIME SEEN: 0750. SUBJECTIVE: Mr. Ramirez is resting quietly in bed. He is more awake today. He is on his BiPAP at 50%. OBJECTIVE: Vital Signs: Temperature 97.8 degrees, blood pressure 151/63, heart rate 73, respirations 18, 50% BiPAP. Last recorded saturation is 96%. He has had 850 in and 1250 out to Bradley catheter. Laboratory Data: Sodium is 127, potassium 5.2, chloride is 89, CO2 24, BUN 89, creatinine 2.5, glucose 320, anion gap of 14, calcium 8.6, phosphorus 5.2, albumin 2.8, magnesium 2.6. White count 8.5, hemoglobin 7.7, hematocrit 24.3, with a platelet count of 233,000. Blood cultures are negative. Right knee culture is negative. The patient had a fractionated urea score completed yesterday indicating 13.98%, prerenal. A renal ultrasound shows the right kidney measuring 10.7, left of 10.1. No hydronephrosis or mass. A 24 hour urine again completed 2 days ago shows a 24 hour urine creatinine clearance of 47% with 318 mg of total protein. Physical Examination: General: This is a 73-year-old, white male. He is currently resting quietly in bed. Head of the bed is elevated. He is currently on BiPAP. He is awake. HEENT: Normocephalic, atraumatic. Conjunctivae are pale. Mucous membranes are dry. Neck: Supple. Trachea midline. Unable to determine JVD due to body habitus and BiPAP strap. Cardiovascular: Irregularly irregular rate. S1 and S2 auscultated. Unable to appreciate any murmur or gallop. Lungs: Diminished breath sounds bilaterally. Poor inspiratory effort. Remains on BiPAP. Abdomen: Obese, soft. Hypoactive bowel sounds. Genitourinary: Bradley catheter is in place. He has adequate urine out in the Bradley bag. He has had large amounts recorded. Integumentary: No rashes or lesions noted to the anterior surface. Extremities: Have 2+ lower extremity edema and upper extremities. Lower extremities have chronic venous stasis. Neurological : Alert and oriented to person and to place. ASSESSMENT AND PLAN: 1. Acute kidney injury overlying chronic kidney disease stage 3. Baseline creatinine is 1.3. Patient's creatinine today is 2.5, slightly up from 2.3. His fractionated urea score shows that he is prerenal, requiring fluids. We will continue to monitor his intake and output, and check labs in the morning. I discussed his volume status and lung disease directly with Dr. Petty. Multi- factorial respiratory failure but clearly still volume overloaded. Hold diuretics today and observe. 2. Electrolytes, mild hyponatremia. Again, normal saline in place. 3. Acid-base balance. This is fairly stable. 4. Anemia. This remains low. We will defer to the primary care team for possible transfusion intervention. 5. Pneumonia versus congestive heart failure. Patient remains on Maxipime. Spironolactone and furosemide are currently held. I would like to thank you for allowing us to follow with this patient. Dictated by ALEJANDRA Reyes for Hunter Iniguez MD Face to face encounter, data reviewed, discussed with Shen Garsia on 10/29/18. I agree with the above assessment and plan of care. cc: ALEJANDRA Reyes MD [facility]
[2018-10-29 11:07] LABS: INR 1.25; PROTIME 16.7 Seconds (11.0-16.0)
[2018-10-29] MEDS ORDERED: NS 250 ML ONE (11:25)
[2018-10-29] MEDS ORDERED: NS 500 ML ONE (13:07)
--- NOTE | 2018-10-29 14:24 | Diag Imaging Result Doc PS360 ---
EXAM: CHEST-PORTABLE HISTORY: confirm PICC line placement TECHNIQUE: Portable chest COMPARISON: 10/29/2018 at 6:08 AM FINDINGS: Interval placement of a right-sided PICC line. The tip overlies the distal superior vena cava. There are dense bilateral infiltrates which remain. No improvement. IMPRESSION: Right-sided PICC line in good position. Electronically signed by Rob Young 10/29/2018 2:22 PM
[2018-10-29] MEDS: PROTONIX IV SCH (14:47)
[2018-10-29] MEDS: HUMULIN 70/30 SUBQ SCH (15:49)
--- NOTE | 2018-10-29 20:26 | PULMONOLOGY PROGRESS NOTE ---
DATE: 10/29/2018 SUBJECTIVE: The patient is awake, alert. Currently is on BiPAP. He is having a PICC line placed. The patient's family reports he has had a fair day. OBJECTIVE: Urine output has diminished over the last 24 hours. BP 127/71, heart rate 61, respiratory rate 21, oxygen saturation 91% on BiPAP. He has been afebrile for the last 24 hours.HEENT: Pupils are equal and reactive. Oropharynx is clear. Neck: Is supple. Chest: Reveals crackles bilaterally. Cardiac: S1-S2. Abdomen: Obese and soft. Extremities: Reveal 1+ peripheral edema. LABORATORIES: White blood count 8.50, hemoglobin 7.7, platelet count 233,000. Sodium 127, potassium 5.2, chloride 89, bicarbonate 24, BUN 89, creatinine 2.5. Chest x-ray reveals cardiomegaly, small pleural effusion, slight increase in pulmonary edema/vascular congestion. IMPRESSION: 73-year-old with morbid obesity, obstructive sleep apnea, diastolic heart failure, pulmonary edema, pleural effusions, acute hypoxemic respiratory failure, gout, with acute on chronic renal insufficiency. His urine output has diminished and his BUN and creatinine remain elevated and slightly worse than the day before. I suspect that an acute renal injury is complicating his current presentation. I do believe he would benefit radiographically from being more fluid negative but that his kidney function may worsen. This case was discussed with Dr. Iniguez today. Recommend holding diuretics today to see if his renal function will improve. I suspect if his kidneys recover then he could be more aggressively diuresed with an increase Lasix at that time. RECOMMENDATIONS: 1. Hold Lasix today unless he develops progressive respiratory distress. 2. Continue daily chest x-rays. 3. We will obtain arterial blood gas tomorrow. cc: Caleb Petty MD
[2018-10-29] MEDS: NEURONTIN PO SCH (21:17)
[2018-10-30] MEDS: MAXIPIME 1 GM in NS 50 ML IV SCH ×2 (03:00→16:13)
[2018-10-30] MEDS: ZYVOX 600 MG/D5W 600 MG/300 ML IVPB IV SCH ×2 (03:00→16:14)
[2018-10-30] MEDS: XOPENEX NEB INH SCH ×6 (03:35→23:08)
[2018-10-30 05:06] LABS: ALLEN TEST YES; BE 1.8 mmoll (-3.0-3.0); BLOOD TYPE ARTERIAL; HCO3-(ACT) 26.3 mmoll (20.0-26.0); METHB 1.5 % (0.0-1.5); O2(CT) 10.9 mL/dL (15.0-23.0); O2HB 93.4 % (95.0-99.0); PCO2(98.6) 42 mmHg (35-45); PO2(98.6) 73 mmHg (60-100); SAMPLE BLOOD; SAO2 97.3 % (95.0-100.0); THB 8.2 g/dL (11.5-17.4); pH(98.6) 7.41 (7.35-7.45)
[2018-10-30 05:08] LABS: MODALITY BI PAP
[2018-10-30 05:50] LABS: ALBUMIN 3.3 g/dL (3.5-5.0); CALCIUM 8.3 mg/dL (8.8-10.2); CREATININE 2.2 mg/dL (0.7-1.2); PHOSPHORUS 4.6 mg/dL (2.7-4.5); POTASSIUM 4.8 mmol/L (3.5-5.1)
[2018-10-30] MEDS: HUMULIN 70/30 SUBQ SCH ×2 (06:39→16:04)
[2018-10-30] MEDS: HUMULIN R SUBQ SCH ×4 (06:39→20:32)
[2018-10-30] MEDS: CARDIZEM CD PO SCH (08:17)
[2018-10-30] MEDS: ISORDIL PO SCH ×3 (08:17→18:06)
[2018-10-30] MEDS: LOPRESSOR PO SCH ×3 (08:17→23:40)
[2018-10-30] MEDS: COLCRYS PO SCH (08:17)
[2018-10-30] MEDS: APRESOLINE PO SCH ×3 (08:17→18:06)
[2018-10-30] MEDS: COLACE PO SCH (08:17)
[2018-10-30] MEDS: ALDACTONE PO SCH (08:17)
[2018-10-30] MEDS: ASPIRIN PO SCH (08:18)
[2018-10-30] MEDS: LANOXIN PO SCH (08:18)
--- NOTE | 2018-10-30 08:26 | PROGRESS NOTE ---
DATE: 10/30/2018 SUBJECTIVE: Mr. Ramirez is awake. He has his BiPAP on. He has kept his BiPAP on really continuously. He reports his breathing seems to be doing a little better. OBJECTIVE: Vital Signs: Temperature is 98.1 degrees, pulse 66, respirations 18, blood pressure 136/65. Eyes: Pupils are equal and round. Lungs: Clear in all lung delarosa anterolateral. Cardiovascular: Regular rhythm and rate without murmur or S3. I do not appreciate any pedal edema at this time. URINE OUTPUT: Was it looks like 4 L. LABORATORY: Blood sugars 288, 283, 134. ASSESSMENT AND PLAN: 1. A 73-year-old, morbid obesity, obstructive sleep apnea, diastolic heart failure, pulmonary edema, pleural effusions, acute hypoxemic respiratory failure and acute on chronic renal insufficiency. We are holding the Lasix. We will go ahead and give the albumin, continue his hydralazine 25 mg t.i.d. He is on isosorbide dinitrate 40 mg t.i.d. He is on Lopressor 50 mg q.a.m. 2. We have treating for pneumonia. This appears to have improved. He is on linezolid 600 mg IV q.12. 3. Atrial fibrillation, rate controlled. He is on digoxin 125 mcg a day, diltiazem CD 240 mg q.a.m. 4. He has acute gouty arthritis. So I am giving him colchicine 0.6 mg b.i.d. PLAN: Continue present regimen. We will go ahead and continue his albumin, holding the Lasix. He needs to be on fluid restriction as well. He is on a healthy heart diet right now. He is not eating much. Especially not eating much breakfast. Continue physical therapy and occupational therapy. We will probably need to look for rehab sometime next week, but he will be here several more days trying to optimize his fluid, pressure balance. cc: Quentin Donaldson MD
--- NOTE | 2018-10-30 09:21 | Diag Imaging Result Doc PS360 ---
EXAM: CHEST-PORTABLE 10/30/2018 HISTORY: abnormal exam TECHNIQUE: AP portable at 0605 COMMENT: There is a right PICC line with its tip in the superior vena cava. There is a pleural effusion on the left. There is hazy interstitial and alveolar opacity bilaterally. Compared to the previous study of 10/29/2018, there has been no appreciable change. IMPRESSION: Left pleural effusion and pulmonary edema and/or pneumonia. Electronically signed by Yehuda Roldan 10/30/2018 9:19 AM
--- NOTE | 2018-10-30 09:29 | NEPHROLOGY PROGRESS NOTE ---
DATE: 10/30/2018 TIME SEEN: 0750. SUBJECTIVE: Mr. Ramirez is resting quietly in bed. He does awaken easily. He has no complaints. OBJECTIVE: Vital Signs: Temperature 98 degrees, blood pressure 133/76, heart rate 76, respirations 22. He remains on BiPAP 50%. Last recorded saturation 96%. He has had 740 in, 940 out to Bradley catheter. Laboratory Data: Sodium 135, potassium 4.8, chloride 95, CO2 25, BUN 111, creatinine 2.2, glucose 153, anion gap of 15, calcium 8.3, phosphorus 4.6, albumin 3.3, magnesium 2.9. Previous hemoglobin is 7.7 on the . ABGs: pH 7.41, CO2 42 , pO2 73, bicarb 26.3 on 50% BiPAP. Digoxin level 1.7. General: This is a 73-year-old white male currently resting in bed. He is in no acute distress, though he appears chronically ill. Skin: Warm and dry. HEENT: Normocephalic, atraumatic. Conjunctiva is pale. He has MKAEDA. Mucous membranes are dry. Neck: Supple, unable to determine JVD. Cardiovascular: S1, S2 noted. No murmur or gallop appreciated. Lungs: Coarse breath sounds bilateral. He remains on BiPAP support. Abdomen: Large, obese, soft, nontender, positive bowel sounds, hypoactive. Genitourinary : Not inspected. Patient has Bradley catheter in place with hematuric urine. 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 Adequate amount. Extremities: Have trace edema. No clubbing or cyanosis. Neurological: The patient is alert and oriented x3. ASSESSMENT AND PLAN: 1. Acute kidney injury on chronic kidney disease. Patient's BUN has continued to rise. It is now up to 111, though his creatinine is down to 2.2. He has had adequate urinary output. No indications for dialysis intervention. 2. Electrolytes and acid-base balance these remain fairly stable. 3. Anemia. This is low but stable. 4. Congestive heart failure versus respiratory failure. Chest x-ray yesterday showed continue pleural effusions on the right. The patient is requiring BiPAP, mostly around the clock to support his respiratory status. His Lasix remains on hold. Albumin has been ordered. This is followed by the primary care team and Dr. Petty. I would like to thank you for allowing us to follow with this patient. Dictated by ALEJANDRA Reyes for Hunter Iniguez MD Face to face encounter, data reviewed, discussed with Shen Garsia on 10/30/18. I agree with the above assessment and plan of care. cc: ALEJANDRA Reyes MD [facility]
[2018-10-30] MEDS: ALBUMIN 25% IV SCH (10:39)
[2018-10-30] MEDS: BASAGLAR SUBQ SCH ×2 (10:39→20:31)
[2018-10-30] MEDS: PROTONIX IV SCH (16:13)
[2018-10-30] MEDS: NEURONTIN PO SCH (20:31)
--- NOTE | 2018-10-31 02:37 | PULMONOLOGY PROGRESS NOTE ---
DATE: 10/30/2018 SUBJECTIVE: The patient is currently on BiPAP. He did have BiPAP off earlier this morning, and tolerated his diet without difficulty. He currently is back on BiPAP sleeping. Family would like to motivate him to move more. OBJECTIVE: Vital Signs: The patient has been afebrile over the last 24 hours. Blood pressure 147/69, heart rate 81, respiratory rate 20, oxygen saturation 91% on 50% BiPAP. HEENT: Pupils are equal and reactive. Oropharynx evaluation is limited with BiPAP in place. Neck: Supple. Chest: Reveals crackles bilaterally. Cardiac: S1-S2. Abdomen: Obese and soft. Extremities: Reveal 1+ peripheral edema. LABORATORIES: Chest x-ray is unchanged. Arterial blood gas reveals a pH 7.41, pCO2 of 42, PO2 of 73. Chemistries reveal sodium 135, potassium 4.8, chloride 95, bicarbonate 25, BUN 11, creatinine 2.2. IMPRESSION: A 73-year-old with morbid obesity, obstructive sleep apnea, diastolic heart failure, pulmonary edema, pleural effusions, acute hypoxemic respiratory failure, gout, [id number] renal failure. His creatinine has decreased, although his BUN is elevated. He has had relatively good urine output over the last 24 hours. His chest x-ray remains stable, and he has not required an increase in his oxygen level. He is able to tolerate removing BiPAP for meals. His Lasix is currently on hold. RECOMMENDATIONS: 1. Agree with holding Lasix today, and follow increased BUN and creatinine. If he develops progressive increase in oxygen requirements, then large doses of Lasix would be initiated, but currently he appears to be stable while the Lasix is being held. 2. Continue daily chest x-rays. 3. Continue daily evaluation of diuretic need. 4. Continue BiPAP and cycling oxygen as needed for hypoxemic respiratory failure. cc: Caleb Petty MD
[2018-10-31] MEDS: XOPENEX NEB INH SCH ×6 (03:05→23:30)
[2018-10-31] MEDS: ZYVOX 600 MG/D5W 600 MG/300 ML IVPB IV SCH (03:56)
[2018-10-31] MEDS: MAXIPIME 1 GM in NS 50 ML IV SCH (03:56)
[2018-10-31 05:59] LABS: ALBUMIN 3.3 g/dL (3.5-5.0); CALCIUM 8.8 mg/dL (8.8-10.2); CREATININE 1.9 mg/dL (0.7-1.2); PHOSPHORUS 3.9 mg/dL (2.7-4.5); POTASSIUM 4.7 mmol/L (3.5-5.1)
[2018-10-31] MEDS: HUMULIN R SUBQ SCH ×2 (06:35→12:04)
[2018-10-31] MEDS: HUMULIN 70/30 SUBQ SCH (06:35)
[2018-10-31] MEDS: ALBUMIN 25% IV SCH (08:04)
[2018-10-31 08:53] LABS: BASO# 0.01 X1000 (0.0-0.2); BASO% 0.1 % (0.0-0.8); EOS# 0.01 X1000 (0.0-0.7); EOS% 0.1 % (0.0-10.0); HEMATOCRIT 28.1 % (42.0-52.0); HEMOGLOBIN 8.8 g/dL (14.0-18.0); IMM GRAN# 0.16 X1000 (0.0-0.04); IMM GRAN% 1.3 % (0.0-0.5); LYMPH# 0.64 X1000 (1.2-3.4); LYMPH% 5.3 % (20.5-51.1); MCHC 31.3 g/dL (33-37); MCV 86.2 FL (81-99); MONO# 0.79 X1000 (0.11-0.59); MONO% 6.6 % (1.7-9.3); MPV 9.9 FL (7.4-10.4); NEUT# 10.43 X1000 (1.4-6.5); NEUT% 86.6 % (42.2-75.2); PLT 285 X1000 (130-400); RBC 3.26 XMIL (4.7-6.1); RDW 15.6 % (11.5-14.5); WBC 12.04 X1000 (4.8-10.8)
[2018-10-31] MEDS ORDERED: COLCRYS PO SCH (09:00)
--- NOTE | 2018-10-31 09:01 | Diag Imaging Result Doc PS360 ---
CHEST-PORTABLE - 10/31/2018 INDICATION: chf COMPARISON: 10/30/2018 FINDINGS: Stable cardiomegaly. Stable extensive bilateral infiltrates. Stable pleural effusions. IMPRESSION: No change from prior. Electronically signed by Prashanth Valerio 10/31/2018 8:59 AM
--- NOTE | 2018-10-31 09:09 | PROGRESS NOTE ---
DATE: 10/31/2018 SUBJECTIVE: Mr. Ramirez had kind of a restless night. The mask seems to be bothering him more. OBJECTIVE: Vital Signs: He remains afebrile. Temperature 97.7 degrees, pulse 74, respirations 24, blood pressure 152/69. Eyes: Pupils are equal and round. Lungs: Clear in all lung delarosa. Cardiovascular exam: Regular rhythm and rate without murmur or S3. Abdomen: Soft. Skin: Warm and dry. Extremities: No pedal edema. : Urine output is 5000 mL. Blood sugar 283, 134 and 130. ASSESSMENT AND PLAN: 1. A 73-year-old, morbidly obese male with obstructive sleep apnea, diastolic heart failure, pulmonary edema, pleural effusions, acute hypoxemic respiratory failure and has acute on chronic renal failure. His creatinine is improved, gone down to 1.9. BUN 103, still down from 111. Sodium 141, potassium 4.7, chloride 101. We will continue to give Lasix as needed. We have held Lasix yesterday. If he develops progressive increased oxygen requirement than large doses of Lasix will need initiated, but currently appears to be stable under Dr. Petty's direction. 2. We will get another chest x-ray this morning. 3. Continue BiPAP and cyclic BiPAP. 4. Acute kidney injury on chronic kidney disease. Patient's BUN continues to rise, but it has dropped and his creatinine is improved. He has had adequate urinary output. Will let Dr. Petty and Dr. Iniguez decide on Lasix administration. 5. Congestive heart failure, diastolic dysfunction. Shows continued pleural effusion on the right. He is requiring BiPAP around the clock. cc: Quentin Donaldson MD
--- NOTE | 2018-10-31 09:42 | EKG Report ---
Test Performed on : 10/31/2018 09:25:22 AM Test Reason : SUSPECT ACUTE [place] Blood Pressure : / mmHG Vent. Rate : 085 BPM Atrial Rate : 067 BPM P-R Int : 000 ms QRS Dur : 100 ms QT Int : 308 ms P-R-T Axes : 000 003 234 degrees QTc Int : 366 ms Atrial fibrillation. with premature ventricular or aberrantly conducted complexes. Low voltage QRS Nonspecific ST and T wave abnormality Abnormal ECG When compared with ECG of 31-OCT-2018 09:24, (Unconfirmed) No significant change was found Suspect T-U fusion Confirmed by Peter Fernandes MD ([id number]) on 10/31/2018 6:48:58 PM
[2018-10-31] MEDS: LASIX IV SCH (09:48)
--- NOTE | 2018-10-31 09:56 | CARDIOLOGY PROGRESS NOTE ---
DATE: 10/31/2018 CHIEF COMPLAINT: Dyspnea, pain in the knee. SUBJECTIVE: Mr. Ramirez seems to have taken a turn for the worse. He is very tachypneic. His atrial fibrillation sometimes is rapid. He says that he is having pain across the chest. OBJECTIVE: VITAL SIGNS: Blood pressure 166/74. Temperature is 91 degrees, pulse 98, respirations 40. He is very tachypneic and in distress. HEENT: Unremarkable. CHEST: Diffusely diminished breath sounds. HEART: Sounds are irregularly irregular. Systolic murmur noted. ABDOMEN: Slightly distended, nontender. EXTREMITIES: Show decreased pulses. No edema. NEUROLOGICAL: Follows commands. Moves 4 extremities. He is very weak. BLOOD WORK: Hemoglobin 8.8, hematocrit 28.1. Sodium is 141, potassium 4.7, BUN 103, creatinine 1.9. His albumin is 3.3. White cell count 4,040. Chest x-ray shows persistent infiltrate bilaterally. IMPRESSION: 1. Patient who appears to be in respiratory distress. He is on 100% oxygen with a BiPAP system. 2. Extensive dense bilateral pulmonary infiltrates. This is most consistent with pneumonitis given the fact that he has already been in the hospital on aggressive therapy for volume overload for the past 8 days. This is not the behavior of usual typical diastolic heart failure. 3. Suspected diastolic heart failure with excellent left ventricular systolic function, mild to moderate degree of aortic stenosis. 4. Anemia. 5. Acute renal failure, prerenal azotemia. Probably cardiorenal syndrome. 6. Gout. RECOMMENDATIONS: At this time, I will request a 12 lead EKG because of the history of coronary heart disease. I cannot rule out the possibility of an acute coronary syndrome on top of everything else. The patient is really extremely ill and given this downturn in his course, I am afraid that he may not survive this hospitalization. We will follow him. cc: Andrés Irene MD
[2018-10-31] MEDS: BASAGLAR SUBQ SCH (10:38)
[2018-10-31] MEDS ORDERED: LASIX IV ONE (11:03)
[2018-10-31] MEDS ORDERED: ATIVAN IV PRN (11:28)
[2018-10-31] MEDS ORDERED: MORPHINE IV PRN (11:28)
[2018-10-31] MEDS ORDERED: LASIX 160 MG in NS 25 ML IV ONE (12:00)
[2018-10-31] MEDS: LOPRESSOR PO SCH (12:04)
[2018-10-31] MEDS: ISORDIL PO SCH (12:05)
[2018-10-31] MEDS: APRESOLINE PO SCH (12:05)
[2018-10-31] MEDS: COLACE PO SCH (12:05)
[2018-10-31] MEDS: ASPIRIN PO SCH (12:05)
[2018-10-31] MEDS: CARDIZEM CD PO SCH (12:06)
[2018-10-31] MEDS ORDERED: ATROPINE 1 % OPHTH SOLN SL PRN ×2 (12:48→20:15)
[2018-10-31] MEDS ORDERED: TYLENOL PR PRN (12:54)
--- NOTE | 2018-10-31 15:33 | NEPHROLOGY PROGRESS NOTE ---
DATE: 10/31/2018 TIME SEEN: 0750 hours. SUBJECTIVE: Mr. Ramirez is resting quietly in bed. Head of the bed is elevated almost at 90 degrees. His sister is at his bedside. He remains on BiPAP. He opens his eyes. He does squeeze my hand while speaking to him. OBJECTIVE: Vital Signs: Temperature 97.7 degrees, blood pressure 152/69, heart rate 74, respirations 24. He is on 90% BiPAP. Last recorded saturation is 93%. He has had 1410 in; he has had 3075 out to Bradley catheter. General: This is a 73-year-old elderly male, who is currently resting in bed. He appears chronically ill. No acute distress. Skin: Warm and dry. HEENT: Normocephalic, atraumatic. Conjunctiva is pale pink. He has MAKEDA. Mucous membranes are dry. Neck: Supple. Trachea midline. Unable to determine JVD due to body habitus. Cardiovascular: S1, S2 noted. Lungs: Have coarse breath sounds bilaterally. Remains on BiPAP. Abdomen: Large, obese, soft, nontender. Positive bowel sounds. Hypoactive. Genitourinary: Not inspected. Bradley catheter is in place with adequate urine out. Extremities: Continues with 1+ to 2+ lower extremity edema. Integumentary: No rashes or lesions evident anteriorly. Neurological: The patient is alert to person and place. LABORATORY DATA: Sodium 141, potassium 4.7, chloride 101, CO2 26. BUN 103, creatinine 1.9, glucose 73, anion gap is 14, calcium 8.8, phosphorus 8.9, albumin 3.3, magnesium 3.1. Previous hemoglobin 7.7 on the -. ASSESSMENT AND PLAN: 1. Acute kidney injury on chronic kidney disease. Patient's BUN and creatinine have remained fairly stable in the last 24 hours with a BUN of 103, creatinine 1.9. He has had adequate urine output. He continues on Lasix 80 every 12 hours started yesterday. 2. Electrolytes and acid-base balance. These remain stable. 3. Anemia. Hemoglobin is 7.7 on the -. We will check another hemoglobin this morning. 4. Congestive heart failure with respiratory failure. This is followed by Pulmonology and Primary Care. Again, patient has been started back on his Lasix. I would like to thank you for allowing us to follow with this patient. Dictated by ALEJANDRA Reyes for Hunter Iniguez MD cc: ALEJANDRA Reyes MD
[2018-10-31] MEDS: ATIVAN IV PRN ×4 (16:04→23:07)
[2018-10-31] MEDS: MORPHINE IV PRN ×4 (16:05→23:05)
[2018-10-31 19:24] VITALS: BP 167/52
--- NOTE | 2018-10-31 20:46 | PULMONOLOGY PROGRESS NOTE ---
DATE: 10/31/2018 INTERIM HISTORY: The patient has had a clinical decline over the last 24 hours. Family reports he has had increased shortness of breath through the evening. He has significant increased work of breathing this morning. His oxygen requirements have increased from 50% to 90%. He has started receiving morphine for comfort. He has had a Palliative Care consultation, and palliative care measures have been instituted. OBJECTIVE: Vital Signs: BP 181/69, heart rate 111, respiratory rate 36, oxygen saturation 86% on BiPAP. HEENT: Pupils are equal and reactive. Oropharynx is dry with BiPAP in place. Neck: Supple. Chest: Scattered crackles bilaterally. Cardiac: Increased rate, irregular rhythm. Abdomen: Obese and soft. Extremities: 2+ peripheral edema. DIAGNOSTIC STUDIES: Sodium 141, potassium 4.7, chloride 101, bicarbonate 26, BUN 103, creatinine 1.9. Chest x-ray reveals stable bilateral infiltrates, left-sided effusion, and cardiomegaly. IMPRESSION: A 73-year-old with: 1. Morbid obesity. 2. Obstructive sleep apnea. 3. Diastolic heart failure. 4. Pulmonary edema. 5. Pleural effusions. 6. Acute hypoxemic respiratory failure. 7. Acute on chronic renal failure. The patient's creatinine appears to have plateaued, and his BUN is slightly declined. Unfortunately, he looks significantly worse this morning, and his oxygen requirements have significantly increased. His prognosis today looks worse than his prognosis did yesterday which was not good to begin with. At family's request, we will be pursuing comfort measures. RECOMMENDATIONS: 1. Large-dose Lasix given earlier today. 2. Continue BiPAP for comfort. 3. Continue morphine for comfort. 4. Prognosis is poor as outlined above. cc: Caleb Petty MD
[2018-11-01] MEDS: ATIVAN IV PRN ×2 (01:36→03:06)
[2018-11-01] MEDS: MORPHINE IV PRN ×2 (01:36→03:36)
[2018-11-01] MEDS: XOPENEX NEB INH SCH (03:35)
--- NOTE | 2018-11-01 15:28 | DISCHARGE SUMMARY ---
ADMISSION DATE: 10/23/2018 DISCHARGE DATE: 11/01/2018 SUMMARY: Date of : Morning of 11/01/2018. He is a patient of ALEJANDRA Tafoya. He presented on 10/23/2018. HISTORY: A 73-year-old male with history of coronary artery disease, chronic atrial fib, diastolic heart failure, hypertension, diabetes mellitus, morbid obesity, chronic kidney disease. He had new onset of dyspnea. He woke up around midnight with shortness of breath but no chest pain. No abdominal pain. No nausea or vomiting. No fever. He denied any cough; just increased dyspnea even lying flat with exertion and complaining of increased lower extremity edema. Came in by ambulance. O2 saturations were in the 60s. Emergency room was able to bring up to 89% with 100% non-rebreather. Lab data showed an elevated white count of 15,000. He was hypoxic on blood gases with a lactic acid of 5, low-grade fever, tachycardia, tachypnea and was admitted with respiratory failure. PAST MEDICAL HISTORY: 1. Coronary artery disease. 2. Chronic atrial fibrillation. 3. Diastolic heart failure. Ejection fraction 55%. 4. History of GI bleeding. 5. Chronic kidney disease, stage 3. 6. Diabetes mellitus, type 2. 7. Gastroesophageal reflux disease. 8. History of possible asbestosis exposure. 9. History of transudative pleural effusion, status post thoracentesis. Negative for malignancy. 10. Morbid obesity. 11. Chronic anemia. ADMISSION DIAGNOSES: 1. Acute hypoxemic respiratory failure with combination of diastolic heart failure, pneumonia, and obstructive apnea. His pulmonary arteriogram did not show any pulmonary embolus but renal function he has acute-on- chronic kidney injury. 2. Suspected pneumonia, healthcare-associated. Covered him for gram-negative. 3. Chronic diastolic heart failure with exacerbation. 4. Underlying chronic atrial fibrillation, loss of his atria quick. 5. Obstructive sleep apnea. 6. Chronic kidney disease. 7. Diabetes. 8. It appeared that he had criteria of sepsis when he came in the hospital. He was diuresed and given antibiotics and for a time seemed to see limited improvement. Echocardiogram repeated on 10/26/2018: His left ventricular function appeared to be ejection fraction 50%-55%. The study was difficulty, and his ejection fraction actually may be 55% to 60%. Did not seem pericardial effusion. No significant valvular dysfunction. We diuresed him and was watching his renal function, and we gave him some albumin. Cardiology was involved. We actually asked Orthopedic to look at him. He had right knee degenerative joint disease, possible gout. He was started on some allopurinol clinically. His chest x-rays showed some improvement, but was still requiring BiPAP. Renal ultrasound done on 10/28/2018 showed no evidence of obstructive uropathy. Nephrology was asked to see the patient and felt he had acute kidney injury overlying chronic kidney disease. Baseline creatinine is 1.3. and it appears to be multifactorial acute tubular necrosis. He has had several arteriograms performed. Last one was on 10/26/2018, and we were continuing diuretic therapy. He is very weak. Appetite was poor, and on 10/31/2018 we held the diuretics because the creatinine had increased. Family convened and they really wanted to go to comfort measures. He seemed to make a turn for the worse on the morning of 10/31/2018 with increased tachypnea. His lungs appeared to have more pulmonary edema. He had not eaten really hardly anything in the last couple of days, so, we went to comfort measures, and plans were to move him to a private floor, and we gave him some morphine and some Ativan to help with comfort care. Time of was 4:50. Two RNs pronounced him at 4:50 on 11/01/2018. cc: MD BRYN Peres
== END 2018-11-01 04:50 | disposition expired | DRG 871 ==
LOC: SUPCPDRO → ED 11:02 → SUATTDRO 14:20 → EDIPHOLD 14:20 → 3S 10-25 15:27 → 3N 10-31 22:22
PROVIDERS: ATTEND Emergency Medicine
CPT/HCPCS: 36569; 51702; 71010; 71045; 71275; 73562; 76770; 80048; 80053; 80069; 80162; 81001; 81050; 82378; 82550; 82570; 82575; 82805; 82948; 83605; 83735; 83880; 84145; 84156; 84300; 84484; 84540; 84550; 85025; 85379; 85610; 85651; 85730; 86140; 87040; 87070; 87081; 87088; 87205; 87275; 87276; 87430; 87804; 89051; 93005; 93010; 93306; 94640; 94660; 94761; 94762; 94799; 96365; 96366; 96367; 96368; 96372; 96375; 96376; 97110; 97162; 97166; 97530; 99285; A9270; C8924; C9113; J0692; J0696; J1815; J1940; J2020; J2060; J2270; J7030; J7040; J7050; P9047; Q9957; Q9967; S0164; XXXXX